=== PATIENT | male | born 1940 | race Caucasian/White ===

== ENCOUNTER 2016-11-13 05:58 | Observation (INO) | payer OTHER ==
[~2016-11-13] VITALS: Ht 172.7 cm; Wt 83.4 kg
[2016-11-13] VITALS (7 sets, daily range): BP systolic 97–130; BP diastolic 65–96; PULSE 62–89; RESP 15–20; TEMP 96–97; O2SAT 95–98
[~2016-11-13 05:58] MED LIST: CHOL50006 PO; COUM1TAB PO; COUM2TAB PO; HYDR12.56 PO; LIPI40TA PO; LISI20TA3 PO; MAGN500T4 PO; METO100T9 PO; OMEP20TA PO; VITA250L BUCCAL
[2016-11-13] MEDS ORDERED: DILTIAZEM HCL 25 MG/5 ML VIAL IV PUSH ONE (06:15)
[2016-11-13] MEDS ORDERED: SODIUM CHLORIDE 0.9% FLUSH 10 ML FLUSH IVF PRN (06:15)
[2016-11-13] MEDS ORDERED: DILTIAZEM INJ 125 MG in SODIUM CHLORIDE 0.9% INJ 100 ML IV PRN (06:15)
--- NOTE | 2016-11-13 06:20 | PD ---
HPI Chief Complaint: chest pain Time Seen by Provider: 06:08 Travel History International Travel<30 days: No Contact w/Intl Traveler<30days: No Traveled to known affect area: No History of Present Illness HPI The patient is a 75-year-old male with a history of coronary artery disease and atrial fibrillation who complains of chest tightness, nausea, palpitations, shortness of breath and diaphoresis for about 24 hours. He normally is in sinus rhythm but apparently is been in atrial fibrillation in the last [address] Fajardo is his construction coordinator and Dr. Harsha Hodge is his primary care physician. He denies any syncopal or near syncopal spells. The fullness is retrosternal. PFSH Past Medical History Hx Anticoagulant Therapy: Yes (COUMADIN) Atrial Fibrillation: Yes Anxiety: Yes Depression: No Heart Rhythm Problems: Yes (HX OF AFIB ) Cancer: No Cardiovascular Problems: No High Cholesterol: Yes Cerebrovascular Accident: Yes Diabetes: No Endocrine: No Genitourinary: No Hypertension: Yes Immune Disorder: No Kidney Stones: Yes Musculoskeletal: No Neurologic: No Psychiatric: Yes Reproductive: No Respiratory: No Thyroid Disease: No Past Surgical History Genitourinary Surgery: Yes Pacemaker: No Other Surgery: Yes (HERNIA SX X3) Social History Alcohol Use: Yes (SOCIALLY) Tobacco Use: No Substance Use: No Allergies-Medications (Allergen,Severity, Reaction): Coded Allergies: No Known Allergies (Unverified , 11/13/16) Reported Meds & Prescriptions Reported Meds & Active Scripts Active Reported Tamsulosin (Tamsulosin HCl) 0.4 Mg Cap 0.4 Mg PO HS Metoprolol Succinate ER 24 HR (Metoprolol Succinate) 100 Mg Tab 100 Mg PO DAILY Omeprazole 20 Mg Tab 20 Mg PO DAILY Lisinopril-Hctz 20-25 Mg Tab 1 Tab PO DAILY Hydrochlorothiazide 12.5 Mg Tab 12.5 Mg PO DAILY Vitamin B-12 (Cyanocobalamin) 250 Mcg Lozg 250 Mcg BUCCAL DAILY Lipitor (Atorvastatin Calcium) 40 Mg Tab 40 Mg PO HS Coumadin (Warfarin) 2 Mg Tab 2 Mg PO TU Coumadin (Warfarin) 1 Mg Tab 1.5 Mg PO MOWETHFRSASU Review of Systems Except as stated in HPI: all other systems reviewed are Neg Physical Exam Narrative GENERAL: The patient is alert, oriented 3 in moderate apparent distress with his nausea, chest discomfort. Blood pressure is 140/101, heart rate 108, chemistry 97% on 2 L nasal cannula, respirations 20, temperature 97.5 SKIN: Focused skin assessment: the skin is cool and diaphoretic.. HEAD: Atraumatic. Normocephalic. EYES: Pupils equal and round. No scleral icterus. No injection or drainage. ENT: No nasal bleeding or discharge. Mucous membranes pink and moist. NECK: Trachea midline. No JVD. No neck vein distention is present. CARDIOVASCULAR: Atrial fibrillation with RVR rhythm. No murmur appreciated. RESPIRATORY: No accessory muscle use. Clear to auscultation. Breath sounds equal bilaterally. GASTROINTESTINAL: Abdomen soft, non-tender, nondistended. Hepatic and splenic margins not palpable. MUSCULOSKELETAL: No obvious deformities. No clubbing. No cyanosis. No edema. NEUROLOGICAL: Awake and alert. No obvious cranial nerve deficits. Motor grossly within normal limits. Normal speech. PSYCHIATRIC: Appropriate mood and affect; insight and judgment normal. Data Data Last Documented VS Vital Signs Date Time Temp Pulse Resp B/P (MAP) Pulse Ox O2 Delivery O2 Flow Rate FiO2 11/13/16 06:45 62 20 102/65 (77) 97 2.00 11/13/16 06:45 Nasal Cannula Orders Orders Vital Signs (Adult) [id number],Q4H (11/13/16 06:08) Telephone Claims Representative / Telemetry [place].Q8H (11/13/16 06:08) Cardiac Rhythm [place].Q8H (11/13/16 06:08) Notify Dr: Other (11/13/16 06:08) Diltiazem Inj (Cardizem Inj) (11/13/16 06:15) Diltiazem Inj (Cardizem Inj) (11/13/16 06:15) Electrocardiogram (11/13/16 06:08) Complete Blood Count With Diff (11/13/16 06:08) Comprehensive Metabolic Panel (11/13/16 06:08) Magnesium (Mg) (11/13/16 06:08) Prothrombin Time / Inr (Pt) (11/13/16 06:08) Troponin I (11/13/16 06:08) Ecg Monitoring (11/13/16 06:08) Iv Access Insert/Monitor (11/13/16 06:08) Oximetry (11/13/16 06:08) Oxygen Administration (11/13/16 06:08) Sodium Chloride 0.9% Flush (Ns Flush) (11/13/16 06:15) Chest, Pa & Lat (11/13/16 06:08) B-Type Natriuretic Peptide (11/13/16 06:23) Potassium Chloride (Kcl) (11/13/16 07:00) Labs Laboratory Tests Test 11/13/16 06:00 White Blood Count 6.0 TH/MM3 Red Blood Count 5.00 MIL/MM3 Hemoglobin 16.0 GM/DL Hematocrit 47.6 % Mean Corpuscular Volume 95.3 FL Mean Corpuscular Hemoglobin 32.0 PG Mean Corpuscular Hemoglobin Concent 33.5 % Red Cell Distribution Width 13.1 % Platelet Count 134 TH/MM3 Mean Platelet Volume 9.4 FL Neutrophils (%) (Auto) 71.0 % Lymphocytes (%) (Auto) 14.1 % Monocytes (%) (Auto) 10.4 % Eosinophils (%) (Auto) 3.6 % Basophils (%) (Auto) 0.9 % Neutrophils # (Auto) 4.3 TH/MM3 Lymphocytes # (Auto) 0.8 TH/MM3 Monocytes # (Auto) 0.6 TH/MM3 Eosinophils # (Auto) 0.2 TH/MM3 Basophils # (Auto) 0.1 TH/MM3 CBC Comment DIFF FINAL Differential Comment Prothrombin Time 28.2 SEC Prothromb Time International Ratio 2.5 RATIO Blood Urea Nitrogen 24 MG/DL Creatinine 1.30 MG/DL Random Glucose 134 MG/DL Total Protein 7.6 GM/DL Albumin 3.9 GM/DL Calcium Level 8.7 MG/DL Magnesium Level 1.5 MG/DL Alkaline Phosphatase 89 U/L Aspartate Amino Transf (AST/SGOT) 27 U/L Alanine Aminotransferase (ALT/SGPT) 29 U/L Total Bilirubin 1.6 MG/DL Sodium Level 141 MEQ/L Potassium Level 3.3 MEQ/L Chloride Level 105 MEQ/L Carbon Dioxide Level 25.9 MEQ/L Anion Gap 10 MEQ/L Estimat Glomerular Filtration Rate 54 ML/MIN Troponin I LESS THAN 0.02 NG/ML MDM Medical Decision Making Medical Screen Exam Complete: Yes Emergency Medical Condition: Yes Medical Record Reviewed: Yes Interpretation(s) The EKG shows atrial fibrillation with RVR, ventricular rate [address] elevation, slight ST depression in V3, V4, V5 and V6. The chest x-ray shows stable mild cardiomegaly. The complete metabolic profile shows potassium 3.3, BUN of 24, GFR of 54, glucose 134 with total bilirubin 1.6 but is otherwise normal. The troponin I is normal. The ProTime is 28.2 with an INR of 2.5. Differential Diagnosis Atrial fibrillation with rapid ventricular response, acute coronary syndrome, esophageal pain, gastrointestinal pain, pleuritic pain, chest wall pain, electrolyte disorder, non-STEMI myocardial infarction Narrative Course Shortly after we gave the patient oxygen and the patient felt much better, his pain went away along with his nausea. He is no longer diaphoretic. It is now 0 640 and the patient was given Cardizem. His heart rate is now approximately 75. He is still in atrial fibrillation. He feels fine without any shortness of breath, chest pain, diaphoresis or nausea. It is now 0708 and the patient is transferred to Dr. Sprague. The patient is still asymptomatic. Diagnosis Primary Impression: Atrial fibrillation with RVR Jagdish Francis MD Nov 13, 2016 06:20
[2016-11-13] MEDS ORDERED: METO100T9 PO (06:22)
[2016-11-13] MEDS ORDERED: TAMS0.4C4 PO (06:22)
[2016-11-13 06:29] LABS: AUTOMATED NEUTROPHIL # 4.3 TH/MM3 (1.8-7.7); BASOPHIL # 0.1 TH/MM3 (0-0.2); BASOPHIL % 0.9 % (0.0-2.0); EOSINOPHIL # 0.2 TH/MM3 (0-0.4); EOSINOPHIL % 3.6 % (0.0-4.0); HEMATOCRIT 47.6 % (39.0-51.0); HEMO FLAGS DIFF FINAL; LYMPH % 14.1 % (9.0-44.0); LYMPHOCYTE # 0.8 TH/MM3 (1.0-4.8); MEAN CELL VOLUME 95.3 FL (80.0-100.0); MEAN CORPUSCULAR HGB CONC 33.5 % (32.0-36.0); MONO % 10.4 % (0.0-8.0); PLATELET COUNT 134 TH/MM3 (150-450); RED CELL DISTRIBUTION WIDTH 13.1 % (11.6-17.2)
[2016-11-13 06:41] LABS: CHLORIDE 105 MEQ/L (98-107); POTASSIUM 3.3 MEQ/L (3.5-5.1); SODIUM (NA) 141 MEQ/L (136-145)
[2016-11-13 06:44] LABS: INTERNATIONAL NORMALIZED RATIO 2.5 RATIO; PROTHROMBIN TIME - PATIENT 28.2 SEC (9.8-11.6)
[2016-11-13 06:45] LABS: ANION GAP 10 MEQ/L (5-15); BICARBONATE 25.9 MEQ/L (21.0-32.0)
[2016-11-13 06:46] LABS: BLOOD UREA NITROGEN 24 MG/DL (7-18); MAGNESIUM 1.5 MG/DL (1.5-2.5)
[2016-11-13 06:48] LABS: ALT (GPT) 29 U/L (12-78)
[2016-11-13 06:49] LABS: AST (GOT) 27 U/L (15-37); GLOMERULAR FILTRATION RATE 54 ML/MIN (>89)
[2016-11-13 06:50] LABS: TOTAL BILIRUBIN ADULT 1.6 MG/DL (0.2-1.0)
[2016-11-13 06:52] LABS: ALKALINE PHOSPHATASE 89 U/L (45-117)
--- NOTE | 2016-11-13 06:54 | RADRPT ---
EXAM DATE/TIME: 11/13/2016 06:24 [facility] COMPARISON: CHEST SINGLE AP, January 22, 2016, 17:39. INDICATIONS : Chest pain. MEDICAL HISTORY : Hypertension. Aneurysm, abdominal. Afib. CVA. SURGICAL HISTORY : Rotator cuff, left. Hernia ENCOUNTER: Initial ACUITY: 1 day PAIN SCORE: 7/10 LOCATION: Bilateral chest FINDINGS: PA and lateral views of the chest demonstrate the lungs to be symmetrically aerated without evidence of mass, infiltrate or effusion. The heart size appears mildly enlarged, stable. Pulmonary vasculatu re is normal.. Osseous structures are intact. CONCLUSION: Stable mild cardiomegaly. No evidence of acute cardiopulmonary disease. Qing Alva MD on November 13, 2016 at 6:50 Board Certified Radiologist. This report was verified electronically.
[2016-11-13] MEDS ORDERED: POTASSIUM CHLORIDE 20 MEQ CONTROLLED RELEASE TAB PO ONE (07:00)
[2016-11-13] MEDS ORDERED: MAGNESIUM HYDROXIDE SUSP 30 ML CUP PO PRN (07:30)
[2016-11-13] MEDS ORDERED: LACTULOSE SYRUP 20 GM/30 ML CUP PO PRN (07:30)
[2016-11-13] MEDS ORDERED: ONDANSETRON HCL 4 MG/2 ML VIAL IVP PRN (07:30)
[2016-11-13] MEDS ORDERED: BISACODYL 10 MG SUPP RECTAL PRN (07:30)
[2016-11-13] MEDS ORDERED: SENNOSIDES 8.6 MG TAB PO PRN (07:30)
[2016-11-13] MEDS ORDERED: MORPHINE SULFATE 4 MG/ML INJ IV PUSH PRN ×2 (07:30)
[2016-11-13] MEDS ORDERED: NITROGLYCERIN 0.4 MG SL 25 TABS/BTL SL PRN (07:30)
[2016-11-13] MEDS ORDERED: SODIUM CHLORIDE 0.9% FLUSH 10 ML FLUSH IV FLUSH PRN (07:30)
[2016-11-13] MEDS ORDERED: NALOXONE HCL 0.4 MG/ML AMP IV PUSH PRN (07:30)
--- NOTE | 2016-11-13 07:57 | PD ---
Physical Exam Narrative GENERAL: Well-nourished, well-developed patient. SKIN: Warm and dry. HEAD: Normocephalic and atraumatic. EYES: No injection or drainage. ENT: No nasal drainage noted. NECK: Supple, trachea midline. CARDIOVASCULAR: irregular rate and rhythm RESPIRATORY: no increased effort. No accessory muscle use. NEUROLOGICAL: Awake and alert. moves all extremities. Normal speech. Data Data Last Documented VS Vital Signs Date Time Temp Pulse Resp B/P (MAP) Pulse Ox O2 Delivery O2 Flow Rate FiO2 11/13/16 07:08 60 20 97 11/13/16 06:45 102/65 (77) 2.00 11/13/16 06:45 Nasal Cannula Orders Orders Vital Signs (Adult) [id number],Q4H (11/13/16 06:08) Manufacture Specialist / Telemetry [place].Q8H (11/13/16 06:08) Cardiac Rhythm [place].Q8H (11/13/16 06:08) Notify Dr: Other (11/13/16 06:08) Diltiazem Inj (Cardizem Inj) (11/13/16 06:15) Diltiazem Inj (Cardizem Inj) (11/13/16 06:15) Electrocardiogram (11/13/16 06:08) Complete Blood Count With Diff (11/13/16 06:08) Comprehensive Metabolic Panel (11/13/16 06:08) Magnesium (Mg) (11/13/16 06:08) Prothrombin Time / Inr (Pt) (11/13/16 06:08) Troponin I (11/13/16 06:08) Ecg Monitoring (11/13/16 06:08) Iv Access Insert/Monitor (11/13/16 06:08) Oximetry (11/13/16 06:08) Oxygen Administration (11/13/16 06:08) Sodium Chloride 0.9% Flush (Ns Flush) (11/13/16 06:15) Chest, Pa & Lat (11/13/16 06:08) B-Type Natriuretic Peptide (11/13/16 06:23) Potassium Chloride (Kcl) (11/13/16 07:00) Admit Order (Ed Use Only) (11/13/16 07:18) Place In Observation (11/13/16 ) Vital Signs (Adult) Q4H (11/13/16 07:18) Activity Oob With Assistance (11/13/16 07:18) Manufacture Specialist / Telemetry .CONTINUOUS (11/13/16 07:18) Diet Heart Healthy (11/13/16 Breakfast) Sodium Chloride 0.9% Flush (Ns Flush) (11/13/16 07:30) Sodium Chloride 0.9% Flush (Ns Flush) (11/13/16 09:00) Ondansetron Inj (Zofran Inj) (11/13/16 07:30) Comprehensive Metabolic Panel (11/14/16 06:00) Complete Blood Count With Diff (11/14/16 06:00) Enoxaparin Inj (Lovenox Inj) (11/13/16 08:00) Morphine Inj (Morphine Inj) (11/13/16 07:30) Morphine Inj (Morphine Inj) (11/13/16 07:30) Naloxone Inj (Narcan Inj) (11/13/16 07:30) Docusate Sodium-Senna (Kelsey-Colace) (11/13/16 09:00) Magnesium Hydroxide Liq (Milk Of Magnesi (11/13/16 07:30) Sennosides (Senokot) (11/13/16 07:30) Bisacodyl Supp (Dulcolax Supp) (11/13/16 07:30) Lactulose Liq (Lactulose Liq) (11/13/16 07:30) Labs Laboratory Tests Test 11/13/16 06:00 White Blood Count 6.0 TH/MM3 Red Blood Count 5.00 MIL/MM3 Hemoglobin 16.0 GM/DL Hematocrit 47.6 % Mean Corpuscular Volume 95.3 FL Mean Corpuscular Hemoglobin 32.0 PG Mean Corpuscular Hemoglobin Concent 33.5 % Red Cell Distribution Width 13.1 % Platelet Count 134 TH/MM3 Mean Platelet Volume 9.4 FL Neutrophils (%) (Auto) 71.0 % Lymphocytes (%) (Auto) 14.1 % Monocytes (%) (Auto) 10.4 % Eosinophils (%) (Auto) 3.6 % Basophils (%) (Auto) 0.9 % Neutrophils # (Auto) 4.3 TH/MM3 Lymphocytes # (Auto) 0.8 TH/MM3 Monocytes # (Auto) 0.6 TH/MM3 Eosinophils # (Auto) 0.2 TH/MM3 Basophils # (Auto) 0.1 TH/MM3 CBC Comment DIFF FINAL Differential Comment Prothrombin Time 28.2 SEC Prothromb Time International Ratio 2.5 RATIO Blood Urea Nitrogen 24 MG/DL Creatinine 1.30 MG/DL Random Glucose 134 MG/DL Total Protein 7.6 GM/DL Albumin 3.9 GM/DL Calcium Level 8.7 MG/DL Magnesium Level 1.5 MG/DL Alkaline Phosphatase 89 U/L Aspartate Amino Transf (AST/SGOT) 27 U/L Alanine Aminotransferase (ALT/SGPT) 29 U/L Total Bilirubin 1.6 MG/DL Sodium Level 141 MEQ/L Potassium Level 3.3 MEQ/L Chloride Level 105 MEQ/L Carbon Dioxide Level 25.9 MEQ/L Anion Gap 10 MEQ/L Estimat Glomerular Filtration Rate 54 ML/MIN Troponin I LESS THAN 0.02 NG/ML MDM Supervised Visit with SOPHIA: No Interpretation(s) CBC & BMP Diagram 11/13/16 06:00 Total Protein 7.6, Albumin 3.9, Calcium Level 8.7, Magnesium Level 1.5, Alkaline Phosphatase 89, Aspartate Amino Transf (AST/SGOT) 27, Alanine Aminotransferase (ALT/SGPT) 29, Total Bilirubin 1.6 H Narrative Course Signed over to me to admit to the hospitalist, patient updated and denies new concerns Physician Communication Physician Communication dr langston agrees to admit Diagnosis Primary Impression: Atrial fibrillation with RVR Admitting Information Admitting Physician Requests: Admit Josefa Lopez MD Nov 13, 2016 07:57
[2016-11-13] MEDS ORDERED: ENOXAPARIN SODIUM 40 MG/0.4 ML SYRINGE SQ SCH (08:00)
--- NOTE | 2016-11-13 08:16 | EKG ---
Date Performed: 11/13/2016 Time Performed: 06:04:18 PTAGE: 75 years EKG: ATRIAL FIBRILLATION WITH RAPID VENTRICULAR RESPONSE LEFT AXIS DEVIATION INCOMPLETE RIGHT BU NDLE BRANCH BLOCK NONSPECIFIC ST DEPRESSION ABNORMAL ECG NO PREVIOUS TRACING DOCTOR: Kev Shirley Interpretating Date/Time 11/13/2016 08:14:46
[2016-11-13] MEDS ORDERED: PILL SPLITTER OTHER PRN (08:45)
[2016-11-13] MEDS ORDERED: HYDROCHLOROTHIAZIDE 12.5 MG CAP PO SCH (09:00)
[2016-11-13] MEDS ORDERED: NON-FORMULARY DRUG (Lisinopril-Hctz 1 TAB) PO SCH (09:00)
[2016-11-13] MEDS ORDERED: LISINOPRIL 20 MG TAB PO SCH (09:00)
[2016-11-13] MEDS: CYANOCOBALAMIN 100 MCG TAB PO SCH (09:00)
[2016-11-13] MEDS ORDERED: METOPROLOL SUCCINATE 50 MG EXTENDED RELEASE TAB PO SCH (09:00)
[2016-11-13] MEDS: DOCUSATE SODIUM 50 MG/SENNA 8.6 MG TAB PO SCH ×2 (09:00→21:00)
--- NOTE | 2016-11-13 11:00 | HHI.HP ---
[facility] Harsha Hodge MD Admission Diagnosis afib with rvr, chest pain Diagnoses: (1) Nausea Diagnosis: Principal (2) Atrial fibrillation with RVR Diagnosis: Principal (3) Atrial fibrillation with rapid ventricular response Diagnosis: Principal (4) Dyspnea Diagnosis: Principal Travel History International Travel<30 Days: No Contact w/Intl Traveler <30 Da: No Traveled to Known Affected Are: No History of Present Illness Mr. Shrestha is a 75-year-old male. He has a history of paroxysmal atrial fibrillation. He reports that he was having shortness of breath, weakness, and nausea/came into the emergency department. At that point he was found to have A. fib RVR. He was treated with diltiazem and has had resolution of his tachyarrhythmia. He is feeling back to baseline when seen with resolution of shortness of breath and nausea. Shortness of breath and nausea could represent ACS, so ACS evaluation has been initiated. As an outpatient he follows with Dr. Shah. Other baseline medical conditions are hypertension and hyperlipidemia. He has a CVA in 2013 and has had abdominal hernia surgeries. Also he's had left shoulder arthroscopy. No other complaints today. Review of Systems Constitutional: COMPLAINS OF: Fatigue, DENIES: Fever, Chills, Dizziness, Change in appetite Endocrine: DENIES: Heat/cold intolerance Eyes: DENIES: Blurred vision, Diplopia, Eye inflammation, Eye pain Ears, nose, mouth, throat: DENIES: Tinnitus, Hearing loss, Vertigo Respiratory: COMPLAINS OF: Shortness of breath, DENIES: Cough, Wheezing, Hemoptysis, Sputum production Cardiovascular: COMPLAINS OF: Dyspnea on Exertion, DENIES: Chest pain, Palpitations, Syncope Gastrointestinal: COMPLAINS OF: Nausea, DENIES: Abdominal pain, Black stools, Bloody stools Musculoskeletal: DENIES: Joint pain, Muscle aches, Stiffness Integumentary: DENIES: Abnormal pigmentation, Nail changes, Pruritus, Rash Hematologic/lymphatic: DENIES: Bruising, Lymphadenopathy Immunologic/allergic: DENIES: Eczema, Urticaria Neurologic: DENIES: Abnormal gait, Headache, Paresthesias Psychiatric: DENIES: Anxiety, Confusion, Hallucinations Past Family Social History Past Medical History Paroxysmal atrial fibrillation Hypertension Hyperlipidemia Past Surgical History Abdominal hernia repair Left shoulder arthroscopy Reported Medications Reported Meds & Active Scripts Active Reported Tamsulosin (Tamsulosin HCl) 0.4 Mg Cap 0.4 Mg PO HS Metoprolol Succinate ER 24 HR (Metoprolol Succinate) 100 Mg Tab 100 Mg PO DAILY Omeprazole 20 Mg Tab 20 Mg PO DAILY Lisinopril-Hctz 20-25 Mg Tab 1 Tab PO DAILY Hydrochlorothiazide 12.5 Mg Tab 12.5 Mg PO DAILY Vitamin B-12 (Cyanocobalamin) 250 Mcg Lozg 250 Mcg BUCCAL DAILY Lipitor (Atorvastatin Calcium) 40 Mg Tab 40 Mg PO HS Coumadin (Warfarin) 2 Mg Tab 2 Mg PO TU Coumadin (Warfarin) 1 Mg Tab 1.5 Mg PO MOWETHFRSASU Allergies: Coded Allergies: No Known Allergies (Unverified , 11/13/16) Active Ordered Medications Administered Medications Medications (Trade) Dose Ordered Sig/Makenna Route PRN Reason Start Time Stop Time Status Last Admin Dose Admin Diltiazem HCl 125 mg/Sodium Chloride 125 ml @ 5 mls/hr TITRATE PRN IV Tachycardia 11/13/16 06:15 11/13/16 06:39 Family History Brother had heart disease Father had an acute CVA Mother had bladder cancer. Social History Social drinking only Past history of smoking, quit 40 years ago. No illicit drug abuse Physical Exam Vital Signs Vital Signs Date Time Temp Pulse Resp B/P (MAP) Pulse Ox O2 Delivery O2 Flow Rate FiO2 11/13/16 09:23 96.6 70 16 118/88 (98) 96 11/13/16 08:22 11/13/16 07:42 74 16 97/65 (76) 98 Room Air 11/13/16 07:08 60 20 97 11/13/16 06:45 62 20 102/65 (77) 97 2.00 11/13/16 06:45 98 Nasal Cannula 2.00 11/13/16 06:39 73 110/84 Physical Exam GENERAL: NAD, A&Ox3 HEAD: Normocephalic. NECK: Supple, trachea midline. No lymphadenopathy. EYES: No scleral icterus. No injection or drainage. CARDIOVASCULAR: Regular rate and rhythm without murmurs, gallops, or rubs. RESPIRATORY: Breath sounds equal bilaterally. No accessory muscle use. GASTROINTESTINAL: Abdomen soft, non-tender, nondistended. MUSCULOSKELETAL: No cyanosis, or edema. SKIN: Warm and dry. NEURO: No focal neurological deficitis. Laboratory Laboratory Tests Test 11/13/16 06:00 White Blood Count 6.0 Red Blood Count 5.00 Hemoglobin 16.0 Hematocrit 47.6 Mean Corpuscular Volume 95.3 Mean Corpuscular Hemoglobin 32.0 Mean Corpuscular Hemoglobin Concent 33.5 Red Cell Distribution Width 13.1 Platelet Count 134 Mean Platelet Volume 9.4 Neutrophils (%) (Auto) 71.0 Lymphocytes (%) (Auto) 14.1 Monocytes (%) (Auto) 10.4 Eosinophils (%) (Auto) 3.6 Basophils (%) (Auto) 0.9 Neutrophils # (Auto) 4.3 Lymphocytes # (Auto) 0.8 Monocytes # (Auto) 0.6 Eosinophils # (Auto) 0.2 Basophils # (Auto) 0.1 CBC Comment DIFF FINAL Differential Comment Prothrombin Time 28.2 Prothromb Time International Ratio 2.5 Blood Urea Nitrogen 24 Creatinine 1.30 Random Glucose 134 Total Protein 7.6 Albumin 3.9 Calcium Level 8.7 Magnesium Level 1.5 Alkaline Phosphatase 89 Aspartate Amino Transf (AST/SGOT) 27 Alanine Aminotransferase (ALT/SGPT) 29 Total Bilirubin 1.6 Sodium Level 141 Potassium Level 3.3 Chloride Level 105 Carbon Dioxide Level 25.9 Anion Gap 10 Estimat Glomerular Filtration Rate 54 Troponin I LESS THAN 0.02 B-Type Natriuretic Peptide 461 Result Diagram: 11/13/16 0611/13/16 06 Imaging Last Impressions Chest X-Ray 11/13/16 0608 Signed Impressions: Service Date/Time: Sunday, November 13, 2016 06:24 - CONCLUSION: Stable mild cardiomegaly. No evidence of acute cardiopulmonary disease. iQng Alva MD Caprini VTE Risk Assessment Caprini VTE Risk Assessment: Mod/High Risk (score >= 2) Caprini Risk Assessment Model Point Value = 1 Point Value = 2 Point Value = 3 Point Value = 5 Age 41-60 Minor surgery BMI > 25 kg/m2 Swollen legs Varicose veins or History of unexplained or recurrent spontaneous Oral contraceptives or hormone replacement Sepsis (< 1 month) Serious lung disease, including pneumonia (< 1 month) Abnormal pulmonary function Acute myocardial infarction Congestive heart failure (< 1 month) History of inflammatory bowel disease Medical patient at bed rest Age 61-74 Arthroscopic surgery Major open surgery (> 45 min) Laparoscopic surgery (> 45 min) Malignancy Confined to bed (> 72 hours) Immobilizing plaster cast Central venous access Age >= 75 History of VTE Family history of VTE Factor V Leiden Prothrombin [id number] Lupus anticoagulant Anticardiolipin antibodies Elevated serum homocysteine Heparin-induced thrombocytopenia Other congenital or acquired thrombophilia Stroke (< 1 month) Elective arthroplasty Hip, pelvis, or leg fracture Acute spinal cord injury (< 1 month) Prophylaxis Regimen Total Risk Factor Score Risk Level Prophylaxis Regimen 0-1 Low Early ambulation 2 Moderate Order ONE of the following: *Sequential Compression Device (SCD) *Heparin 5000 units SQ BID 3-4 Higher Order ONE of the following medications: *Heparin 5000 units SQ TID *Enoxaparin/Lovenox 40 mg SQ daily (WT < 150 kg, CrCl > 30 mL/min) *Enoxaparin/Lovenox 30 mg SQ daily (WT < 150 kg, CrCl > 10-29 mL/min) *Enoxaparin/Lovenox 30 mg SQ BID (WT < 150 kg, CrCl > 30 mL/min) AND/OR *Sequential Compression Device (SCD) 5 or more Highest Order ONE of the following medications: *Heparin 5000 units SQ TID (Preferred with Epidurals) *Enoxaparin/Lovenox 40 mg SQ daily (WT < 150 kg, CrCl > 30 mL/min) *Enoxaparin/Lovenox 30 mg SQ daily (WT < 150 kg, CrCl > 10-29 mL/min) *Enoxaparin/Lovenox 30 mg SQ BID (WT < 150 kg, CrCl > 30 mL/min) AND *Sequential Compression Device (SCD) Assessment and Plan Problem List: (1) Atrial fibrillation with rapid ventricular response ICD Code: I48.91 - Unspecified atrial fibrillation Status: Acute (2) Nausea ICD Code: R11.0 - Nausea (3) Dyspnea ICD Code: R06.00 - Dyspnea, unspecified Status: Acute (4) Atrial fibrillation with RVR ICD Code: I48.91 - Unspecified atrial fibrillation Status: Acute Assessment and Plan Assessment and plan 75-year-old male admitted secondary to A. fib RVR with possible ACS. Possible acute coronary syndrome Evaluate for ACS Follow cardiac enzymes Aspirin daily When necessary oxygen When necessary morphine for pain. When necessary nitroglycerin Follow on telemetry Cardiology consult Paroxysmal atrial fibrillation A. fib RVR RVR has resolved Follow on telemetry Continue Coumadin Monitor for recurrence Cardiology consulted Hypertension Continue baseline blood pressure treatments Monitor blood pressures Adjust if needed Hyperlipidemia Continue statin FLP in a.m. DVT prophylaxis Continue Coumadin Jose F Dawson MD Nov 13, 2016 11:00
[2016-11-13] MEDS: SODIUM CHLORIDE 0.9% FLUSH 10 ML FLUSH IV FLUSH SCH ×2 (11:42→21:00)
[2016-11-13] MEDS: PANTOPRAZOLE SOD 20 MG DELAYED RELEASE TAB PO SCH (11:44)
[2016-11-13] MEDS: HYDROCHLOROTHIAZIDE 25 MG TAB PO SCH (11:52)
[2016-11-13 12:47] LABS: CREATINE KINASE 229 U/L (39-308)
--- NOTE | 2016-11-13 13:53 | EKG ---
Date Performed: 11/13/2016 Time Performed: 12:09:08 PTAGE: 75 years EKG: ATRIAL FIBRILLATION LEFT AXIS DEVIATION INCOMPLETE RIGHT BUNDLE BRANCH BLOCK NONSPECIFIC T WAVE ABNORMALITY ABNORMAL ECG PREVIOUS TRACING : 11/13/2016 06.04 Compared to previous tracing, nonspecific lateral ST depres tej has resolved. DOCTOR: Kev Shirley Interpretating Date/Time 11/13/2016 13:53:01
[2016-11-13] MEDS ORDERED: WARFARIN SOD 1 MG TAB PO SCH (16:00)
--- NOTE | 2016-11-13 16:07 | MB ---
cc: MAURY STOCKTON MD DATE OF CONSULTATION: 11/13/2016. REASON FOR CONSULTATION: Atrial fibrillation. HISTORY OF PRESENT ILLNESS: The patient is a pleasant 75-year-old gentleman known to me who has a history of atrial fibrillation maintained on warfarin. The patient had been in his usual state of good health until a day or two ago when he began feeling more dyspneic on exertion and generally feeling poor but in a quite nonspecific fashion. He denied any specific symptoms like chest pain, lightheadedness, dizziness or syncope. He presented to the emergency department and was found to be in a rapid atrial fibrillation. He was started on Cardizem IV but this has since been discontinued and he is now rate-controlled and feeling well. He denies any residual symptoms whatsoever and again feels at his baseline. PAST MEDICAL HISTORY: 1. Atrial fibrillation maintained on warfarin. 2. CVA. 3. Abdominal aortic aneurysm. 4. Hypertension. 5. Hyperlipidemia. MEDICATIONS: Current medications: 1. Warfarin. 2. Aspirin 325 milligrams daily. 3. Lipitor 40 milligrams at bedtime. 4. Flomax 40 milligrams at bedtime. 5. Hydrochlorothiazide ___.5 milligrams daily. 6. Toprol XL 100 milligrams daily. 7. Protonix 20 milligrams daily. 8. Lisinopril 20 milligrams daily. 9. Hydrochlorothiazide 25 milligrams daily. ALLERGIES: NO KNOWN DRUG ALLERGIES. PHYSICAL EXAMINATION: VITAL SIGNS: Afebrile, pulse 71, respiratory rate 15, blood pressure 130/96, satting 97% on room air. GENERAL: A pleasant well-appearing gentleman in no distress. NECK: No jugular venous distention. LUNGS: Clear to auscultation bilaterally. CARDIOVASCULAR: Irregularly irregular rhythm with a regular rate. No murmurs appreciated. ABDOMEN: Benign. EXTREMITIES: No edema. LABORATORY DATA: White count 6.0, hematocrit 47.6, platelets 134,000. Sodium 141, potassium 3.3, chloride 105, bicarbonate 25.9, BUN 24, creatinine 1.3, glucose 134. Cardiac enzymes are negative x3. BNP is 461. INR is 2.5. EKGS: EKG shows atrial fibrillation with rapid ventricular response with diffuse nonspecific S-T changes. Subsequent EKGs show a rate controlled atrial fibrillation with improvement of previously seen S-T changes. IMPRESSION: 1. Atrial fibrillation. It is unclear why the patient's atrial fibrillation was rapid as he says he was taking all of his medications. He is currently well rate-controlled. I believe he would tolerate a slight increase in his metoprolol just to ensure his rate stays controlled and given some lower blood pressures earlier, I will cut down his lisinopril to compensate. I asked him to ambulate. and if his heart rate is controlled overnight and in the morning. he could be discharged home to follow up with me as an outpatient. Thank you again for the opportunity to participate this patient's care. MD ROEL Rogers/LEONARD /3:35 PM /3:51 PM
[2016-11-13 18:54] LABS: CREATINE KINASE 210 U/L (39-308)
[2016-11-13] MEDS ORDERED: ALPRAZolam 0.25 MG TAB PO ONE (20:15)
[2016-11-13] MEDS ORDERED: ATORVASTATIN 40 MG TAB PO SCH (21:00)
[2016-11-13] MEDS ORDERED: TAMSULOSIN HCL 0.4 MG CAP PO SCH (21:00)
[2016-11-14] VITALS: BP 112/87; PULSE 93; RESP 20; TEMP 96.8; O2SAT 98
--- NOTE | 2016-11-14 01:14 | EKG ---
Date Performed: 11/13/2016 Time Performed: 18:12:30 PTAGE: 75 years EKG: ATRIAL FIBRILLATION WITH RAPID VENTRICULAR RESPONSE LEFT AXIS DEVIATION INCOMPLETE RIGHT BU NDLE BRANCH BLOCK NONSPECIFIC ST DEPRESSION ABNORMAL ECG PREVIOUS TRACING : 11/13/2016 12.09 No significant change from previous tracing noted. DOCTOR: Kev Shirley Interpretating Date/Time 11/14/2016 01:13:10
[2016-11-14 04:00] VITALS: BP 110/85; PULSE 86; RESP 18; TEMP 97.3; O2SAT 97
[2016-11-14 08:05] LABS: AUTOMATED NEUTROPHIL # 4.2 TH/MM3 (1.8-7.7); BASOPHIL % 0.6 % (0.0-2.0); EOSINOPHIL # 0.2 TH/MM3 (0-0.4); EOSINOPHIL % 3.1 % (0.0-4.0); HEMO FLAGS DIFF FINAL; LYMPH % 9.4 % (9.0-44.0); LYMPHOCYTE # 0.5 TH/MM3 (1.0-4.8); MEAN CORPUSCULAR HEMOGLOBIN 32.6 PG (27.0-34.0); MEAN CORPUSCULAR HGB CONC 33.6 % (32.0-36.0); MONO % 9.6 % (0.0-8.0); NEUT % 77.3 % (16.0-70.0); PLATELET COUNT 120 TH/MM3 (150-450); RED BLOOD COUNT 4.85 MIL/MM3 (4.50-5.90); RED CELL DISTRIBUTION WIDTH 13.4 % (11.6-17.2); WHITE BLOOD COUNT 5.4 TH/MM3 (4.0-11.0)
[2016-11-14 08:16] LABS: CHLORIDE 103 MEQ/L (98-107); POTASSIUM 3.3 MEQ/L (3.5-5.1); SODIUM (NA) 139 MEQ/L (136-145)
[2016-11-14 08:25] LABS: ANION GAP 9 MEQ/L (5-15); BICARBONATE 26.7 MEQ/L (21.0-32.0)
[2016-11-14 08:26] LABS: BLOOD UREA NITROGEN 25 MG/DL (7-18)
[2016-11-14 08:28] LABS: ALT (GPT) 28 U/L (12-78)
[2016-11-14 08:29] LABS: AST (GOT) 21 U/L (15-37); GLOMERULAR FILTRATION RATE 72 ML/MIN (>89)
[2016-11-14 08:30] LABS: TOTAL BILIRUBIN ADULT 1.2 MG/DL (0.2-1.0)
[2016-11-14 08:31] LABS: ALKALINE PHOSPHATASE 82 U/L (45-117)
[2016-11-14] MEDS ORDERED: METOPROLOL SUCCINATE 50 MG EXTENDED RELEASE TAB PO SCH (09:00)
[2016-11-14] MEDS ORDERED: ASPIRIN 325 MG TAB PO SCH (09:00)
[2016-11-14] MEDS ORDERED: LISINOPRIL 10 MG TAB PO SCH (09:00)
[2016-11-14] MEDS: SODIUM CHLORIDE 0.9% FLUSH 10 ML FLUSH IV FLUSH SCH (09:28)
[2016-11-14] MEDS: PANTOPRAZOLE SOD 20 MG DELAYED RELEASE TAB PO SCH (09:29)
[2016-11-14] MEDS: DOCUSATE SODIUM 50 MG/SENNA 8.6 MG TAB PO SCH (09:29)
[2016-11-14] MEDS: CYANOCOBALAMIN 100 MCG TAB PO SCH (09:30)
[2016-11-14] MEDS: HYDROCHLOROTHIAZIDE 25 MG TAB PO SCH (09:31)
[2016-11-14 09:50] LABS: HDL CHOLESTEROL 34.6 MG/DL (40.0-60.0); LDL CHOLESTEROL 40 MG/DL (0-99)
[2016-11-14] MEDS ORDERED: LISI10TA3 PO (10:08)
[2016-11-14] MEDS ORDERED: METO50TA11 PO (10:08)
--- NOTE | 2016-11-14 10:13 | HHI.DS ---
Discharge Summary Admission Date Nov 13, 2016 at 07:20 Discharge Date: Nov 14, 2016 Admitting Diagnosis afib with rvr, chest pain (1) Atrial fibrillation with rapid ventricular response ICD Code: I48.91 - Unspecified atrial fibrillation Diagnosis: Principal Status: Acute (2) Nausea ICD Code: R11.0 - Nausea Diagnosis: Secondary (3) Dyspnea ICD Code: R06.00 - Dyspnea, unspecified Diagnosis: Secondary Status: Acute (4) Atrial fibrillation with RVR ICD Code: I48.91 - Unspecified atrial fibrillation Diagnosis: Principal Status: Acute Procedures None Brief History - From Admission Mr. Shrestha is a 75-year-old male. He has a history of paroxysmal atrial fibrillation. He reports that he was having shortness of breath, weakness, and nausea/came into the emergency department. At that point he was found to have A. fib RVR. He was treated with diltiazem and has had resolution of his tachyarrhythmia. He is feeling back to baseline when seen with resolution of shortness of breath and nausea. Shortness of breath and nausea could represent ACS, so ACS evaluation has been initiated. As an outpatient he follows with Dr. Shah. Other baseline medical conditions are hypertension and hyperlipidemia. He has a CVA in 2012 and has had abdominal hernia surgeries. Also he's had left shoulder arthroscopy. No other complaints today. CBC/BMP: 11/14/16 0725 11/14/16 0725 Significant Findings Laboratory Tests Test 11/13/16 06:00 11/13/16 12:00 11/13/16 18:15 11/14/16 07:25 Platelet Count 134 TH/MM3 (150-450) 120 TH/MM3 (150-450) Neutrophils (%) (Auto) 71.0 % (16.0-70.0) 77.3 % (16.0-70.0) Monocytes (%) (Auto) 10.4 % (0.0-8.0) 9.6 % (0.0-8.0) Lymphocytes # (Auto) 0.8 TH/MM3 (1.0-4.8) 0.5 TH/MM3 (1.0-4.8) Prothrombin Time 28.2 SEC (9.8-11.6) Blood Urea Nitrogen 24 MG/DL (7-18) 25 MG/DL (7-18) Random Glucose 134 MG/DL (74-106) 122 MG/DL (74-106) Total Bilirubin 1.6 MG/DL (0.2-1.0) 1.2 MG/DL (0.2-1.0) Potassium Level 3.3 MEQ/L (3.5-5.1) 3.3 MEQ/L (3.5-5.1) Estimat Glomerular Filtration Rate 54 ML/MIN (>89) 72 ML/MIN (>89) Troponin I LESS THAN 0.02 NG/ML LESS THAN 0.02 NG/ML LESS THAN 0.02 NG/ML B-Type Natriuretic Peptide 461 PG/ML (0-100) Cholesterol Level 100 MG/DL (120-200) HDL Cholesterol 34.6 MG/DL (40.0-60.0) Hospital Course Mr. Shrestha is a 75-year-old male. He came in secondary to shortness of breath and nausea. He was found to have A. fib RVR. This responded quickly to diltiazem. He is on metoprolol at baseline. Cardiac enzymes and EKGs were monitored and showed no evidence of ischemic etiology. Cardiology has recommended increasing his metoprolol with decrease in lisinopril to compensate. Patient was monitored again overnight and showed no evidence of recurrence of A. fib RVR. At this point he is cleared by cardiology for discharge home and he is medically stable for discharge today. Pt Condition on Discharge: Stable Discharge Disposition: Discharge Home Discharge Time: <= 30 minutes Discharge Instructions DIET: Follow Instructions for: Heart Healthy Diet Activities you can perform: Regular-No Restrictions Follow up Referrals: PCP Follow-up - 2 Weeks New Medications: Lisinopril (Lisinopril) 10 Mg Tab 10 MG PO DAILY for Blood Pressure Management, #30 TAB Metoprolol Succinate ER 24 HR (Metoprolol Succinate ER 24 HR) 50 Mg Tab 150 MG PO DAILY for Cardiac Arrhythmia, #90 TAB Continued Medications: Atorvastatin (Lipitor) 40 Mg Tab 40 MG PO HS for Cholesterol Management, #30 TAB 0 Refills Cyanocobalamin (Vitamin B-12) 250 Mcg Lozg 250 MCG BUCCAL DAILY for Nutritional Supplement, #1 BOTTLE 0 Refills Hydrochlorothiazide (Hydrochlorothiazide) 12.5 Mg Tab 12.5 MG PO DAILY, #30 TAB 0 Refills Omeprazole (Omeprazole) 20 Mg Tab 20 MG PO DAILY, #30 TAB 0 Refills Tamsulosin (Tamsulosin) 0.4 Mg Cap 0.4 MG PO HS for Manage Prostate Problems, #30 CAP 0 Refills Warfarin (Coumadin) 1 Mg Tab 1.5 MG PO MOWETHFRSASU for Prevent Blood Clot, #30 TAB 0 Refills Warfarin (Coumadin) 2 Mg Tab 2 MG PO TU for Prevent Blood Clot, #30 TAB 0 Refills Discontinued Medications: Lisinopril-Hctz (Lisinopril-Hctz) 20-25 Mg Tab 1 TAB PO DAILY for Blood Pressure Management, #30 TAB 0 Refills Metoprolol Succinate ER 24 HR (Metoprolol Succinate ER 24 HR) 100 Mg Tab 100 MG PO DAILY, #30 TAB 0 Refills Jose F Dawson MD Nov 14, 2016 10:13
[2016-11-14] MEDS ORDERED: WARFARIN SOD 1 MG TAB PO SCH (16:00)
[2016-11-15] MEDS ORDERED: WARFARIN SOD 1 MG TAB PO SCH (16:00)
[2016-11-16] MEDS ORDERED: WARFARIN SOD 2 MG TAB PO SCH (08:30)
[2016-11-18] MEDS ORDERED: WARFARIN SOD 1 MG TAB PO SCH (16:00)
== END 2016-11-14 11:04 | disposition home or self-care (01) ==
LOC: PHED 05:58 → PHEDA 07:20 → PH5A 08:18
PROVIDERS: ADMIT Hospitalist; ATTEND Hospitalist
DX: I48.91 Unspecified atrial fibrillation (principal); R11.0 Nausea; R06.00 Dyspnea, unspecified; I10 Essential (primary) hypertension; I25.10 Atherosclerotic heart disease of native coronary artery without angina pectoris; E78.5 Hyperlipidemia, unspecified; Z79.01 Long term (current) use of anticoagulants; Z86.73 Personal history of transient ischemic attack (TIA), and cerebral infarction without residual deficits; Z87.442 Personal history of urinary calculi; Z87.891 Personal history of nicotine dependence
CPT/HCPCS: 71020; 80053; 80061; 82550; 83735; 83880; 84484; 85025; 85610; 93005; 96374; 99285; G0378

== ENCOUNTER 2016-12-27 04:44 | Emergency (ER) | payer OTHER ==
[~2016-12-27] VITALS: Ht 170.2 cm; Wt 85.4 kg
[~2016-12-27 04:44] MED LIST changes: -CHOL50006 PO; +LISI10TA3 PO; -LISI20TA3 PO; -MAGN500T4 PO; -METO100T9 PO; +METO1TAB9 PO; -OMEP20TA PO; +OMEP20TA93 PO; +TAMS0.4C4 PO
[2016-12-27] MEDS ORDERED: WARF4TAB52 PO (04:57)
[2016-12-27] MEDS ORDERED: METO1TAB43 PO (04:57)
[2016-12-27 04:58] VITALS: BP 148/96; PULSE 128; RESP 18; TEMP 98.5; O2SAT 98
[2016-12-27 05:10] VITALS: O2SAT 97
[2016-12-27] MEDS ORDERED: SODIUM CHLORIDE 0.9% FLUSH 10 ML FLUSH IVF PRN (05:15)
--- NOTE | 2016-12-27 05:21 | PD ---
HPI Chief Complaint: Cardiac Complaint Time Seen by Provider: 04:53 Travel History International Travel<30 days: No Contact w/Intl Traveler<30days: No Traveled to known affect area: No History of Present Illness HPI The patient is a 76-year-old male with a history of intermittent atrial fibrillation and is on metoprolol and Coumadin for this who complains of atrial fibrillation in the last 24 hours. He denies any chest pain but has a very slight shortness of breath. The same thing happened about one month ago he was admitted briefly but his heart rate appeared to be well controlled and was discharged after about a day. Patient states he does not want to be admitted. PFSH Past Medical History Hx Anticoagulant Therapy: Yes Atrial Fibrillation: Yes Anxiety: Yes Depression: No Heart Rhythm Problems: Yes (HX OF AFIB ) Cancer: No Cardiovascular Problems: Yes High Cholesterol: Yes Cerebrovascular Accident: Yes Diabetes: No Diminished Hearing: No Endocrine: No Gastrointestinal Disorders: No Genitourinary: No Hypertension: Yes Immune Disorder: No Implanted Vascular Access Dvce: No Kidney Stones: Yes Musculoskeletal: No Neurologic: No Psychiatric: Yes Reproductive: No Respiratory: No Thyroid Disease: No Tetanus Vaccination: Unknown Influenza Vaccination: Yes Past Surgical History Genitourinary Surgery: Yes Pacemaker: No Other Surgery: Yes (HERNIA SX X3) Social History Alcohol Use: Yes (SOCIALLY) Tobacco Use: No Substance Use: No Allergies-Medications (Allergen,Severity, Reaction): Coded Allergies: No Known Allergies (Unverified Adverse Reaction, Unknown, 12/27/16) Reported Meds & Prescriptions Reported Meds & Active Scripts Active Lisinopril 10 Mg Tab 10 Mg PO DAILY Reported Metoprolol Succinate ER 24 HR (Metoprolol Succinate) 100 Mg Tab 100 Mg PO BID Warfarin 1 Mg Tab 1.5 Mg PO DAILY Tamsulosin (Tamsulosin HCl) 0.4 Mg Cap 0.4 Mg PO HS Omeprazole 20 Mg Tab 20 Mg PO DAILY Hydrochlorothiazide 12.5 Mg Tab 12.5 Mg PO DAILY Vitamin B-12 (Cyanocobalamin) 250 Mcg Lozg 250 Mcg BUCCAL DAILY Lipitor (Atorvastatin Calcium) 40 Mg Tab 40 Mg PO HS Review of Systems Except as stated in HPI: all other systems reviewed are Neg Physical Exam Narrative GENERAL: The patient is alert, oriented 3 and no apparent distress. Specifically, he is in no respiratory distress. Respiratory rate is 18 and oximetry is 98%. His vital signs show blood pressure 148/96 with heart rate of 128 but the rest the vital signs are normal. SKIN: Focused skin assessment warm/dry. HEAD: Atraumatic. Normocephalic. EYES: Pupils equal and round. No scleral icterus. No injection or drainage. ENT: No nasal bleeding or discharge. Mucous membranes pink and moist. NECK: Trachea midline. No JVD. CARDIOVASCULAR: Atrial fibrillation with RVR at a rate in the 120s.. No murmur appreciated. RESPIRATORY: No accessory muscle use. Clear to auscultation. Breath sounds equal bilaterally. GASTROINTESTINAL: Abdomen soft, non-tender, nondistended. Hepatic and splenic margins not palpable. MUSCULOSKELETAL: No obvious deformities. No clubbing. No cyanosis. No edema. NEUROLOGICAL: Awake and alert. No obvious cranial nerve deficits. Motor grossly within normal limits. Normal speech. PSYCHIATRIC: Appropriate mood and affect; insight and judgment normal. Data Data Last Documented VS Vital Signs Date Time Temp Pulse Resp B/P (MAP) Pulse Ox O2 Delivery O2 Flow Rate FiO2 12/27/16 06:55 76 16 110/79 (89) 98 Room Air 12/27/16 04:58 98.5 Orders Orders Electrocardiogram (12/27/16 ) Electrocardiogram (12/27/16 05:03) B-Type Natriuretic Peptide (12/27/16 05:03) Ckmb (Isoenzyme) Profile (12/27/16 05:03) Complete Blood Count With Diff (12/27/16 05:03) Comprehensive Metabolic Panel (12/27/16 05:03) Magnesium (Mg) (12/27/16 05:03) Prothrombin Time / Inr (Pt) (12/27/16 05:03) Act Partial Throm Time (Ptt) (12/27/16 05:03) Troponin I (12/27/16 05:03) Ecg Monitoring (12/27/16 05:03) Bilateral Bp Monitoring (12/27/16 05:03) Iv Access Insert/Monitor (12/27/16 05:03) Oximetry (12/27/16 05:03) Oxygen Administration (12/27/16 05:03) Sodium Chloride 0.9% Flush (Ns Flush) (12/27/16 05:15) Chest, Pa & Lat (12/27/16 05:03) Metoprolol Tartrate Inj (Lopressor Inj) (12/27/16 05:30) CKMB (12/27/16 05:00) CKMB% (12/27/16 05:00) Labs Laboratory Tests Test 12/27/16 05:00 White Blood Count 5.7 TH/MM3 Red Blood Count 4.63 MIL/MM3 Hemoglobin 14.7 GM/DL Hematocrit 44.3 % Mean Corpuscular Volume 95.8 FL Mean Corpuscular Hemoglobin 31.8 PG Mean Corpuscular Hemoglobin Concent 33.2 % Red Cell Distribution Width 12.9 % Platelet Count 135 TH/MM3 Mean Platelet Volume 8.6 FL Neutrophils (%) (Auto) 78.7 % Lymphocytes (%) (Auto) 6.5 % Monocytes (%) (Auto) 9.0 % Eosinophils (%) (Auto) 3.0 % Basophils (%) (Auto) 2.8 % Neutrophils # (Auto) 4.3 TH/MM3 Lymphocytes # (Auto) 0.4 TH/MM3 Monocytes # (Auto) 0.5 TH/MM3 Eosinophils # (Auto) 0.2 TH/MM3 Basophils # (Auto) 0.2 TH/MM3 CBC Comment AUTO DIFF Differential Comment AUTO DIFF CONFIRMED Platelet Estimate LOW Platelet Morphology Comment NORMAL Red Cell Morphology Comment NORMAL Prothrombin Time 24.2 SEC Prothromb Time International Ratio 2.1 RATIO Activated Partial Thromboplast Time 31.4 SEC Blood Urea Nitrogen 16 MG/DL Creatinine 1.10 MG/DL Random Glucose 132 MG/DL Total Protein 7.1 GM/DL Albumin 3.6 GM/DL Calcium Level 8.5 MG/DL Magnesium Level 1.5 MG/DL Alkaline Phosphatase 85 U/L Aspartate Amino Transf (AST/SGOT) 26 U/L Alanine Aminotransferase (ALT/SGPT) 42 U/L Total Bilirubin 1.3 MG/DL Sodium Level 140 MEQ/L Potassium Level 3.6 MEQ/L Chloride Level 105 MEQ/L Carbon Dioxide Level 24.9 MEQ/L Anion Gap 10 MEQ/L Estimat Glomerular Filtration Rate 65 ML/MIN Total Creatine Kinase 102 U/L Creatine Kinase MB 1.5 NG/ML Troponin I LESS THAN 0.02 NG/ML B-Type Natriuretic Peptide 686 PG/ML MDM Medical Decision Making Medical Screen Exam Complete: Yes Emergency Medical Condition: Yes Medical Record Reviewed: Yes Interpretation(s) The chest x-ray shows mild cardiomegaly which is stable compared to previous chest x-rays and no acute cardiopulmonary disease. The complete metabolic profile shows a GFR of 65, glucose 132, total bilirubin 1.3 but is otherwise unremarkable. The CBC is normal. The BNP is 686. The cardiac enzymes are normal. The EKG shows atrial fibrillation with rapid ventricular response of [address] elevation or depression. Differential Diagnosis Atrial fibrillation with RVR, acute coronary syndrome, electrolyte disorder, congestive heart failure Narrative Course The patient has atrial fibrillation with RVR in the 120s. He was given 5 of metoprolol IV and his heart rate is been below 100 and the last hour. He has no chest pain and he thought he might have a slight amount of shortness of breath but he does not appear short of breath at all. His respirations are 18 and oximetry is 98%. I discussed the patient with Dr. Soares and the patient can call his office to set up appointment this morning. Impression: Atrial fib with RVR Plan: The patient will be seen by Dr. Fajadro this morning, I discussed the patient with Dr. Fajardo. Physician Communication Physician Communication Discussed the patient with Dr. Fajardo, the patient will call the office later on this morning to set up an appointment this morning. Additional Instructions: When you get home, call Dr. Fajardo's office to set up appointment this morning. He is expecting to see you this morning. Disposition: 01 DISCHARGE HOME Condition: Stable Jagdish Francis MD Dec 27, 2016 05:21
[2016-12-27] MEDS ORDERED: METOPROLOL TARTRATE 5 MG/5 ML VIAL IVS SCH (05:30)
[2016-12-27 05:32] LABS: AUTOMATED NEUTROPHIL # 4.3 TH/MM3 (1.8-7.7); BASOPHIL # 0.2 TH/MM3 (0-0.2); BASOPHIL % 2.8 % (0.0-2.0); EOSINOPHIL # 0.2 TH/MM3 (0-0.4); HEMATOCRIT 44.3 % (39.0-51.0); LYMPH % 6.5 % (9.0-44.0); LYMPHOCYTE # 0.4 TH/MM3 (1.0-4.8); MEAN CELL VOLUME 95.8 FL (80.0-100.0); MEAN CORPUSCULAR HEMOGLOBIN 31.8 PG (27.0-34.0); MEAN CORPUSCULAR HGB CONC 33.2 % (32.0-36.0); NEUT % 78.7 % (16.0-70.0); PLATELET COUNT 135 TH/MM3 (150-450); RED BLOOD COUNT 4.63 MIL/MM3 (4.50-5.90); RED CELL DISTRIBUTION WIDTH 12.9 % (11.6-17.2); WHITE BLOOD COUNT 5.7 TH/MM3 (4.0-11.0)
[2016-12-27 05:40] VITALS: BP_SYST 138; BP_SYST 148; BP_DIAS 84; BP_DIAS 96
[2016-12-27 05:44] LABS: CHLORIDE 105 MEQ/L (98-107); POTASSIUM 3.6 MEQ/L (3.5-5.1); SODIUM (NA) 140 MEQ/L (136-145)
[2016-12-27 05:48] LABS: ANION GAP 10 MEQ/L (5-15); BICARBONATE 24.9 MEQ/L (21.0-32.0); BLOOD UREA NITROGEN 16 MG/DL (7-18); MAGNESIUM 1.5 MG/DL (1.5-2.5)
[2016-12-27 05:49] LABS: HEMO FLAGS AUTO DIFF
[2016-12-27 05:51] LABS: ALT (GPT) 42 U/L (12-78); AST (GOT) 26 U/L (15-37); GLOMERULAR FILTRATION RATE 65 ML/MIN (>89)
[2016-12-27 05:52] LABS: TOTAL BILIRUBIN ADULT 1.3 MG/DL (0.2-1.0)
[2016-12-27 05:54] LABS: ALKALINE PHOSPHATASE 85 U/L (45-117); CREATINE KINASE 102 U/L (39-308)
[2016-12-27 06:06] LABS: CKMB 1.5 NG/ML (0.5-3.6)
--- NOTE | 2016-12-27 06:06 | RADRPT ---
EXAM DATE/TIME: 12/27/2016 05:20 [facility] COMPARISON: CHEST PA & LAT, November 13, 2016, 6:24. INDICATIONS : Chest pain. MEDICAL HISTORY : Hypertension. Aneurysm, abdominal. Afib. CVA. SURGICAL HISTORY : Rotator cuff, left. Hernia ENCOUNTER: Initial ACUITY: 1 day PAIN SCORE: 4/10 LOCATION: Bilateral chest FINDINGS: PA and lateral views of the chest demonstrate the lungs to be symmetrically aerated without evidence of mass, infiltrate or effusion. The cardiomediastinal contours are unremarkable. Osseous structure s are intact. CONCLUSION: Normal examination. Inderjit Robbins MD on December 27, 2016 at 6:04 Board Certified Radiologist. This report was verified electronically.
[2016-12-27 06:16] LABS: APTT (PATIENT) 31.4 SEC (24.3-30.1); INTERNATIONAL NORMALIZED RATIO 2.1 RATIO; PROTHROMBIN TIME - PATIENT 24.2 SEC (9.8-11.6)
[2016-12-27 06:36] VITALS: BP 116/71; PULSE 89; RESP 18; O2SAT 97
[2016-12-27 06:37] LABS: PLATELET ESTIMATE SMEAR LOW (NORMAL); PLATELET MORPHOLOGY NORMAL (NORMAL); SCAN/DIFF AUTO DIFF CONFIRMED
[2016-12-27 06:55] VITALS: BP 110/79; PULSE 76; RESP 16; O2SAT 98
--- NOTE | 2016-12-27 19:10 | EKG ---
Date Performed: 12/27/2016 Time Performed: 04:57:23 PTAGE: 76 years EKG: ATRIAL FIBRILLATION WITH RAPID VENTRICULAR RESPONSE MARKED LEFT AXIS DEVIATION INCOMPLETE R IGHT BUNDLE BRANCH BLOCK NONSPECIFIC ST & T-WAVE ABNORMALITY ABNORMAL ECG Since PREVIOUS TRACING , no significant change noted PREVIOUS TRACIN11/13/2016 18.12 DOCTOR: Joni Mcintyre Interpretating Date/Time 12/27/2016 19:08:43
== END 2016-12-27 07:39 | disposition home or self-care (01) ==
LOC: PHED 04:44
DX: I48.91 Unspecified atrial fibrillation (principal); I45.10 Unspecified right bundle-branch block; I10 Essential (primary) hypertension; E78.00 Pure hypercholesterolemia, unspecified; Z86.73 Personal history of transient ischemic attack (TIA), and cerebral infarction without residual deficits; Z79.01 Long term (current) use of anticoagulants
CPT/HCPCS: 71020; 80053; 82550; 82552; 83735; 83880; 84484; 85025; 85610; 85730; 93005; 96374

== ENCOUNTER 2017-01-02 02:29 | Emergency (ER) | payer OTHER ==
[~2017-01-02] VITALS: Ht 172.7 cm; Wt 83.5 kg
[~2017-01-02 02:29] MED LIST changes: -COUM1TAB PO; -COUM2TAB PO; +METO1TAB43 PO; -METO1TAB9 PO; +WARF4TAB52 PO
[2017-01-02 02:34] VITALS: BP 137/120; PULSE 128; RESP 22; TEMP 97.6; O2SAT 96
[2017-01-02] MEDS ORDERED: METOPROLOL TARTRATE 5 MG/5 ML VIAL IV PUSH ONE (03:00)
[2017-01-02 03:12] VITALS: BP 155/85; PULSE 79; RESP 18; TEMP 97.6; O2SAT 97
[2017-01-02] MEDS ORDERED: FUROSEMIDE 40 MG/4 ML VIAL IV PUSH ONE (04:07)
[2017-01-02] MEDS ORDERED: AZITHROMYCIN 250 MG TAB PO ONE (04:17)
[2017-01-02] MEDS ORDERED: AZITHROMYCIN 250 MG TAB ONE (04:25)
[2017-01-02 04:42] VITALS: BP 151/100
[2017-01-02 04:45] LABS: INTERNATIONAL NORMALIZED RATIO 2.4 RATIO; PROTHROMBIN TIME - PATIENT 27.4 SEC (9.8-11.6)
[2017-01-02 04:50] LABS: AUTOMATED NEUTROPHIL # 3.3 TH/MM3 (1.8-7.7); BASOPHIL # 0.1 TH/MM3 (0-0.2); EOSINOPHIL # 0.2 TH/MM3 (0-0.4); HEMATOCRIT 49.2 % (39.0-51.0); HEMO FLAGS DIFF FINAL; LYMPH % 17.5 % (9.0-44.0); LYMPHOCYTE # 0.9 TH/MM3 (1.0-4.8); MEAN CELL VOLUME 94.9 FL (80.0-100.0); MEAN CORPUSCULAR HEMOGLOBIN 31.2 PG (27.0-34.0); MEAN CORPUSCULAR HGB CONC 32.8 % (32.0-36.0); MONO % 11.8 % (0.0-8.0); NEUT % 66.7 % (16.0-70.0); PLATELET COUNT 156 TH/MM3 (150-450); RED BLOOD COUNT 5.18 MIL/MM3 (4.50-5.90); RED CELL DISTRIBUTION WIDTH 12.9 % (11.6-17.2); WHITE BLOOD COUNT 5.1 TH/MM3 (4.0-11.0)
[2017-01-02 04:54] LABS: ALKALINE PHOSPHATASE 88 U/L (45-117); ALT (GPT) 66 U/L (12-78); ANION GAP 7 MEQ/L (5-15); AST (GOT) 43 U/L (15-37); BICARBONATE 26.7 MEQ/L (21.0-32.0); BLOOD UREA NITROGEN 22 MG/DL (7-18); CHLORIDE 107 MEQ/L (98-107); CREATINE KINASE 103 U/L (39-308); DIGOXIN 0.3 NG/ML (0.8-2.0); GLOMERULAR FILTRATION RATE 65 ML/MIN (>89); POTASSIUM 3.6 MEQ/L (3.5-5.1); SODIUM (NA) 141 MEQ/L (136-145); TOTAL BILIRUBIN ADULT 1.2 MG/DL (0.2-1.0)
[2017-01-02 04:55] LABS: CKMB 1.6 NG/ML (0.5-3.6)
--- NOTE | 2017-01-02 05:42 | PD ---
HPI Chief Complaint: Cardiac Complaint Time Seen by Provider: 02:40 Travel History International Travel<30 days: No Contact w/Intl Traveler<30days: No Traveled to known affect area: No History of Present Illness HPI The patient is 76-year-old male who has a history of intermittent atrial fibrillation. He states his heart went back into atrial fibrillation at about 12 noon yesterday. He denies any chest pain or shortness of breath. Dr. Fajardo is his digital business analyst and increased his metoprolol to 150 in the morning and 100 in the p.m. He also gave the patient Cardizem but after 2 doses the patient had too many side effects of nausea and discontinued the Cardizem. The patient was then put on digoxin. PFSH Past Medical History Hx Anticoagulant Therapy: Yes Atrial Fibrillation: Yes Anxiety: Yes Depression: No Heart Rhythm Problems: Yes (HX OF AFIB ) Cancer: No Cardiovascular Problems: Yes High Cholesterol: Yes Cerebrovascular Accident: Yes Diabetes: No Diminished Hearing: No Endocrine: No Gastrointestinal Disorders: No Genitourinary: No Hypertension: Yes Immune Disorder: No Implanted Vascular Access Dvce: No Kidney Stones: Yes Musculoskeletal: No Neurologic: No Psychiatric: Yes Reproductive: No Respiratory: No Thyroid Disease: No Past Surgical History Genitourinary Surgery: Yes Pacemaker: No Other Surgery: Yes (HERNIA SX X3) Social History Alcohol Use: Yes (SOCIALLY) Tobacco Use: No Substance Use: No Allergies-Medications (Allergen,Severity, Reaction): Coded Allergies: No Known Allergies (Unverified Allergy, Unknown, 01/02/17) Reported Meds & Prescriptions Reported Meds & Active Scripts Active Lisinopril 10 Mg Tab 10 Mg PO DAILY Reported Metoprolol Succinate ER 24 HR (Metoprolol Succinate) 100 Mg Tab 100 Mg PO BID Warfarin 1 Mg Tab 1.5 Mg PO DAILY Tamsulosin (Tamsulosin HCl) 0.4 Mg Cap 0.4 Mg PO HS Omeprazole 20 Mg Tab 20 Mg PO DAILY Hydrochlorothiazide 12.5 Mg Tab 12.5 Mg PO DAILY Vitamin B-12 (Cyanocobalamin) 250 Mcg Lozg 250 Mcg BUCCAL DAILY Lipitor (Atorvastatin Calcium) 40 Mg Tab 40 Mg PO HS Review of Systems Except as stated in HPI: all other systems reviewed are Neg Physical Exam Narrative GENERAL: The patient is alert, oriented 3 in no apparent distress. The initial blood pressure is 155/85. Temperature 97.6 with pulse rate 128 and respirations 22 and oximetry 97% with Maria Elena Coma Scale 15. SKIN: Focused skin assessment warm/dry. HEAD: Atraumatic. Normocephalic. EYES: Pupils equal and round. No scleral icterus. No injection or drainage. ENT: No nasal bleeding or discharge. Mucous membranes pink and moist. NECK: Trachea midline. No JVD. CARDIOVASCULAR: Regular rate and rhythm. No murmur appreciated. RESPIRATORY: No accessory muscle use. Clear to auscultation. Breath sounds equal bilaterally. GASTROINTESTINAL: Abdomen soft, non-tender, nondistended. Hepatic and splenic margins not palpable. MUSCULOSKELETAL: No obvious deformities. No clubbing. No cyanosis. No edema. NEUROLOGICAL: Awake and alert. No obvious cranial nerve deficits. Motor grossly within normal limits. Normal speech. PSYCHIATRIC: Appropriate mood and affect; insight and judgment normal. Data Data Last Documented VS Vital Signs Date Time Temp Pulse Resp B/P (MAP) Pulse Ox O2 Delivery O2 Flow Rate FiO2 01/02/17 03:12 97.6 79 18 155/85 (108) 97 Room Air Orders Orders Azithromycin (Zithromax) (01/02/17 04:25) Metoprolol Tartrate Inj (Lopressor Inj) (01/02/17 03:00) Furosemide Inj (Lasix Inj) (01/02/17 04:07) Azithromycin (Zithromax) (01/02/17 04:17) Ckmb (Isoenzyme) Profile (01/02/17 02:30) Comprehensive Metabolic Panel (01/02/17 02:30) Digoxin (01/02/17 02:30) Troponin I (01/02/17 02:30) B-Type Natriuretic Peptide (01/02/17 02:30) Complete Blood Count With Diff (01/02/17 02:30) Prothrombin Time / Inr (Pt) (01/02/17 02:30) CKMB (01/02/17 02:30) CKMB% (01/02/17 02:30) Ed Discharge Order (01/02/17 05:30) Labs Laboratory Tests Test 01/02/17 02:30 White Blood Count 5.1 TH/MM3 Red Blood Count 5.18 MIL/MM3 Hemoglobin 16.1 GM/DL Hematocrit 49.2 % Mean Corpuscular Volume 94.9 FL Mean Corpuscular Hemoglobin 31.2 PG Mean Corpuscular Hemoglobin Concent 32.8 % Red Cell Distribution Width 12.9 % Platelet Count 156 TH/MM3 Mean Platelet Volume 9.8 FL Neutrophils (%) (Auto) 66.7 % Lymphocytes (%) (Auto) 17.5 % Monocytes (%) (Auto) 11.8 % Eosinophils (%) (Auto) 3.0 % Basophils (%) (Auto) 1.0 % Neutrophils # (Auto) 3.3 TH/MM3 Lymphocytes # (Auto) 0.9 TH/MM3 Monocytes # (Auto) 0.6 TH/MM3 Eosinophils # (Auto) 0.2 TH/MM3 Basophils # (Auto) 0.1 TH/MM3 CBC Comment DIFF FINAL Differential Comment Prothrombin Time 27.4 SEC Prothromb Time International Ratio 2.4 RATIO Blood Urea Nitrogen 22 MG/DL Creatinine 1.10 MG/DL Random Glucose 123 MG/DL Total Protein 7.2 GM/DL Albumin 3.7 GM/DL Calcium Level 8.4 MG/DL Alkaline Phosphatase 88 U/L Aspartate Amino Transf (AST/SGOT) 43 U/L Alanine Aminotransferase (ALT/SGPT) 66 U/L Total Bilirubin 1.2 MG/DL Sodium Level 141 MEQ/L Potassium Level 3.6 MEQ/L Chloride Level 107 MEQ/L Carbon Dioxide Level 26.7 MEQ/L Anion Gap 7 MEQ/L Estimat Glomerular Filtration Rate 65 ML/MIN Total Creatine Kinase 103 U/L Creatine Kinase MB 1.6 NG/ML Troponin I 0.03 NG/ML B-Type Natriuretic Peptide 904 PG/ML Digoxin Level 0.3 NG/ML MDM Medical Decision Making Medical Screen Exam Complete: Yes Emergency Medical Condition: Yes Medical Record Reviewed: Yes Interpretation(s) The EKG shows atrial fibrillation with response rate of 94. The CBC is normal. The chest x-ray shows non-consolidated infiltrate in the medial left lower lung. The complete metabolic profile is normal and the troponin is normal. The ProTime is 27.4 with an INR of 2.4. The BNP is 1904. Differential Diagnosis Atrial fibrillation with rapid ventricular response, acute coronary syndrome, congestive heart failure, electrolyte disorder, noncompliance to medications Narrative Course The patient has atrial fibrillation with rapid ventricular response. He was given 5 of Lopressor and the pulse rate stayed between 80-90 throughout his course of stay in the emergency department. I discussed the patient with Dr. Fajardo and he told me to have the patient take metoprolol 150 in the morning , 100 mg at noon and 100 mg in the p.m. He then said the patient should call his office Tuesday to set up an appointment. The patient felt comfortable this and the patient is feeling no chest pain or shortness of breath at this time. Diagnosis Primary Impression: Atrial fibrillation with rapid ventricular response Additional Impressions: Noncompliance with medication regimen Adverse reaction to drug Additional Instructions: As we discussed, increase the metoprolol to 150 in the morning, 100 at noon and [address] in [address] p[address]m. Call Dr. Fajardo's office Tuesday to set up an appointment. Med/Other Pt SpecificInfo: Existing Med Changed Disposition: DISCHARGE HOME Condition: Stable Jagdish Francis MD Jan 02, 2017 05:42
--- NOTE | 2017-01-02 07:09 | RADRPT ---
EXAM DATE/TIME: 01/02/2017 03:08 [facility] COMPARISON: CHEST PA & LAT, December 27, 2016, 5:20. CHEST SINGLE AP, January 22, 2016, 17:39. INDICATIONS : Shortness of breath. MEDICAL HISTORY : Hypertension. Aneurysm, abdominal. Afib. CVA SURGICAL HISTORY : Rotator cuff, left. Hernia ENCOUNTER: Initial ACUITY: 1 day PAIN SCORE: 0/10 LOCATION: Bilateral chest FINDINGS: There is an infiltrate in the medial left lower lung without consolidated lesion causing loss of deli neation of the portion of the medial left hemidiaphragm. Right lung is clear. The heart size is sta ble and upper limits normal. Mild tortuosity descending thoracic aorta. The osseous structures are intact. CONCLUSION: Non-consolidative infiltrate in the medial left lower lung. Tom Alexander MD on January 02, 2017 at 4:06 Board Certified Radiologist. This report was verified electronically.
--- NOTE | 2017-01-02 12:29 | EKG ---
Date Performed: 01/02/2017 Time Performed: 02:40:01 PTAGE: 76 years EKG: ATRIAL FIBRILLATION MARKED LEFT AXIS DEVIATION INCOMPLETE RIGHT BUNDLE BRANCH BLOCK MODERAT E ST DEPRESSION Compared to prior tracing no significant change ABNORMAL ECG PREVIOUS TRACING : 12/27/16 @ 0457 DOCTOR: Siddhartha Joyce Interpretating Date/Time 01/02/2017 12:29:18
== END 2017-01-02 04:42 | disposition home or self-care (01) ==
LOC: PHED 02:29
DX: I48.91 Unspecified atrial fibrillation (principal); R11.0 Nausea; T46.1X5A Adverse effect of calcium-channel blockers, initial encounter; Z91.14 Patient's other noncompliance with medication regimen; Z79.01 Long term (current) use of anticoagulants
CPT/HCPCS: 71010; 80053; 80162; 82550; 82552; 83880; 84484; 85025; 85610; 93005; 96374; 96375; 99284; J1940

== ENCOUNTER 2017-01-04 07:22 | Observation (INO) | payer OTHER ==
[2017-01-04] VITALS (7 sets, daily range): BP systolic 139–162; BP diastolic 84–115; PULSE 60–123; RESP 16–21; TEMP 97.3–98.2; O2SAT 94–98
[~2017-01-04] VITALS: Ht 172.7 cm; Wt 82.7 kg
--- NOTE | 2017-01-04 07:44 | PD ---
HPI Chief Complaint: Respiratory Symptoms Time Seen by Provider: 07:30 Travel History International Travel<30 days: No Contact w/Intl Traveler<30days: No Traveled to known affect area: No History of Present Illness HPI Patient is a 76-year-old male with a history of atrial fibrillation with multiple presentations this month under controlled rate presents emergency department for evaluation of shortness of breath and weakness. She clarifies to mean shortness of breath on exertion since last night. The patient states she's also had a tight sensation in his neck. Denies any chest pain denies headache focalized weakness orthopnea. He has been admitted twice this month into the emergency department given a dose of metoprolol both times and then discharged after discussion with his flight simulator teacher Dr. Shah. Patient states she's never had any shortness of breath like this before. He is coming by his who is concerned for his gradual decline. The patient has been on digoxin for the past week after Cardizem causes of headache and nausea and was not tolerated by the patient.. On coumadin. PFSH Past Medical History Hx Anticoagulant Therapy: Yes Atrial Fibrillation: Yes Anxiety: Yes Depression: No Heart Rhythm Problems: Yes (HX OF AFIB ) Cancer: No Cardiovascular Problems: Yes (A. FIB., HTN, CHOL) High Cholesterol: Yes Cerebrovascular Accident: Yes Diabetes: No Diminished Hearing: No Endocrine: No Gastrointestinal Disorders: No Genitourinary: No Hypertension: Yes Immune Disorder: No Implanted Vascular Access Dvce: No Kidney Stones: Yes Musculoskeletal: No Neurologic: No Psychiatric: Yes Reproductive: No Respiratory: No Thyroid Disease: No Tetanus Vaccination: Unknown Past Surgical History Genitourinary Surgery: Yes Pacemaker: No Other Surgery: Yes (HERNIA SX X3) Social History Alcohol Use: Yes (SOCIALLY) Tobacco Use: No Substance Use: No Allergies-Medications (Allergen,Severity, Reaction): Coded Allergies: No Known Allergies (Unverified Allergy, Unknown, 01/04/17) Reported Meds & Prescriptions Reported Meds & Active Scripts Active Lisinopril 10 Mg Tab 10 Mg PO DAILY Reported Diltiazem ER 24 HR 240 Mg Amanda 240 Mg PO DAILY Digoxin 0.125 Mg Tab 0.125 Mg PO DAILY Tamsulosin (Tamsulosin HCl) 0.4 Mg Cap 0.4 Mg PO HS Metoprolol Succinate ER 24 HR (Metoprolol Succinate) 100 Mg Tab 100 Mg PO BID Warfarin 1 Mg Tab 1.5 Mg PO DAILY Tamsulosin (Tamsulosin HCl) 0.4 Mg Cap 0.4 Mg PO HS Omeprazole 20 Mg Tab 20 Mg PO DAILY Hydrochlorothiazide 12.5 Mg Tab 12.5 Mg PO DAILY Vitamin B-12 (Cyanocobalamin) 250 Mcg Lozg 250 Mcg BUCCAL DAILY Lipitor (Atorvastatin Calcium) 40 Mg Tab 40 Mg PO HS Review of Systems Except as stated in HPI: all other systems reviewed are Neg Physical Exam Narrative GENERAL: WD/WN in nad. SKIN: Warm and dry. HEAD: Atraumatic. Normocephalic. EYES: Pupils equal and round. No scleral icterus. No injection or drainage. ENT: No nasal bleeding or discharge. Mucous membranes pink and moist. NECK: Trachea midline. No JVD. CARDIOVASCULAR: Tachycardia with irregularly/irregular. 2+ bilaterally equal pulses in all 4 extremities. RESPIRATORY: No accessory muscle use. Faint bibasilar crackles. Breath sounds equal bilaterally. GASTROINTESTINAL: Abdomen soft, non-tender, nondistended. Hepatic and splenic margins not palpable. MUSCULOSKELETAL: Extremities without clubbing, cyanosis, or edema. No obvious deformities. NEUROLOGICAL: Awake and alert. No obvious cranial nerve deficits. Motor grossly within normal limits. Five out of 5 muscle strength in the arms and legs. Normal speech. PSYCHIATRIC: Appropriate mood and affect; insight and judgment normal. Data Data Last Documented VS Vital Signs Date Time Temp Pulse Resp B/P (MAP) Pulse Ox O2 Delivery O2 Flow Rate FiO2 01/04/17 09:55 97 Nasal Cannula 2.00 01/04/17 09:54 75 16 141/85 (103) 01/04/17 07:30 98.1 Orders Orders B-Type Natriuretic Peptide (01/04/17 07:44) Ckmb (Isoenzyme) Profile (01/04/17 07:44) Complete Blood Count With Diff (01/04/17 07:44) Comprehensive Metabolic Panel (01/04/17 07:44) Digoxin (01/04/17 07:44) Magnesium (Mg) (01/04/17 07:44) Prothrombin Time / Inr (Pt) (01/04/17 07:44) Act Partial Throm Time (Ptt) (01/04/17 07:44) Troponin I (01/04/17 07:44) Chest, Single Ap (01/04/17 07:44) Ecg Monitoring (01/04/17 07:44) Iv Access Insert/Monitor (01/04/17 07:44) Oximetry (01/04/17 07:44) Oxygen Administration (01/04/17 07:44) Sodium Chloride 0.9% Flush (Ns Flush) (01/04/17 07:45) Aspirin Chew (Aspirin Chew) (01/04/17 08:00) Consult Cardiology (01/04/17 ) Admit Order (Ed Use Only) (01/04/17 ) Labs Laboratory Tests Test 01/04/17 08:00 White Blood Count 5.7 TH/MM3 Red Blood Count 5.17 MIL/MM3 Hemoglobin 16.6 GM/DL Hematocrit 49.4 % Mean Corpuscular Volume 95.6 FL Mean Corpuscular Hemoglobin 32.1 PG Mean Corpuscular Hemoglobin Concent 33.5 % Red Cell Distribution Width 12.6 % Platelet Count 176 TH/MM3 Mean Platelet Volume 9.9 FL Neutrophils (%) (Auto) 79.6 % Lymphocytes (%) (Auto) 8.0 % Monocytes (%) (Auto) 8.3 % Eosinophils (%) (Auto) 2.2 % Basophils (%) (Auto) 1.9 % Neutrophils # (Auto) 4.5 TH/MM3 Lymphocytes # (Auto) 0.5 TH/MM3 Monocytes # (Auto) 0.5 TH/MM3 Eosinophils # (Auto) 0.1 TH/MM3 Basophils # (Auto) 0.1 TH/MM3 CBC Comment DIFF FINAL Differential Comment Prothrombin Time 28.2 SEC Prothromb Time International Ratio 2.5 RATIO Activated Partial Thromboplast Time 32.0 SEC Blood Urea Nitrogen 18 MG/DL Creatinine 1.10 MG/DL Random Glucose 121 MG/DL Total Protein 7.2 GM/DL Albumin 3.8 GM/DL Calcium Level 8.9 MG/DL Magnesium Level 1.6 MG/DL Alkaline Phosphatase 87 U/L Aspartate Amino Transf (AST/SGOT) 32 U/L Alanine Aminotransferase (ALT/SGPT) 62 U/L Total Bilirubin 1.5 MG/DL Sodium Level 141 MEQ/L Potassium Level 3.8 MEQ/L Chloride Level 107 MEQ/L Carbon Dioxide Level 28.0 MEQ/L Anion Gap 6 MEQ/L Estimat Glomerular Filtration Rate 65 ML/MIN Total Creatine Kinase 75 U/L Troponin I LESS THAN 0.02 NG/ML B-Type Natriuretic Peptide 723 PG/ML Digoxin Level 0.5 NG/ML MDM Medical Decision Making Medical Screen Exam Complete: Yes Emergency Medical Condition: Yes Interpretation(s) patient's EKG shows atrial fibrillation at a rate of 121, left axis deviation, normal R-wave progression. No concerning ST segment changes. Incomplete right bundle-branch block is noted as well. The patient on telemetry is having a rate of about 70-80 and atrial fibrillation fairly frequently with runs in the 120s and 130s. Differential Diagnosis Afib/rvr, electrolyte abnormality, acs unlikely, ami unlikely. Narrative Course Patient roomed in emergency department, initial heart rate was in the 120s to 130s in nature fibrillation, without pharmacological intervention the patient fairly rate controlled in the 60s to 70s. Oxygen saturations are within normal limits and the patient appears well. It is his third admission to the emergency department the past 2 weeks, the patient was discussed with Dr. Shah who states that at this point the patient should consider being placed into the hospital for consultation with activity specialist for possible ablation. The patient is initially reluctant to stay but ultimately he wants to. Patient was then discussed with Dr. Castillo, will be transferred to the main hospital based on Dr. Shah's recommendations. Diagnosis Primary Impression: Atrial fibrillation with rapid ventricular response Admitting Information Admitting Physician Requests: Admit Condition: Stable Jj Ferro MD Jan 04, 2017 07:44
[2017-01-04] MEDS ORDERED: SODIUM CHLORIDE 0.9% FLUSH 10 ML FLUSH IVF PRN (07:45)
[2017-01-04] MEDS ORDERED: DILT1TAB4 PO (07:55)
[2017-01-04] MEDS ORDERED: DIGO0.12 PO (07:55)
[2017-01-04] MEDS ORDERED: TAMS0.4C4 PO (07:55)
[2017-01-04] MEDS ORDERED: ASPIRIN 81 MG CHEW TAB CHEW ONE (08:00)
[2017-01-04 08:10] LABS: AUTOMATED NEUTROPHIL # 4.5 TH/MM3 (1.8-7.7); BASOPHIL # 0.1 TH/MM3 (0-0.2); BASOPHIL % 1.9 % (0.0-2.0); EOSINOPHIL # 0.1 TH/MM3 (0-0.4); EOSINOPHIL % 2.2 % (0.0-4.0); HEMATOCRIT 49.4 % (39.0-51.0); HEMO FLAGS DIFF FINAL; LYMPHOCYTE # 0.5 TH/MM3 (1.0-4.8); MEAN CELL VOLUME 95.6 FL (80.0-100.0); MEAN CORPUSCULAR HEMOGLOBIN 32.1 PG (27.0-34.0); MEAN CORPUSCULAR HGB CONC 33.5 % (32.0-36.0); MONO % 8.3 % (0.0-8.0); NEUT % 79.6 % (16.0-70.0); PLATELET COUNT 176 TH/MM3 (150-450); RED BLOOD COUNT 5.17 MIL/MM3 (4.50-5.90); RED CELL DISTRIBUTION WIDTH 12.6 % (11.6-17.2); WHITE BLOOD COUNT 5.7 TH/MM3 (4.0-11.0)
[2017-01-04 08:17] LABS: CHLORIDE 107 MEQ/L (98-107); POTASSIUM 3.8 MEQ/L (3.5-5.1); SODIUM (NA) 141 MEQ/L (136-145)
[2017-01-04 08:21] LABS: ANION GAP 6 MEQ/L (5-15); BLOOD UREA NITROGEN 18 MG/DL (7-18); INTERNATIONAL NORMALIZED RATIO 2.5 RATIO; MAGNESIUM 1.6 MG/DL (1.5-2.5); PROTHROMBIN TIME - PATIENT 28.2 SEC (9.8-11.6)
[2017-01-04 08:24] LABS: ALT (GPT) 62 U/L (12-78); AST (GOT) 32 U/L (15-37)
[2017-01-04 08:25] LABS: GLOMERULAR FILTRATION RATE 65 ML/MIN (>89)
[2017-01-04 08:26] LABS: TOTAL BILIRUBIN ADULT 1.5 MG/DL (0.2-1.0)
[2017-01-04 08:27] LABS: ALKALINE PHOSPHATASE 87 U/L (45-117)
--- NOTE | 2017-01-04 08:35 | RADRPT ---
EXAM DATE/TIME: 01/04/2017 08:03 [facility] COMPARISON: CHEST SINGLE AP, January 02, 2017, 3:08. INDICATIONS : Short of breath. MEDICAL HISTORY : Hypertension. Aneurysm, abdominal. Afib. CVA SURGICAL HISTORY : Rotator cuff, left. Hernia ENCOUNTER: Initial ACUITY: 3 days PAIN SCORE: 0/10 LOCATION: Bilateral chest FINDINGS: Improved aeration in the medial left lower lung zone. No new focal pleural or parenchymal opacities. Cardiac silhouette is in the upper limits of normal to mildly enlarged. Remainder of the exam is unch anged. CONCLUSION: 1. Improved aeration in the medial left lower lung zone. 2. Otherwise, no significant change or new acute abnormality Joshua Adan MD on January 04, 2017 at 8:25 Board Certified Radiologist. This report was verified electronically.
[2017-01-04 08:45] LABS: CREATINE KINASE 75 U/L (39-308)
[2017-01-04 09:04] LABS: DIGOXIN 0.5 NG/ML (0.8-2.0)
[2017-01-04] MEDS ORDERED: ACETAMINOPHEN/HYDROcodone 325 MG/5 MG TAB PO PRN (11:30)
[2017-01-04] MEDS ORDERED: RESP: ALBUTEROL 2.5 MG/IPRATROPIUM 0.5 MG NEB (PRN) NEB (11:30)
[2017-01-04] MEDS ORDERED: ACETAMINOPHEN 325 MG TAB PO PRN (11:30)
[2017-01-04] MEDS ORDERED: ONDANSETRON HCL 4 MG/2 ML VIAL IVP PRN (11:30)
[2017-01-04] MEDS ORDERED: MAGNESIUM HYDROXIDE SUSP 30 ML CUP PO PRN (11:30)
[2017-01-04] MEDS ORDERED: SODIUM CHLORIDE 0.9% FLUSH 10 ML FLUSH IV FLUSH PRN (11:30)
[2017-01-04] MEDS ORDERED: NALOXONE HCL 0.4 MG/ML AMP IV PUSH PRN (11:30)
[2017-01-04] MEDS: ACETAMINOPHEN 325 MG TAB PO PRN (13:29)
[2017-01-04 15:46] LABS: CREATINE KINASE 79 U/L (39-308)
--- NOTE | 2017-01-04 19:18 | EKG ---
Date Performed: 01/04/2017 Time Performed: 07:29:29 PTAGE: 76 years EKG: ATRIAL FIBRILLATION WITH RAPID VENTRICULAR RESPONSE MARKED LEFT AXIS DEVIATION INCOMPLETE R IGHT BUNDLE BRANCH BLOCK NONSPECIFIC ST & T-WAVE ABNORMALITY ABNORMAL ECG PREVIOUS TRACING 01/02/17 ST depression consistent with ischemia, but similar to the prior tra cing. DOCTOR: Isreal Peña Interpretating Date/Time 01/04/2017 19:17:05
[2017-01-04] MEDS: METOPROLOL SUCCINATE 50 MG EXTENDED RELEASE TAB PO SCH (20:39)
[2017-01-04] MEDS: TAMSULOSIN HCL 0.4 MG CAP PO SCH (20:39)
[2017-01-04] MEDS: ATORVASTATIN 40 MG TAB PO SCH (20:39)
[2017-01-04] MEDS: SODIUM CHLORIDE 0.9% FLUSH 10 ML FLUSH IV FLUSH SCH (20:40)
[2017-01-05] VITALS (13 sets, daily range): BP systolic 98–167; BP diastolic 60–115; PULSE 48–109; RESP 18–20; TEMP 97.3–98.1; O2SAT 93–97
[2017-01-05 01:22] LABS: CREATINE KINASE 73 U/L (39-308)
[2017-01-05 05:51] LABS: AUTOMATED NEUTROPHIL # 3.2 TH/MM3 (1.8-7.7); BASOPHIL % 0.5 % (0.0-2.0); EOSINOPHIL # 0.1 TH/MM3 (0-0.4); EOSINOPHIL % 3.3 % (0.0-4.0); HEMATOCRIT 42.4 % (39.0-51.0); HEMO FLAGS DIFF FINAL; LYMPH % 9.8 % (9.0-44.0); LYMPHOCYTE # 0.4 TH/MM3 (1.0-4.8); MEAN CELL VOLUME 95.6 FL (80.0-100.0); MEAN CORPUSCULAR HGB CONC 34.6 % (32.0-36.0); MONO % 13.2 % (0.0-8.0); NEUT % 73.2 % (16.0-70.0); PLATELET COUNT 131 TH/MM3 (150-450); RED BLOOD COUNT 4.43 MIL/MM3 (4.50-5.90); RED CELL DISTRIBUTION WIDTH 13.5 % (11.6-17.2); WHITE BLOOD COUNT 4.4 TH/MM3 (4.0-11.0)
[2017-01-05 06:14] LABS: ALT (GPT) 46 U/L (12-78); ANION GAP 8 MEQ/L (5-15); AST (GOT) 22 U/L (15-37); BICARBONATE 26.7 MEQ/L (21.0-32.0); BLOOD UREA NITROGEN 25 MG/DL (7-18); CHLORIDE 107 MEQ/L (98-107); GLOMERULAR FILTRATION RATE 79 ML/MIN (>89); POTASSIUM 3.5 MEQ/L (3.5-5.1); SODIUM (NA) 142 MEQ/L (136-145)
[2017-01-05 06:15] LABS: ALKALINE PHOSPHATASE 71 U/L (45-117); TOTAL BILIRUBIN ADULT 1.3 MG/DL (0.2-1.0)
[2017-01-05] MEDS ORDERED: POTASSIUM CHLORIDE 20 MEQ CONTROLLED RELEASE TAB PO ONE (09:00)
[2017-01-05] MEDS ORDERED: PNEUMOCOCCAL POLYVALENT INJ 25 MCG/0.5 ML SYR IM ONE (09:00)
--- NOTE | 2017-01-05 09:36 | EKG ---
Date Performed: 01/04/2017 Time Performed: 20:34:47 PTAGE: 76 years EKG: ATRIAL FIBRILLATION MARKED LEFT AXIS DEVIATION INCOMPLETE RIGHT BUNDLE BRANCH BLOCK NONSPEC IFIC ST & T-WAVE ABNORMALITY ABNORMAL ECG PREVIOUS TRACING : 01/04/2017 13.58 DOCTOR: Inderjit Bach Interpretating Date/Time 01/05/2017 09:35:17
--- NOTE | 2017-01-05 10:01 | EKG ---
Date Performed: 01/04/2017 Time Performed: 13:58:23 PTAGE: 76 years EKG: ATRIAL FIBRILLATION MARKED LEFT AXIS DEVIATION INCOMPLETE RIGHT BUNDLE BRANCH BLOCK NONSPEC IFIC ST & T-WAVE ABNORMALITY ABNORMAL ECG PREVIOUS TRACING : 01/04/2017 07.29 DOCTOR: Inderjit Bach Interpretating Date/Time 01/05/2017 09:59:13
--- NOTE | 2017-01-05 10:39 | HHI.HP ---
[facility] Primary Care Physician Harsha Hodge MD Admission Diagnosis Atrial fibrillation RVR. Diagnoses: Chief Complaint: Shortness of breath Travel History International Travel<30 Days: No Contact w/Intl Traveler <30 Da: No Traveled to Known Affected Are: No History of Present Illness This is a 68-year-old male with history of A. fib, hypertension, hyperlipidemia and anxiety. He presented to the emergency department complaining of dyspnea on exertion associated with weakness and sensation of anterior neck tightness. Denies chest pain, palpitations, nausea, vomiting and focal weakness. Patient was found to be in A. fib RVR. This is his third ER visit in the past 9 days for the same complaint. His student officer recommended admission for ablation. Patient also complained after receiving pneumonia shot pain in his bilateral hips and upper anterior chest. Denies any other complaints. All other systems reviewed negative. Negative stress tests over a year ago Review of Systems Constitutional: DENIES: Diaphoretic episodes, Fatigue, Fever, Weight gain, Weight loss, Chills, Dizziness, Change in appetite, Night Sweats Endocrine: DENIES: Heat/cold intolerance, Polydipsia, Polyuria, Polyphagia Eyes: DENIES: Blurred vision, Diplopia, Vision loss, Photosensitivity Ears, nose, mouth, throat: DENIES: Tinnitus, Vertigo, Throat pain, Hoarseness, Epistaxis, Odynophagia Respiratory: DENIES: Cough, Wheezing, Hemoptysis, Sputum production, Shortness of breath Cardiovascular: DENIES: Chest pain, Palpitations, Syncope, Dyspnea on Exertion , PND, Lower Extremity Edema, Orthopnea, Claudication Gastrointestinal: DENIES: Abdominal pain, Black stools, Bloody stools, Constipation, Diarrhea, Nausea, Vomiting, Difficulty Swallowing, Anorexia Genitourinary: DENIES: Urinary frequency, Urinary incontinence, Urgency, Hematuria, Dysuria, Nocturia, Penile Discharge Integumentary: DENIES: Rash Neurologic: DENIES: Headache, Localized weakness, Seizures, Tremor, Poor Balance Psychiatric: DENIES: Anxiety, Confusion, Depression, Hallucinations, Agitation , Suicidal Ideation, Homicidal Ideation, Delusions Past Family Social History Past Medical History As previously mentioned. Also has heartburn. Past Surgical History Hernia surgery. Kidney stone surgery Reported Medications Diltiazem ER 24 HR 240 Mg Amanda 240 Mg PO DAILY Digoxin 0.125 Mg Tab 0.125 Mg PO DAILY Tamsulosin (Tamsulosin HCl) 0.4 Mg Cap 0.4 Mg PO HS Metoprolol Succinate ER 24 HR (Metoprolol Succinate) 100 Mg Tab 100 Mg PO BID Warfarin 1 Mg Tab 1.5 Mg PO DAILY Tamsulosin (Tamsulosin HCl) 0.4 Mg Cap 0.4 Mg PO HS Omeprazole 20 Mg Tab 20 Mg PO DAILY Hydrochlorothiazide 12.5 Mg Tab 12.5 Mg PO DAILY Vitamin B-12 (Cyanocobalamin) 250 Mcg Lozg 250 Mcg BUCCAL DAILY Lipitor (Atorvastatin Calcium) 40 Mg Tab 40 Mg PO HS Allergies: Coded Allergies: No Known Allergies (Unverified Allergy, Unknown, 01/04/17) Family History Denies heart disease Social History Occasional alcohol use but does not smoke Physical Exam Vital Signs Vital Signs Date Time Temp Pulse Resp B/P (MAP) Pulse Ox O2 Delivery O2 Flow Rate FiO2 01/05/17 08:00 97.8 60 18 143/81 (101) 96 01/05/17 08:00 Room Air 01/05/17 04:29 Room Air 01/05/17 04:00 98.1 78 20 125/66 (85) 94 01/05/17 03:18 56 01/05/17 00:00 97.8 58 20 110/76 (87) 93 01/04/17 20:45 Room Air 01/04/17 20:00 98.2 73 19 139/92 (108) 96 01/04/17 20:00 82 01/04/17 16:58 Room Air 01/04/17 16:00 97.3 79 21 149/84 (105) 94 01/04/17 13:49 119 01/04/17 12:28 97.4 60 20 154/115 (128) 97 01/04/17 11:13 Physical Exam GENERAL: This is a well-nourished, well-developed patient, in distress due to pain SKIN: No rashes, ecchymoses or lesions. Cool and dry. HEAD: Atraumatic. Normocephalic. No temporal or scalp tenderness. EYES: Pupils equal round and reactive. Extraocular motions intact. No scleral icterus. No injection or drainage. ENT: Nose without bleeding, purulent drainage or septal hematoma. Throat without erythema, tonsillar hypertrophy or exudate. Uvula midline. Airway patent. NECK: Trachea midline. + JVD. No lymphadenopathy. Supple, nontender, no meningeal signs. CARDIOVASCULAR: Irregularly irregular. No chest wall tenderness RESPIRATORY: Clear to auscultation. Decreased Breath sounds equal bilaterally. No wheezes, rales, or rhonchi. GASTROINTESTINAL: Abdomen soft, non-tender, nondistended. No guarding. MUSCULOSKELETAL: Extremities without clubbing, cyanosis, or edema. No joint tenderness, effusion, or edema noted. No calf tenderness. Negative Homans sign bilaterally. NEUROLOGICAL: Awake and alert. Cranial nerves II through XII intact. Motor and sensory grossly within normal limits. Five out of 5 muscle strength in all muscle groups. Normal speech. Laboratory Laboratory Tests Test 01/04/17 14:31 01/04/17 20:42 01/05/17 05:33 Total Creatine Kinase 79 73 Troponin I LESS THAN 0.02 LESS THAN 0.02 White Blood Count 4.4 Red Blood Count 4.43 Hemoglobin 14.7 Hematocrit 42.4 Mean Corpuscular Volume 95.6 Mean Corpuscular Hemoglobin 33.0 Mean Corpuscular Hemoglobin Concent 34.6 Red Cell Distribution Width 13.5 Platelet Count 131 Mean Platelet Volume 9.2 Neutrophils (%) (Auto) 73.2 Lymphocytes (%) (Auto) 9.8 Monocytes (%) (Auto) 13.2 Eosinophils (%) (Auto) 3.3 Basophils (%) (Auto) 0.5 Neutrophils # (Auto) 3.2 Lymphocytes # (Auto) 0.4 Monocytes # (Auto) 0.6 Eosinophils # (Auto) 0.1 Basophils # (Auto) 0.0 CBC Comment DIFF FINAL Differential Comment Blood Urea Nitrogen 25 Creatinine 0.93 Random Glucose 111 Total Protein 6.0 Albumin 3.2 Calcium Level 8.4 Alkaline Phosphatase 71 Aspartate Amino Transf (AST/SGOT) 22 Alanine Aminotransferase (ALT/SGPT) 46 Total Bilirubin 1.3 Sodium Level 142 Potassium Level 3.5 Chloride Level 107 Carbon Dioxide Level 26.7 Anion Gap 8 Estimat Glomerular Filtration Rate 79 Result Diagram: 11/22/17 0533 11/22/17 0533 Imaging Last Impressions Chest X-Ray 01/04/17 0744 Signed Impressions: Service Date/Time: Wednesday, January 04, 2017 08:03 - CONCLUSION: 1. Improved aeration in the medial left lower lung zone. 2. Otherwise, no significant change or new acute abnormality MD Clarissa Arboleda VTE Risk Assessment Clarissa VTE Risk Assessment: Mod/High Risk (score >= 2) Caprini Risk Assessment Model Point Value = 1 Point Value = 2 Point Value = 3 Point Value = 5 Age 41-60 Minor surgery BMI > 25 kg/m2 Swollen legs Varicose veins or History of unexplained or recurrent spontaneous Oral contraceptives or hormone replacement Sepsis (< 1 month) Serious lung disease, including pneumonia (< 1 month) Abnormal pulmonary function Acute myocardial infarction Congestive heart failure (< 1 month) History of inflammatory bowel disease Medical patient at bed rest Age 61-74 Arthroscopic surgery Major open surgery (> 45 min) Laparoscopic surgery (> 45 min) Malignancy Confined to bed (> 72 hours) Immobilizing plaster cast Central venous access Age >= 75 History of VTE Family history of VTE Factor V Leiden Prothrombin [id number] Lupus anticoagulant Anticardiolipin antibodies Elevated serum homocysteine Heparin-induced thrombocytopenia Other congenital or acquired thrombophilia Stroke (< 1 month) Elective arthroplasty Hip, pelvis, or leg fracture Acute spinal cord injury (< 1 month) Prophylaxis Regimen Total Risk Factor Score Risk Level Prophylaxis Regimen 0-1 Low Early ambulation 2 Moderate Order ONE of the following: *Sequential Compression Device (SCD) *Heparin 5000 units SQ BID 3-4 Higher Order ONE of the following medications: *Heparin 5000 units SQ TID *Enoxaparin/Lovenox 40 mg SQ daily (WT < 150 kg, CrCl > 30 mL/min) *Enoxaparin/Lovenox 30 mg SQ daily (WT < 150 kg, CrCl > 10-29 mL/min) *Enoxaparin/Lovenox 30 mg SQ BID (WT < 150 kg, CrCl > 30 mL/min) AND/OR *Sequential Compression Device (SCD) 5 or more Highest Order ONE of the following medications: *Heparin 5000 units SQ TID (Preferred with Epidurals) *Enoxaparin/Lovenox 40 mg SQ daily (WT < 150 kg, CrCl > 30 mL/min) *Enoxaparin/Lovenox 30 mg SQ daily (WT < 150 kg, CrCl > 10-29 mL/min) *Enoxaparin/Lovenox 30 mg SQ BID (WT < 150 kg, CrCl > 30 mL/min) AND *Sequential Compression Device (SCD) Assessment and Plan Problem List: (1) Atrial fibrillation with rapid ventricular response ICD Code: I48.91 - Unspecified atrial fibrillation Status: Acute Assessment and Plan This is a 68-year-old male with history of A. fib, hypertension, hyperlipidemia and anxiety. He presented to the emergency department complaining of dyspnea on exertion associated with weakness and sensation of anterior neck tightness. Denies chest pain, palpitations, nausea, vomiting and focal weakness. Patient was found to be in A. fib RVR. This is his third ER visit in the past 9 days for the same complaint. His student officer recommended admission for ablation. Patient also complained after receiving pneumonia shot pain in his bilateral hips and upper anterior chest. Denies any other complaints. Negative stress tests over a year ago A. fib currently in controlled ventricular response. Continue dig, Cardizem, metoprolol and monitor on telemetry. Restart anticoagulation with Coumadin if okay with cardiology. Await recommendations from cardiology. Check TSH and cardiac enzymes New onset CHF 2/2 RVR. Has JVD and elevated BNP. CHF education, I/O and monitor wt. May need echocardiogram Hyperglycemia. Obtain A1c Possible adverse reaction from pneumonia shot. Continue to monitor DVT prophylaxis with SCD and early ambulation. Patient also on Coumadin Discussed Condition With Patient Dirk Guzman MD Jan 05, 2017 10:39
[2017-01-05 10:58] LABS: MAGNESIUM 1.5 MG/DL (1.5-2.5)
[2017-01-05] MEDS: DIGOXIN 0.125 MG TAB PO SCH (12:19)
[2017-01-05] MEDS: METOPROLOL SUCCINATE 50 MG EXTENDED RELEASE TAB PO SCH ×2 (12:20→21:00)
[2017-01-05] MEDS: DILTIAZEM-CD 240 MG CAP ER PO SCH (12:20)
[2017-01-05] MEDS: HYDROCHLOROTHIAZIDE 12.5 MG CAP PO SCH (12:20)
[2017-01-05] MEDS: PANTOPRAZOLE SOD 20 MG DELAYED RELEASE TAB PO SCH (12:21)
[2017-01-05] MEDS: SODIUM CHLORIDE 0.9% FLUSH 10 ML FLUSH IV FLUSH SCH ×2 (12:21→20:50)
[2017-01-05] MEDS: LISINOPRIL 10 MG TAB PO SCH (12:21)
[2017-01-05 12:49] LABS: HEMOGLOBIN A1a 1.1 %; HEMOGLOBIN Ao 84.6 %; HEMOGLOBIN LA1C 2.1 %
[2017-01-05] MEDS ORDERED: hydrOXYzine PAMOATE 25 MG CAP PO PRN (13:00)
[2017-01-05] MEDS ORDERED: DILTIAZEM INJ 125 MG in SODIUM CHLORIDE 0.9% INJ 100 ML IV PRN (13:00)
[2017-01-05] MEDS ORDERED: ENALAPRILAT 1.25 MG/ML VIAL IV PUSH PRN (13:45)
[2017-01-05] MEDS ORDERED: cloNIDine HCL 0.1 MG TAB PO PRN (13:45)
[2017-01-05 15:40] LABS: PROTHROMBIN TIME - PATIENT 22.9 SEC (9.8-11.6)
[2017-01-05 16:04] LABS: CREATINE KINASE 121 U/L (39-308)
[2017-01-05] MEDS: ATORVASTATIN 40 MG TAB PO SCH (20:50)
[2017-01-05] MEDS: TAMSULOSIN HCL 0.4 MG CAP PO SCH (20:50)
[2017-01-06] VITALS (7 sets, daily range): BP systolic 96–145; BP diastolic 57–78; PULSE 45–77; RESP 18–20; TEMP 97.3–98.5; O2SAT 94–98
[2017-01-06 07:22] LABS: INTERNATIONAL NORMALIZED RATIO 1.7 RATIO; PROTHROMBIN TIME - PATIENT 19.3 SEC (9.8-11.6)
[2017-01-06] MEDS: METOPROLOL SUCCINATE 50 MG EXTENDED RELEASE TAB PO SCH ×2 (08:57→20:37)
[2017-01-06] MEDS: HYDROCHLOROTHIAZIDE 12.5 MG CAP PO SCH (08:57)
[2017-01-06] MEDS: PANTOPRAZOLE SOD 20 MG DELAYED RELEASE TAB PO SCH (08:57)
[2017-01-06] MEDS: DILTIAZEM-CD 240 MG CAP ER PO SCH (08:57)
[2017-01-06] MEDS: LISINOPRIL 10 MG TAB PO SCH (08:57)
[2017-01-06] MEDS: DIGOXIN 0.125 MG TAB PO SCH (08:57)
[2017-01-06] MEDS: SODIUM CHLORIDE 0.9% FLUSH 10 ML FLUSH IV FLUSH SCH ×2 (08:58→20:35)
--- NOTE | 2017-01-06 10:47 | EKG ---
Date Performed: 01/05/2017 Time Performed: 13:07:18 PTAGE: 76 years EKG: Atrial fibrillation Possible left anterior fascicular block Incomplete RBBB Extensive ST-T changes are nonspecific Abnormal ECG PREVIOUS TRACING : 01/04/2017 20.34 DOCTOR: Trace Perez Interpretating Date/Time 01/06/2017 10:45:43
[2017-01-06] MEDS: ENOXAPARIN SODIUM 80 MG/0.8 ML SYRINGE SQ SCH ×2 (12:32→23:29)
[2017-01-06] MEDS: ACETAMINOPHEN 325 MG TAB PO PRN (13:55)
--- NOTE | 2017-01-06 14:52 | HHI.PR ---
Subjective Remarks Follow-up atrial fibrillation. Denies palpitations, shortness of breath, nausea and vomiting. Improving achiness of both shoulders. Discussed with RN, cardiology still has not seen the patient. Consult has been received and confirmed by [facility] Objective Vitals Vital Signs Date Time Temp Pulse Resp B/P (MAP) Pulse Ox O2 Delivery O2 Flow Rate FiO2 01/06/17 12:15 67 01/06/17 12:00 97.8 73 20 145/75 (98) 95 01/06/17 08:00 98.5 77 20 143/78 (99) 97 01/06/17 07:45 Nasal Cannula 2.00 01/06/17 04:00 97.3 59 18 130/76 (94) 94 01/06/17 00:00 Room Air 01/06/17 00:00 97.4 59 19 120/67 (84) 98 01/05/17 20:05 48 01/05/17 20:00 Room Air 01/05/17 20:00 97.3 58 19 98/60 (73) 94 01/05/17 16:00 97.7 84 18 139/89 (106) 94 I/O 01/05/17 01/05/17 01/05/17 01/06/17 01/06/17 01/06/17 07:00 15:00 23:00 07:00 15:00 23:00 Intake Total 400 ml 400 ml Output Total 750 ml 700 ml Balance -350 ml -300 ml Intake Oral 400 ml 400 ml Output Urine Total 750 ml 700 ml # Voids 1 # Bowel Movements 1 0 Result Diagram: 01/05/17 0533 01/05/17 0533 Imaging Last Impressions Chest X-Ray 01/04/17 0744 Signed Impressions: Service Date/Time: Wednesday, January 04, 2017 08:03 - CONCLUSION: 1. Improved aeration in the medial left lower lung zone. 2. Otherwise, no significant change or new acute abnormality Joshua Adan MD Objective Remarks GENERAL: This is a well-nourished, well-developed patient, in no distress SKIN: No rashes, ecchymoses or lesions. Cool and dry. CARDIOVASCULAR: Irregularly irregular. No chest wall tenderness RESPIRATORY: Clear to auscultation. Decreased Breath sounds equal bilaterally. No wheezes, rales, or rhonchi. GASTROINTESTINAL: Abdomen soft, non-tender, nondistended. No guarding. MUSCULOSKELETAL: Extremities without clubbing, cyanosis, or edema. No joint tenderness, effusion, or edema noted. No calf tenderness. Negative Homans sign bilaterally. NEUROLOGICAL: Awake and alert. Cranial nerves II through XII intact. Motor and sensory grossly within normal limits. Five out of 5 muscle strength in all muscle groups. Normal speech. Procedures none A/P Problem List: (1) Atrial fibrillation with rapid ventricular response ICD Code: I48.91 - Unspecified atrial fibrillation Status: Acute Assessment and Plan This is a 68-year-old male with history of A. fib, hypertension, hyperlipidemia and anxiety. He presented to the emergency department complaining of dyspnea on exertion associated with weakness and sensation of anterior neck tightness. Denies chest pain, palpitations, nausea, vomiting and focal weakness. Patient was found to be in A. fib RVR. This is his third ER visit in the past 9 days for the same complaint. His parole hearing officer recommended admission for ablation. Patient also complained after receiving pneumonia shot pain in his bilateral hips and upper anterior chest. Denies any other complaints. Negative stress tests over a year ago A. fib currently in controlled ventricular response. TSH and cardiac enzymes unremarkable. Dig, Cardizem, metoprolol and monitor on telemetry. Restart anticoagulation with Coumadin if okay with cardiology. Subcutaneous Lovenox while INR subtherapeutic. Await recommendations from cardiology. New onset CHF 2/2 RVR. Has JVD and elevated BNP. CHF education, I/O and monitor wt. May need echocardiogram. Stable Hyperglycemia. A1c 6.2. Diabetic education Possible adverse reaction from pneumonia shot. Stable Continue to monitor DVT prophylaxis with SCD and early ambulation. Lovenox Discharge Planning Discharge planning per cardiology Dirk Guzman MD Jan 06, 2017 14:52
--- NOTE | 2017-01-06 17:55 | PD.CONS ---
HPI Consult Requested By Primary Care Physician Harsha Hodge MD History of Present Illness 68-year-old male with history of A. fib on OAC, hypertension, hyperlipidemia, CVA/TIA and anxiety. He presented to the emergency department complaining of dyspnea on exertion associated with fluttering sensation in the chest. Denies chest pain, palpitations, nausea, vomiting and focal weakness. Patient was found to be in A. fib RVR. This is his third ER visit in the past 9 days for the same complaint. He is schedule to see Dr. Kong for Afib ablation. Negative stress tests over a year ago. He reports being compliant with medication therapy. Review of Systems Consitutional: DENIES: Fatigue, Fever, Chills, Weight gain, Weight loss Eyes: DENIES: Amaurosis Fugax, Change in vision HEENT: DENIES: Lightheadedness, Change in hearing Respiratory: DENIES: See HPI, Cough, Snoring, Shortness of breath, Wheezing, Sputum production Cardiovascular: COMPLAINS OF: See HPI, Palpitations, DENIES: Chest pain, Syncope, Tachycardia Gastrointestinal: DENIES: Nausea, Vomiting, Change in bowel habits, Reflux, Bloody stools, Melena Genitourinary: DENIES: Urinary incontinence, Difficulty voiding Integumentary: DENIES: Rash Neurologic: DENIES: Tingling or numbness, Memory problems, Poor Balance, Stroke symptoms Musculoskeletal: DENIES: Joint pain, Muscle pain, Limited range of motion, Back pain Psychiatric: DENIES: Anxiety, Depression, Sleep disturbances Hematologic: DENIES: Bruising tendencies, Bleeding tendencies Endocrine: DENIES: Weight gain, Weight loss, Thyroid disease Past Family Social History Allergies: Coded Allergies: No Known Allergies (Unverified Allergy, Unknown, 01/04/17) Past Medical History As previously mentioned. Past Surgical History Hernia surgery. Kidney stone surgery Reported Medications Reported Meds & Active Scripts Active Lisinopril 10 Mg Tab 10 Mg PO DAILY Reported Diltiazem ER 24 HR 240 Mg Amanda 240 Mg PO DAILY Digoxin 0.125 Mg Tab 0.125 Mg PO DAILY Tamsulosin (Tamsulosin HCl) 0.4 Mg Cap 0.4 Mg PO HS Metoprolol Succinate ER 24 HR (Metoprolol Succinate) 100 Mg Tab 100 Mg PO BID Warfarin 1 Mg Tab 1.5 Mg PO DAILY Tamsulosin (Tamsulosin HCl) 0.4 Mg Cap 0.4 Mg PO HS Omeprazole 20 Mg Tab 20 Mg PO DAILY Hydrochlorothiazide 12.5 Mg Tab 12.5 Mg PO DAILY Vitamin B-12 (Cyanocobalamin) 250 Mcg Lozg 250 Mcg BUCCAL DAILY Lipitor (Atorvastatin Calcium) 40 Mg Tab 40 Mg PO HS Active Ordered Medications Current Medications Medications (Trade) Dose Ordered Sig/Makenna Route Start Time Stop Time Status Last Admin (Lipitor) 40 mg HS PO 01/04/17 21:00 01/05/17 20:50 (Lanoxin) 0.125 mg DAILY PO 01/05/17 09:00 01/06/17 08:57 (Cardizem Cd) 240 mg DAILY PO 01/05/17 09:00 01/06/17 08:57 (Flomax) 0.4 mg HS PO 01/04/17 21:00 01/05/17 20:50 (Toprol Xl) 100 mg BID PO 01/04/17 21:00 01/06/17 08:57 (Protonix) 20 mg DAILY PO 01/05/17 09:00 01/06/17 08:57 (NS Flush) 2 ml UNSCH PRN IV FLUSH 01/04/17 11:30 (NS Flush) 2 ml BID IV FLUSH 01/04/17 21:00 01/06/17 08:58 (Tylenol) 650 mg Q4H PRN PO 01/04/17 11:30 (Zofran Inj) 4 mg Q6H PRN IVP 01/04/17 11:30 (Tylenol) 650 mg Q6H PRN PO 01/04/17 11:30 01/06/17 13:55 ([place] 5-325 Mg) 1 tab Q4H PRN PO 01/04/17 11:30 (Narcan Inj) 0.4 mg UNSCH PRN IV PUSH 01/04/17 11:30 (Milk Of Magnesia Liq) 30 ml Q12H PRN PO 01/04/17 11:30 (Duoneb Neb) 1 ampule Q2HR NEB PRN NEB 01/04/17 11:30 (Microzide) 12.5 mg DAILY PO 01/05/17 09:00 01/06/17 08:57 (Prinivil) 10 mg DAILY PO 01/05/17 09:00 01/06/17 08:57 (Vistaril) 25 mg Q6H PRN PO 01/05/17 13:00 Diltiazem HCl 125 mg/Sodium Chloride 125 ml @ 5 mls/hr TITRATE PRN IV 01/05/17 13:00 (Vasotec Inj) 1.25 mg Q6H PRN IV PUSH 01/05/17 13:45 (Catapres) 0.1 mg Q6H PRN PO 01/05/17 13:45 (Lovenox Inj) 80 mg Q12H SQ 01/06/17 12:00 01/06/17 12:32 Family History Denies heart disease Social History Occasional alcohol use but does not smoke Physical Exam Vital Signs Vital Signs Date Time Temp Pulse Resp B/P (MAP) Pulse Ox O2 Delivery O2 Flow Rate FiO2 01/06/17 16:00 97.8 45 20 96/57 (70) 96 01/06/17 12:15 67 01/06/17 12:00 97.8 73 20 145/75 (98) 95 01/06/17 08:00 98.5 77 20 143/78 (99) 97 01/06/17 07:45 Nasal Cannula 2.00 01/06/17 04:00 97.3 59 18 130/76 (94) 94 01/06/17 00:00 Room Air 01/06/17 00:00 97.4 59 19 120/67 (84) 98 01/05/17 20:05 48 01/05/17 20:00 Room Air 01/05/17 20:00 97.3 58 19 98/60 (73) 94 Physical Exam GENERAL: Well-nourished, well-developed patient. SKIN: Warm and dry. HEAD: Normocephalic. EYES: No scleral icterus. No injection or drainage. NECK: Supple, trachea midline. No JVD or lymphadenopathy. CARDIOVASCULAR:irr irr without murmurs, gallops, or rubs. RESPIRATORY: Breath sounds equal bilaterally. No accessory muscle use. GASTROINTESTINAL: Abdomen soft, non-tender, nondistended. EXTREMITIES: No cyanosis, or edema. NEUROLOGICAL: Awake, alert, and oriented x 3. Non-focal. Laboratory Laboratory Tests Test 01/06/17 06:10 Prothrombin Time 19.3 Prothromb Time International Ratio 1.7 Result Diagram: 01/05/1753201/05/17532 Imaging Last Impressions Chest X-Ray 01/04/17 0744 Signed Impressions: Service Date/Time: Wednesday, January 04, 2017 08:03 - CONCLUSION: 1. Improved aeration in the medial left lower lung zone. 2. Otherwise, no significant change or new acute abnormality Joshua Adan MD Assessment and Plan Problem List: (1) Atrial fibrillation with rapid ventricular response ICD Codes: I48.91 - Unspecified atrial fibrillation Status: Acute Plan: 76 y/o M with known Afib admitted with Afib with RVR which is now resolved. Now having slow afib and low BP. Asymptomatic, ambulating without difficulty dnies CV complaints. He is on BB, CCB, digoxin, ACEi and HCTZ. It is unclear why the patient's atrial fibrillation was rapid as he says he was taking all of his medications. His BP low so I will cut on his ACEi and hold the HCTZ give room for AV blocking agents. Unfortunately Dr. Kong is wont be back until Tuesday, thus if he can ambulate and if his heart rate is controlled he can be d/c home to follow up with Dr. Mckeon and Dr. Kong as an outpatient. Recommendations: 1. Cont rate control 2. Cont OAC 3. Decrease Lisinopril to 5mg PO daily 4. Hold HCTZ 5. If he can ambulate and if his heart rate is controlled he can be d/c home to follow up with Dr. Mckeon and Dr. Kong as an outpatient. Thank you again for the opportunity to participate this patient's care. Trace Perez MD Jan 06, 2017 17:55
[2017-01-06] MEDS: TAMSULOSIN HCL 0.4 MG CAP PO SCH (20:34)
[2017-01-06] MEDS: ATORVASTATIN 40 MG TAB PO SCH (20:35)
[2017-01-07] VITALS: BP 117/70; PULSE 66; RESP 16; TEMP 97.8; O2SAT 97
[2017-01-07 04:00] VITALS: BP 125/84; PULSE 64; RESP 18; TEMP 98.5; O2SAT 94
[2017-01-07 08:09] VITALS: PULSE 75
--- NOTE | 2017-01-07 08:54 | HHI.FF ---
Face to Face Verification Diagnosis: (1) Atrial fibrillation with rapid ventricular response Home Health Nursing Order: Medical education Medication education-adverse effect Nursing assessment with vital signs I have seen patient Perfecto Johnson Jr Fady on 01/07/17. My clinical findings support the need for the requested home health care services because: Deconditioned w/ increased weakness I certify that my clinical findings support that this patient is homebound because: Poor cardiac reserve Dirk Guzman MD Jan 07, 2017 08:54
[2017-01-07] MEDS ORDERED: LISINOPRIL 10 MG TAB PO SCH (09:00)
[2017-01-07] MEDS: PANTOPRAZOLE SOD 20 MG DELAYED RELEASE TAB PO SCH (09:01)
[2017-01-07] MEDS: SODIUM CHLORIDE 0.9% FLUSH 10 ML FLUSH IV FLUSH SCH (09:02)
[2017-01-07] MEDS: DILTIAZEM-CD 240 MG CAP ER PO SCH (09:02)
[2017-01-07] MEDS: DIGOXIN 0.125 MG TAB PO SCH (09:02)
[2017-01-07] MEDS: METOPROLOL SUCCINATE 50 MG EXTENDED RELEASE TAB PO SCH (09:03)
[2017-01-07 11:26] LABS: INTERNATIONAL NORMALIZED RATIO 1.6 RATIO; PROTHROMBIN TIME - PATIENT 18.5 SEC (9.8-11.6)
[2017-01-07] MEDS: ENOXAPARIN SODIUM 80 MG/0.8 ML SYRINGE SQ SCH (12:17)
[2017-01-07] MEDS ORDERED: ENOX80P SQ (12:30)
[2017-01-07] MEDS ORDERED: LISI10TA3 PO (13:29)
--- NOTE | 2017-01-07 13:33 | HHI.DS ---
Discharge Summary Admission Date Jan 04, 2017 at 10:10 Discharge Date: Jan 07, 2017 Admitting Diagnosis Atrial fibrillation RVR. (1) Atrial fibrillation with rapid ventricular response ICD Code: I48.91 - Unspecified atrial fibrillation Diagnosis: Principal Status: Acute Procedures none Brief History - From Admission This is a 68-year-old male with history of A. fib, hypertension, hyperlipidemia and anxiety. He presented to the emergency department complaining of dyspnea on exertion associated with weakness and sensation of anterior neck tightness. Denies chest pain, palpitations, nausea, vomiting and focal weakness. Patient was found to be in A. fib RVR. This is his third ER visit in the past 9 days for the same complaint. His forest aide recommended admission for ablation. Patient also complained after receiving pneumonia shot pain in his bilateral hips and upper anterior chest. Denies any other complaints. All other systems reviewed negative. Negative stress tests over a year ago CBC/BMP: 01/05/17 0533 01/05/17 0533 Significant Findings Laboratory Tests Test 01/04/17 14:31 01/04/17 20:42 01/05/17 05:33 01/05/17 14:55 Troponin I LESS THAN 0.02 NG/ML LESS THAN 0.02 NG/ML LESS THAN 0.02 NG/ML Red Blood Count 4.43 MIL/MM3 (4.50-5.90) Platelet Count 131 TH/MM3 (150-450) Neutrophils (%) (Auto) 73.2 % (16.0-70.0) Monocytes (%) (Auto) 13.2 % (0.0-8.0) Lymphocytes # (Auto) 0.4 TH/MM3 (1.0-4.8) Blood Urea Nitrogen 25 MG/DL (7-18) Random Glucose 111 MG/DL (74-106) Total Protein 6.0 GM/DL (6.4-8.2) Albumin 3.2 GM/DL (3.4-5.0) Calcium Level 8.4 MG/DL (8.5-10.1) Total Bilirubin 1.3 MG/DL (0.2-1.0) Estimat Glomerular Filtration Rate 79 ML/MIN (>89) Hemoglobin A1c 6.2 % (4.3-6.0) Prothrombin Time 22.9 SEC (9.8-11.6) Test 01/06/17 06:10 01/07/17 11:00 Prothrombin Time 19.3 SEC (9.8-11.6) 18.5 SEC (9.8-11.6) Imaging Last Impressions Chest X-Ray 01/04/17 0744 Signed Impressions: Service Date/Time: Wednesday, January 04, 2017 08:03 - CONCLUSION: 1. Improved aeration in the medial left lower lung zone. 2. Otherwise, no significant change or new acute abnormality Joshua Adan MD PE at Discharge GENERAL: This is a well-nourished, well-developed patient, in no distress SKIN: No rashes, ecchymoses or lesions. Cool and dry. CARDIOVASCULAR: Irregularly irregular. No chest wall tenderness RESPIRATORY: Clear to auscultation. Decreased Breath sounds equal bilaterally. No wheezes, rales, or rhonchi. GASTROINTESTINAL: Abdomen soft, non-tender, nondistended. No guarding. MUSCULOSKELETAL: Extremities without clubbing, cyanosis, or edema. No joint tenderness, effusion, or edema noted. No calf tenderness. Negative Homans sign bilaterally. NEUROLOGICAL: Awake and alert. Cranial nerves II through XII intact. Motor and sensory grossly within normal limits. Five out of 5 muscle strength in all muscle groups. Normal speech. Hospital Course This is a 68-year-old male with history of A. fib, hypertension, hyperlipidemia and anxiety. He presented to the emergency department complaining of dyspnea on exertion associated with weakness and sensation of anterior neck tightness. Denies chest pain, palpitations, nausea, vomiting and focal weakness. Patient was found to be in A. fib RVR. This is his third ER visit in the past 9 days for the same complaint. His forest aide recommended admission for ablation. Patient also complained after receiving pneumonia shot pain in his bilateral hips and upper anterior chest. Denies any other complaints. Negative stress tests over a year ago A. fib currently in controlled ventricular response. TSH and cardiac enzymes unremarkable. Stable continue Dig, Cardizem, metoprolol and monitor on telemetry. Restart anticoagulation with Coumadin and continue subcutaneous Lovenox while INR subtherapeutic. Per cardiology, if hemodynamically stable. Patient can be discharged home with outpatient follow-up with Dr. Kong who is not able to do ablation until next week New onset CHF 2/2 RVR. Has JVD and elevated BNP. Stable. CHF education, I/O and monitor wt. May need echocardiogram outpatient Hyperglycemia. A1c 6.2. Diabetic education Possible adverse reaction from pneumonia shot. Stable Continue to monitor DVT prophylaxis with SCD and early ambulation. Lovenox Pt Condition on Discharge: Stable Discharge Disposition: Disch w/ Home Health Serv Discharge Time: > 30 minutes Discharge Instructions DIET: Follow Instructions for: Heart Healthy Diet Activities you can perform: Regular-No Restrictions Activities to Avoid: Driving Follow up Referrals: Cardiology - 1 Week with Saturnino Fajardo MD Cardiology - 1 Week with King Kong MD PCP Follow-up - 2-3 Days New Medications: Enoxaparin Inj (Lovenox Inj) 80 mg/0.8 ML Syr 80 MG SQ Q12H for Prevent Blood Clot, #14 INJECTION dc when INR > 2 Lisinopril (Lisinopril) 10 Mg Tab 5 MG PO DAILY for Blood Pressure Management, #30 TAB Continued Medications: Atorvastatin (Lipitor) 40 Mg Tab 40 MG PO HS for Cholesterol Management, #30 TAB 0 Refills Cyanocobalamin (Vitamin B-12) 250 Mcg Lozg 250 MCG BUCCAL DAILY for Nutritional Supplement, #1 BOTTLE 0 Refills Digoxin (Digoxin) 0.125 Mg Tab 0.125 MG PO DAILY for Regulate Heart Beat, #30 TAB 0 Refills Diltiazem ER 24 HR (Diltiazem ER 24 HR) 240 Mg Amanda 240 MG PO DAILY, #30 TAB 0 Refills Metoprolol Succinate ER 24 HR (Metoprolol Succinate ER 24 HR) 100 Mg Tab 100 MG PO BID, #30 TAB 0 Refills Omeprazole (Omeprazole) 20 Mg Tab 20 MG PO DAILY, #30 TAB 0 Refills Tamsulosin (Tamsulosin) 0.4 Mg Cap 0.4 MG PO HS for Manage Prostate Problems, #30 CAP 0 Refills Warfarin (Warfarin) 1 Mg Tab 1.5 MG PO DAILY for Blood Clot Prevention, #30 TAB 0 Refills Discontinued Medications: Hydrochlorothiazide (Hydrochlorothiazide) 12.5 Mg Tab 12.5 MG PO DAILY, #30 TAB 0 Refills Lisinopril (Lisinopril) 10 Mg Tab 10 MG PO DAILY for Blood Pressure Management, #30 TAB Tamsulosin (Tamsulosin) 0.4 Mg Cap 0.4 MG PO HS for Manage Prostate Problems, #30 CAP 0 Refills Dirk Guzman MD Jan 07, 2017 13:33
[2017-01-07] MEDS ORDERED: WARFARIN SOD 1 MG TAB PO SCH (16:00)
[2017-01-07] MEDS ORDERED: ENOXAPARIN SODIUM 80 MG/0.8 ML SYRINGE SQ SCH (20:00)
== END 2017-01-07 19:35 | disposition home or self-care (01) ==
LOC: PHED 07:22 → PHEDA 10:10 → N04B 12:01
PROVIDERS: ADMIT Internal Medicine; ATTEND Internal Medicine
DX: I48.91 Unspecified atrial fibrillation (principal); R73.9 Hyperglycemia, unspecified; E78.5 Hyperlipidemia, unspecified; Z23 Encounter for immunization; Z86.73 Personal history of transient ischemic attack (TIA), and cerebral infarction without residual deficits; Z87.442 Personal history of urinary calculi; Z79.01 Long term (current) use of anticoagulants
CPT/HCPCS: 71010; 80053; 80162; 82550; 83036; 83735; 83880; 84443; 84484; 85025; 85610; 85730; 90732; 93005; 96372; 97161; 99285; G0378; G8987; G8988; G8989; J1650

== ENCOUNTER 2017-01-10 07:04 | Inpatient (IN) | payer OTHER, MEDICARE ==
[~2017-01-10] VITALS: Ht 172.7 cm; Wt 76.8 kg
[2017-01-10] VITALS (14 sets, daily range): BP systolic 129–161; BP diastolic 87–112; PULSE 69–128; RESP 18–20; TEMP 97.2–99.2; O2SAT 95–99
[~2017-01-10 07:04] MED LIST changes: +DIGO0.12 PO; +DILT1TAB4 PO; +ENOX80P SQ; -HYDR12.56 PO
--- NOTE | 2017-01-10 07:31 | PD ---
HPI Chief Complaint: Musculoskeletal Complaint Time Seen by Provider: 07:30 Travel History International Travel<30 days: No Contact w/Intl Traveler<30days: No Traveled to known affect area: No History of Present Illness HPI 76-year-old male came to the emergency room brought by his for excruciating right hip pain. Patient says that the pain started yesterday and since then he has been having difficult time ambulating or even laying comfortable. He seemed very uncomfortable. No history of fall or injury that he can recall. Patient has history of sciatica on the left side. Patient says that he was discharged home 3 days ago from the main hospital after being admitted for atrial fibrillation. He is supposed to have an ablation done by Dr. Kong that has not been scheduled. Patient is on Lovenox shots and Coumadin currently. Vital signs were relatively stable. Pain is worse when he tries to change his position. Patient has never had this kind of pain in the past. Patient also gives the history that prior to leaving the hospital he was given a "pneumonia shot"which after receiving his whole body instantly went numb. Patient says he's never had this kind of reaction to any shot before. He 's not sure if that has anything to do with this pain. [facility] Past Medical History Narrative Medical List of his past medical, surgical, social and family history is reviewed from the nursing note. Hx Anticoagulant Therapy: Yes Atrial Fibrillation: Yes Anxiety: Yes Depression: No Heart Rhythm Problems: Yes (HX OF AFIB ) Cancer: No Cardiovascular Problems: Yes (A. FIB., HTN, CHOL) High Cholesterol: Yes Cerebrovascular Accident: Yes (2011) Diabetes: No Diminished Hearing: No Endocrine: No Gastrointestinal Disorders: No Genitourinary: No Hypertension: Yes Immune Disorder: No Implanted Vascular Access Dvce: No Kidney Stones: Yes Musculoskeletal: No Neurologic: No Psychiatric: Yes Reproductive: No Respiratory: No Thyroid Disease: No Past Surgical History Genitourinary Surgery: Yes Pacemaker: No Other Surgery: Yes (HERNIA SX X3) Social History Alcohol Use: Yes (SOCIALLY) Tobacco Use: No Substance Use: No Allergies-Medications (Allergen,Severity, Reaction): Coded Allergies: pneumococcal vaccine (Verified Allergy, Severe, Numbness, 01/10/17) Comments List of his allergies reviewed from the nursing note. Reported Meds & Prescriptions Reported Meds & Active Scripts Active Lisinopril 10 Mg Tab 5 Mg PO DAILY Lovenox Inj (Enoxaparin Sodium) 80 mg/0.8 ML Syr 80 Mg SQ Q12H dc when INR > 2 Reported Diltiazem ER 24 HR 240 Mg Amanda 240 Mg PO DAILY Digoxin 0.125 Mg Tab 0.125 Mg PO DAILY Tamsulosin (Tamsulosin HCl) 0.4 Mg Cap 0.4 Mg PO HS Metoprolol Succinate ER 24 HR (Metoprolol Succinate) 100 Mg Tab 100 Mg PO BID Warfarin 1 Mg Tab 1.5 Mg PO DAILY Omeprazole 20 Mg Tab 20 Mg PO DAILY Vitamin B-12 (Cyanocobalamin) 250 Mcg Lozg 250 Mcg BUCCAL DAILY Lipitor (Atorvastatin Calcium) 40 Mg Tab 40 Mg PO HS Narrative Medication List of his home medications reviewed from the nursing note. Review of Systems Except as stated in HPI: all other systems reviewed are Neg Musculoskeletal: Positive: Pain Physical Exam Narrative GENERAL: Awake, alert, elderly, moderate to significant distress SKIN: Focused skin assessment warm/dry. HEAD: Atraumatic. Normocephalic. EYES: Pupils equal and round. No scleral icterus. No injection or drainage. ENT: No nasal bleeding or discharge. Mucous membranes pink and moist. NECK: Trachea midline. No JVD. CARDIOVASCULAR: Regular rate and rhythm. No murmur appreciated. RESPIRATORY: No accessory muscle use. Clear to auscultation. Breath sounds equal bilaterally. GASTROINTESTINAL: Abdomen soft, non-tender, nondistended. Hepatic and splenic margins not palpable. MUSCULOSKELETAL: No obvious deformities. No clubbing. No cyanosis. No edema. NEUROLOGICAL: Awake and alert. No obvious cranial nerve deficits. Motor grossly within normal limits. Normal speech. Decreased range of motion at the right hip joint due to the pain PSYCHIATRIC: Appropriate mood and affect; insight and judgment normal. Data Data Last Documented VS Vital Signs Date Time Temp Pulse Resp B/P (MAP) Pulse Ox O2 Delivery O2 Flow Rate FiO2 01/10/17 10:05 90 18 129/87 (101) 98 Room Air 01/10/17 07:17 97.2 Orders Orders Morphine Inj (Morphine Inj) (01/10/17 07:45) Ketorolac Inj (Toradol Inj) (01/10/17 07:45) Orphenadrine Inj (Norflex Inj) (01/10/17 07:45) Ondansetron Odt (Zofran Odt) (01/10/17 07:45) Basic Metabolic Panel (Bmp) (01/10/17 08:00) Prothrombin Time / Inr (Pt) (01/10/17 08:00) Ct Lumb Spine W/O Contrast (01/10/17 ) Ct Abd/Pel W Iv Contrast(Rout) (01/10/17 ) Iohexol 350 Inj (Omnipaque 350 Inj) (01/10/17 09:27) Complete Blood Count With Diff (01/10/17 09:43) Type And Screen (01/10/17 09:43) Admit Order (Ed Use Only) (01/10/17 10:49) Labs Laboratory Tests Test 01/10/17 08:00 White Blood Count 6.1 TH/MM3 Red Blood Count 4.54 MIL/MM3 Hemoglobin 14.6 GM/DL Hematocrit 43.8 % Mean Corpuscular Volume 96.5 FL Mean Corpuscular Hemoglobin 32.1 PG Mean Corpuscular Hemoglobin Concent 33.2 % Red Cell Distribution Width 12.4 % Platelet Count 138 TH/MM3 Mean Platelet Volume 10.2 FL Neutrophils (%) (Auto) 83.2 % Lymphocytes (%) (Auto) 6.7 % Monocytes (%) (Auto) 7.2 % Eosinophils (%) (Auto) 0.6 % Basophils (%) (Auto) 2.3 % Neutrophils # (Auto) 5.2 TH/MM3 Lymphocytes # (Auto) 0.4 TH/MM3 Monocytes # (Auto) 0.4 TH/MM3 Eosinophils # (Auto) 0.0 TH/MM3 Basophils # (Auto) 0.1 TH/MM3 CBC Comment AUTO DIFF Differential Comment AUTO DIFF CONFIRMED Platelet Estimate LOW Platelet Morphology Comment NORMAL Crenated Cell 2+ Prothrombin Time 21.3 SEC Prothromb Time International Ratio 1.9 RATIO Blood Urea Nitrogen 15 MG/DL Creatinine 0.93 MG/DL Random Glucose 135 MG/DL Calcium Level 8.9 MG/DL Sodium Level 139 MEQ/L Potassium Level 3.5 MEQ/L Chloride Level 106 MEQ/L Carbon Dioxide Level 22.6 MEQ/L Anion Gap 10 MEQ/L Estimat Glomerular Filtration Rate 79 ML/MIN MDM Medical Decision Making Medical Screen Exam Complete: Yes Emergency Medical Condition: Yes Medical Record Reviewed: Yes Differential Diagnosis Sciatica, hip fracture, hip strain Narrative Course 10:24 AM INR is subtherapeutic. Chemistry appears to be within normal limit. CT scan of the lumbar spine that was initially done to rule out lumbar radiculopathy was negative for lumbar radiculopathy but as per the radiologist it was psoas muscle hematoma. Based on this I ordered a CT scan of his abdomen and pelvis with IV contrast. I received a call back from Dr. Sandoval from radiology who alerted me about a large right psoas hematoma and slight free fluid in the pelvis. The patient and his informed about all these test results. Obviously having the anticoagulants on board is not helpful for the hematoma. I've also ordered a CBC to check his H&H. Patient will require admission. Awaiting to discuss this case with the administrative office specialist and hence the right Hospital for admission. I tried calling patient's own administrative office specialist Dr. Shah and it has been close to 40 minutes and I have not heard back yet. Currently trying for the on-call administrative office specialist. Meanwhile patient continues to be atrial fibrillation on the monitor but heart rate is between 70s to 80s. He was initially medicated for pain. I'll order some more pain medication. 10:46 AM I just discussed the case with Dr. Shah who called back and he wants the patient transferred to the [facility]. He agrees withholding the anticoagulant and anticipating a procedure like ablation in the near future. I will discuss this with the hospitalist and the patient will be transferred to the [facility]. Procedures EKG Prior to Arrival: No Physician Communication Physician Communication Dr. Shah Diagnosis Primary Impression: Psoas hematoma, right, secondary to anticoagulant therapy Qualified Codes: S30.1XXA - Contusion of abdominal wall, initial encounter Additional Impressions: Nontraumatic psoas hematoma Hip pain, acute Qualified Codes: M25.551 - Pain in right hip Atrial fibrillation Qualified Codes: I48.1 - Persistent atrial fibrillation Admitting Information Admitting Physician Requests: Dev Meehan MD Jan 10, 2017 07:31
[2017-01-10] MEDS ORDERED: ORPHENADRINE INJ 60 MG/2 ML AMP IM ONE (07:45)
[2017-01-10] MEDS ORDERED: KETOROLAC TROMETHAMINE 60 MG/2 ML (IM) VIAL IM ONE (07:45)
[2017-01-10] MEDS ORDERED: ONDANSETRON ODT 4 MG TAB PO ONE (07:45)
[2017-01-10] MEDS ORDERED: MORPHINE SULFATE 4 MG/ML INJ IM ONE (07:45)
[2017-01-10 08:36] LABS: POTASSIUM 3.5 MEQ/L (3.5-5.1)
[2017-01-10 08:39] LABS: BICARBONATE 22.6 MEQ/L (21.0-32.0); INTERNATIONAL NORMALIZED RATIO 1.9 RATIO; PROTHROMBIN TIME - PATIENT 21.3 SEC (9.8-11.6)
--- NOTE | 2017-01-10 08:54 | RADRPT ---
EXAM DATE/TIME: 01/10/2017 08:19 [place] COMPARISON: No previous studies available for comparison. INDICATIONS : Right lower back pain radiating to right hip. RADIATION DOSE: 30.16 CTDIvol (mGy) MEDICAL HISTORY : Cerebrovascular disease. Hypertension. Renal calculi. SURGICAL HISTORY : Hernia surgery. ENCOUNTER: Initial ACUITY: 3 days PAIN SCALE: 6/10 LOCATION: Right spine TECHNIQUE: Volumetric scanning of the lumbar spine was performed. Multiplanar reconstructions in the sagittal, coronal and oblique axial planes were performed. Using automated exposure control and adjustment of the mA and/or kV according to patient size, radiation dose was kept as low as reasonably achievable t o obtain optimal diagnostic quality images. DICOM format image data is available electronically for review and comparison. FINDINGS: VERTEBRAE: Normal vertebral body height. ALIGNMENT: No evidence of subluxation. The right psoas muscle is partially seen and is enlarged and increased in density suggesting intramus cular hematoma. There is a 4.5 cm cyst involving the posterior aspect of the right kidney. Hounsfield units are 9. T12-L1: The thecal sac has a normal diameter. No evidence of disc bulge or protrusion. The neural foramina are patent bilaterally. L1-L2: The thecal sac has a normal diameter. No evidence of disc bulge or protrusion. The neural foramina are patent bilaterally. L2-L3: There is a mild broad-based disc bulge. Central canal and lateral recesses are patent. Neural foramin a are patent. Mild ligamentum flavum hypertrophy of the facets. L3-L4: There is a mild broad-based disc bulge. Central canal and lateral recesses are patent. Neural foramin a are patent. Mild ligamentum flavum hypertrophy of the facets. L4-L5: There is a broad-based disc bulge. Moderate ligamentum flavum hypertrophy and bony hypertrophy of the facets. Narrowing of the neural foramina bilaterally more pronounced on the left. There is vacuum di sc phenomena seen. A tiny focus of air is seen within the extrathecal space of the left lateral reces s. L5-S1: There is vacuum disc phenomena. Disc space narrowing with left paracentral disc bulge. This narrows t he left lateral recess. The right lateral recess and central canal are patent. Narrowing of the neura l foramina bilaterally. Bony hypertrophy of the facet joints. CONCLUSION: 1. Partial visualization of the right psoas muscle which is abnormal and consistent with an intramusc ular hematoma. 2. Multilevel degenerative changes as detailed above. Tom Delaney Jr., MD on January 10, 2017 at 8:45 Board Certified Radiologist. This report was verified electronically.
[2017-01-10] MEDS ORDERED: IOHEXOL 350 MG/ML 10 ML VIAL (for RAD DIAG) IVCONTRAST ONE (09:27)
--- NOTE | 2017-01-10 09:46 | RADRPT ---
EXAM DATE/TIME: 01/10/2017 09:21 [place] COMPARISON: CT LUMBAR SPINE W/O CONTRAST, January 10, 2017, 8:19. INDICATIONS : Abnormal previous CT lumbar. Evaluate right psoas muscle area. No injury. IV CONTRAST: 95 cc Omnipaque 350 (iohexol) IV ORAL CONTRAST: No oral contrast ingested. RADIATION DOSE: 13.10 CTDIvol (mGy) MEDICAL HISTORY : Cerebrovascular disease. Hypertension. Renal calculi. SURGICAL HISTORY : Hernia surgery. ENCOUNTER: Initial ACUITY: 3 days PAIN SCALE: 6/10 LOCATION: Right abdomen TECHNIQUE: Volumetric scanning of the abdomen and pelvis was performed. Using automated exposure control and ad justment of the mA and/or kV according to patient size, radiation dose was kept as low as reasonably achievable to obtain optimal diagnostic quality images. DICOM format image data is available electro nically for review and comparison. FINDINGS: The lung base is are clear. The liver is free of focal defects. Small gallstones are noted. The spleen and pancreas are unremarkable The adrenal glands appear normal There is an 84.9 cm right renal cyst The left kidney is unremarkable There is large right iliopsoas/psoas apparent hematoma on the right extending to the right hip. Mini mal active extravasation is evident. Trace fluid is evident on the right. There is a 3.6 cm infrarenal abdominal aortic aneurysm Large prostate measuring 6.4 cm is noted. Fracture is not appreciated. CONCLUSION: Large right psoas hematoma on the right extending to the hip. Active extravasation i s evident. Minimal free fluid is present on the right. Etiology is not apparent. Discussed with Dr Rolo Almanza. Emanuel Sandoval MD FACR on January 10, 2017 at 9:37 Board Certified Radiologist. This report was verified electronically.
[2017-01-10 10:21] LABS: AUTOMATED NEUTROPHIL # 5.2 TH/MM3 (1.8-7.7); BASOPHIL # 0.1 TH/MM3 (0-0.2); BASOPHIL % 2.3 % (0.0-2.0); EOSINOPHIL % 0.6 % (0.0-4.0); HEMATOCRIT 43.8 % (39.0-51.0); LYMPH % 6.7 % (9.0-44.0); LYMPHOCYTE # 0.4 TH/MM3 (1.0-4.8); MEAN CELL VOLUME 96.5 FL (80.0-100.0); MEAN CORPUSCULAR HEMOGLOBIN 32.1 PG (27.0-34.0); MEAN CORPUSCULAR HGB CONC 33.2 % (32.0-36.0); MONO % 7.2 % (0.0-8.0); NEUT % 83.2 % (16.0-70.0); PLATELET COUNT 138 TH/MM3 (150-450); RED BLOOD COUNT 4.54 MIL/MM3 (4.50-5.90); RED CELL DISTRIBUTION WIDTH 12.4 % (11.6-17.2); WHITE BLOOD COUNT 6.1 TH/MM3 (4.0-11.0)
[2017-01-10 10:30] LABS: HEMO FLAGS AUTO DIFF
[2017-01-10] MEDS ORDERED: SODIUM CHLORIDE 0.9% FLUSH 10 ML FLUSH IV FLUSH PRN (11:00)
[2017-01-10] MEDS ORDERED: RESP: ALBUTEROL 2.5 MG/IPRATROPIUM 0.5 MG NEB (PRN) NEB (11:00)
[2017-01-10] MEDS ORDERED: ACETAMINOPHEN 325 MG TAB PO PRN ×2 (11:00)
[2017-01-10] MEDS ORDERED: NALOXONE HCL 0.4 MG/ML AMP IV PUSH PRN (11:00)
--- NOTE | 2017-01-10 11:07 | HHI.HP ---
[facility] Service [facility] ([place], [place])ists Primary Care Physician Harsha Hodge MD Admission Diagnosis psoas hematoma, hip pain, A. fib Diagnoses: (1) Hyperlipidemia (2) Benign hypertension (3) Psoas hematoma, right, secondary to anticoagulant therapy (4) Nontraumatic psoas hematoma (5) Atrial fibrillation Chief Complaint: Right hip pain Travel History International Travel<30 Days: No Contact w/Intl Traveler <30 Da: No Traveled to Known Affected Are: No History of Present Illness 76 year-old man with a history of atrial fibrillation, hyperlipidemia and hypertension was brought to the ED for evaluation of worsening symptoms of right lower extremity pain 3 days duration. Patient stated in the evening of 01/09/17 as he was watching TV he suddenly felt severe excruciating right lower extremity pain, localized and rated 10 in intensity denies any time any trauma, fall and he stated he was unable to walk and get up from a sitting position. He Had to use his 's cane to stand up. Over the following day, patient reported worsening pain. As stated earlier patient was recently discharged from [facility] after undergoing treatment for A. fib with RVR for which he was prescribed Coumadin and Lovenox bridge. Patient reports compliance with medications including this morning before coming to the ED. A CT abdomen pelvic revealing large right psoas hematoma on the right extending to the hip. Of note, a call was placed by the ED physician who discussed the case with cardiology regarding patient current need for anticoagulation as well as possible ablation. Review of Systems Except as stated in HPI: all other systems reviewed are Neg Past Family Social History Past Medical History history of A. fib, hypertension, hyperlipidemia and anxiety Past Surgical History Hernia surgery. Kidney stone surgery Reported Medications Lisinopril 10 Mg Tab 5 Mg PO DAILY Lovenox Inj (Enoxaparin Sodium) 80 mg/0.8 ML Syr 80 Mg SQ Q12H dc when INR > 2 Reported Diltiazem ER 24 HR 240 Mg Amanda 240 Mg PO DAILY Digoxin 0.125 Mg Tab 0.125 Mg PO DAILY Tamsulosin (Tamsulosin HCl) 0.4 Mg Cap 0.4 Mg PO HS Metoprolol Succinate ER 24 HR (Metoprolol Succinate) 100 Mg Tab 100 Mg PO BID Warfarin 1 Mg Tab 1.5 Mg PO DAILY Omeprazole 20 Mg Tab 20 Mg PO DAILY Vitamin B-12 (Cyanocobalamin) 250 Mcg Lozg 250 Mcg BUCCAL DAILY Lipitor (Atorvastatin Calcium) 40 Mg Tab 40 Mg PO HS Allergies: Coded Allergies: pneumococcal vaccine (Verified Allergy, Severe, Numbness, 01/10/17) Family History Denies heart disease Father from complication of stroke Social History Occasional alcohol use but does not smoke Physical Exam Vital Signs Vital Signs Date Time Temp Pulse Resp B/P (MAP) Pulse Ox O2 Delivery O2 Flow Rate FiO2 01/10/17 10:05 90 18 129/87 (101) 98 Room Air 01/10/17 08:27 88 18 151/99 (116) 97 Room Air 01/10/17 08:26 18 01/10/17 08:26 18 01/10/17 07:17 97.2 86 20 157/112 (127) 98 Physical Exam GENERAL: This is a well-nourished, well-developed patient, in no apparent distress. SKIN: No rashes, ecchymoses or lesions. Cool and dry. HEAD: Atraumatic. Normocephalic. No temporal or scalp tenderness. EYES: Pupils equal round and reactive. Extraocular motions intact. No scleral icterus. No injection or drainage. ENT: Nose without bleeding, purulent drainage or septal hematoma. Throat without erythema, tonsillar hypertrophy or exudate. Uvula midline. Airway patent. NECK: Trachea midline. No JVD or lymphadenopathy. Supple, nontender, no meningeal signs. CARDIOVASCULAR: Irregular Regular rate and rhythm without murmurs, gallops, or rubs. RESPIRATORY: Clear to auscultation. Breath sounds equal bilaterally. No wheezes , rales, or rhonchi. GASTROINTESTINAL: Abdomen soft, non-tender, nondistended. No hepato-splenomegaly , or palpable masses. No guarding. MUSCULOSKELETAL: Extremities without clubbing, cyanosis, or edema. No joint tenderness, effusion, or edema noted. Right LLE TTP-neurovascular intact NEUROLOGICAL: Awake and alert. Cranial nerves II through XII intact. Motor and sensory grossly within normal limits. Five out of 5 muscle strength in all muscle groups. Normal speech. Laboratory Laboratory Tests Test 01/10/17 08:00 White Blood Count 6.1 Red Blood Count 4.54 Hemoglobin 14.6 Hematocrit 43.8 Mean Corpuscular Volume 96.5 Mean Corpuscular Hemoglobin 32.1 Mean Corpuscular Hemoglobin Concent 33.2 Red Cell Distribution Width 12.4 Platelet Count 138 Mean Platelet Volume 10.2 Neutrophils (%) (Auto) 83.2 Lymphocytes (%) (Auto) 6.7 Monocytes (%) (Auto) 7.2 Eosinophils (%) (Auto) 0.6 Basophils (%) (Auto) 2.3 Neutrophils # (Auto) 5.2 Lymphocytes # (Auto) 0.4 Monocytes # (Auto) 0.4 Eosinophils # (Auto) 0.0 Basophils # (Auto) 0.1 CBC Comment AUTO DIFF Prothrombin Time 21.3 Prothromb Time International Ratio 1.9 Blood Urea Nitrogen 15 Creatinine 0.93 Random Glucose 135 Calcium Level 8.9 Sodium Level 139 Potassium Level 3.5 Chloride Level 106 Carbon Dioxide Level 22.6 Anion Gap 10 Estimat Glomerular Filtration Rate 79 Result Diagram: 01/10/17 0801/10/17 0800 Caprini VTE Risk Assessment Caprini VTE Risk Assessment: Mod/High Risk (score >= 2) VTE Pharm Contraindication: psoas hematoma Caprini Risk Assessment Model Point Value = 1 Point Value = 2 Point Value = 3 Point Value = 5 Age 41-60 Minor surgery BMI > 25 kg/m2 Swollen legs Varicose veins or History of unexplained or recurrent spontaneous Oral contraceptives or hormone replacement Sepsis (< 1 month) Serious lung disease, including pneumonia (< 1 month) Abnormal pulmonary function Acute myocardial infarction Congestive heart failure (< 1 month) History of inflammatory bowel disease Medical patient at bed rest Age 61-74 Arthroscopic surgery Major open surgery (> 45 min) Laparoscopic surgery (> 45 min) Malignancy Confined to bed (> 72 hours) Immobilizing plaster cast Central venous access Age >= 75 History of VTE Family history of VTE Factor V Leiden Prothrombin [id number] Lupus anticoagulant Anticardiolipin antibodies Elevated serum homocysteine Heparin-induced thrombocytopenia Other congenital or acquired thrombophilia Stroke (< 1 month) Elective arthroplasty Hip, pelvis, or leg fracture Acute spinal cord injury (< 1 month) Prophylaxis Regimen Total Risk Factor Score Risk Level Prophylaxis Regimen 0-1 Low Early ambulation 2 Moderate Order ONE of the following: *Sequential Compression Device (SCD) *Heparin 5000 units SQ BID 3-4 Higher Order ONE of the following medications: *Heparin 5000 units SQ TID *Enoxaparin/Lovenox 40 mg SQ daily (WT < 150 kg, CrCl > 30 mL/min) *Enoxaparin/Lovenox 30 mg SQ daily (WT < 150 kg, CrCl > 10-29 mL/min) *Enoxaparin/Lovenox 30 mg SQ BID (WT < 150 kg, CrCl > 30 mL/min) AND/OR *Sequential Compression Device (SCD) 5 or more Highest Order ONE of the following medications: *Heparin 5000 units SQ TID (Preferred with Epidurals) *Enoxaparin/Lovenox 40 mg SQ daily (WT < 150 kg, CrCl > 30 mL/min) *Enoxaparin/Lovenox 30 mg SQ daily (WT < 150 kg, CrCl > 10-29 mL/min) *Enoxaparin/Lovenox 30 mg SQ BID (WT < 150 kg, CrCl > 30 mL/min) AND *Sequential Compression Device (SCD) Assessment and Plan Problem List: (1) Psoas hematoma, right, secondary to anticoagulant therapy ICD Code: S30.1XXA - Contusion of abdominal wall, initial encounter Status: Acute (2) Nontraumatic psoas hematoma ICD Code: M79.81 - Nontraumatic hematoma of soft tissue Status: Acute (3) Atrial fibrillation ICD Code: I48.91 - Unspecified atrial fibrillation Status: Acute (4) Benign hypertension ICD Code: I10 - Essential (primary) hypertension (5) Hyperlipidemia ICD Code: E78.5 - Hyperlipidemia, unspecified Assessment and Plan 76 year-old man with Right psoas hematoma CT abdomen/pelvics noted and review by me with finding of large right psoas hematoma on the right extending to the right hip with active extravasation Hold all oral anticoagulation including Coumadin along with Lovenox Consider evaluation from general surgery for possible evacuation Pain management accordingly Paroxysmal atrial fibrillation Currently rate control Hold Coumadin and Lovenox secondary to above right psoas hematoma with extravasation Resume beta dwaine, Cardizem, digoxin and consult cardiology for further recommendations on anticoagulation versus ablation as was previously plan Telemetry monitoring Hypertension Currently normotensive and resume oral antihypertensive medications Hyperlipidemia Resume statin DVT prophylaxis: Chemical anti-prophylaxis is contraindicated, will use instead bilateral SCDs Code Status Full code Discussed Condition With ELIZABETH Cooper physician Physician Certification 2 Midnight Certification Type: Admission for Inpatient Services Order for Inpatient Services The services are ordered in accordance with Medicare regulations or non- Medicare payer requirements, as applicable. In the case of services not specified as inpatient-only, they are appropriately provided as inpatient services in accordance with the 2-midnight benchmark. Estimated LOS (days): 2 days is the estimated time the patient will need to remain in the hospital, assuming treatment plan goals are met and no additional complications. Post-Hospital Plan: Not yet determined Problem Qualifiers (1) Psoas hematoma, right, secondary to anticoagulant therapy: Qualified Codes: S30.1XXA - Contusion of abdominal wall, initial encounter (2) Atrial fibrillation: Qualified Codes: I48.1 - Persistent atrial fibrillation Miguel A Castillo MD Jan 10, 2017 11:07
[2017-01-10 11:24] LABS: CRENATED RBCS 2+ (NORMAL); PLATELET ESTIMATE SMEAR LOW (NORMAL); PLATELET MORPHOLOGY NORMAL (NORMAL); SCAN/DIFF AUTO DIFF CONFIRMED
[2017-01-10] MEDS: ACETAMINOPHEN/HYDROcodone 325 MG/7.5 MG TAB PO PRN ×2 (19:42→23:24)
[2017-01-10] MEDS: ATORVASTATIN 40 MG TAB PO SCH (20:58)
[2017-01-10] MEDS: TAMSULOSIN HCL 0.4 MG CAP PO SCH (20:58)
[2017-01-10] MEDS: DOCUSATE SODIUM 50 MG/SENNA 8.6 MG TAB PO SCH (20:58)
[2017-01-10] MEDS: SODIUM CHLORIDE 0.9% FLUSH 10 ML FLUSH IV FLUSH SCH (20:58)
[2017-01-10] MEDS: METOPROLOL SUCCINATE 50 MG EXTENDED RELEASE TAB PO SCH (20:59)
[2017-01-10] MEDS: ONDANSETRON HCL 4 MG/2 ML VIAL IVP PRN (23:24)
[2017-01-11] VITALS (26 sets, daily range): BP systolic 92–149; BP diastolic 51–97; PULSE 44–118; RESP 16–20; TEMP 97.6–99; O2SAT 95–97
[2017-01-11] MEDS: ACETAMINOPHEN/HYDROcodone 325 MG/5 MG TAB PO PRN (00:41)
[2017-01-11] MEDS ORDERED: MORPHINE SULFATE 2 MG/ML INJ IV PUSH ONE (01:30)
[2017-01-11] MEDS ORDERED: MORPHINE SULFATE 4 MG/ML INJ IV PUSH PRN (03:15)
[2017-01-11 06:44] LABS: AUTOMATED NEUTROPHIL # 5.6 TH/MM3 (1.8-7.7); BASOPHIL % 0.2 % (0.0-2.0); EOSINOPHIL % 0.4 % (0.0-4.0); HEMATOCRIT 37.6 % (39.0-51.0); HEMO FLAGS DIFF FINAL; LYMPH % 7.1 % (9.0-44.0); LYMPHOCYTE # 0.5 TH/MM3 (1.0-4.8); MEAN CELL VOLUME 95.4 FL (80.0-100.0); MEAN CORPUSCULAR HEMOGLOBIN 32.8 PG (27.0-34.0); MEAN CORPUSCULAR HGB CONC 34.4 % (32.0-36.0); MONO % 11.9 % (0.0-8.0); NEUT % 80.4 % (16.0-70.0); PLATELET COUNT 128 TH/MM3 (150-450); RED BLOOD COUNT 3.94 MIL/MM3 (4.50-5.90); RED CELL DISTRIBUTION WIDTH 13.6 % (11.6-17.2); WHITE BLOOD COUNT 6.9 TH/MM3 (4.0-11.0)
[2017-01-11 07:00] LABS: ANION GAP 9 MEQ/L (5-15); AST (GOT) 35 U/L (15-37); BICARBONATE 27.7 MEQ/L (21.0-32.0); BLOOD UREA NITROGEN 19 MG/DL (7-18); CHLORIDE 106 MEQ/L (98-107); GLOMERULAR FILTRATION RATE 66 ML/MIN (>89); POTASSIUM 3.6 MEQ/L (3.5-5.1); SODIUM (NA) 143 MEQ/L (136-145)
[2017-01-11 07:01] LABS: ALT (GPT) 40 U/L (12-78)
[2017-01-11 07:04] LABS: ALKALINE PHOSPHATASE 66 U/L (45-117); TOTAL BILIRUBIN ADULT 0.8 MG/DL (0.2-1.0)
[2017-01-11] MEDS: DILTIAZEM-CD 240 MG CAP ER PO SCH (08:32)
[2017-01-11] MEDS: SODIUM CHLORIDE 0.9% FLUSH 10 ML FLUSH IV FLUSH SCH ×2 (08:32→21:17)
[2017-01-11] MEDS: METOPROLOL SUCCINATE 50 MG EXTENDED RELEASE TAB PO SCH ×2 (08:32→21:19)
[2017-01-11] MEDS: PANTOPRAZOLE SOD 20 MG DELAYED RELEASE TAB PO SCH (08:33)
[2017-01-11] MEDS: ACETAMINOPHEN/HYDROcodone 325 MG/7.5 MG TAB PO PRN ×3 (08:33→22:09)
[2017-01-11] MEDS: DOCUSATE SODIUM 50 MG/SENNA 8.6 MG TAB PO SCH ×2 (08:33→21:17)
[2017-01-11] MEDS: DIGOXIN 0.125 MG TAB PO SCH (08:34)
[2017-01-11] MEDS: LISINOPRIL 5 MG TAB PO SCH (08:40)
--- NOTE | 2017-01-11 12:26 | HHI.PR ---
Subjective Remarks Follow-up right psoas hematoma/PAF 01/11/17-patient seen and examined, still complains of right lower extremity pain along with back pain. Currently afebrile. Objective Vitals Vital Signs Date Time Temp Pulse Resp B/P (MAP) Pulse Ox O2 Delivery O2 Flow Rate FiO2 01/11/17 11:56 18 01/11/17 10:00 100 01/11/17 09:00 94 01/11/17 08:00 104 01/11/17 07:02 99.0 88 20 147/97 (114) 97 01/11/17 07:00 88 01/11/17 06:05 66 01/11/17 05:00 76 01/11/17 04:00 77 01/11/17 03:02 74 01/11/17 03:02 98.7 85 16 149/96 (113) 95 01/11/17 02:15 16 01/11/17 02:00 75 01/11/17 01:45 18 01/11/17 01:00 78 01/11/17 00:00 118 01/10/17 23:02 99.0 113 18 149/94 (112) 95 01/10/17 23:00 108 01/10/17 22:00 80 01/10/17 21:00 88 01/10/17 20:00 86 01/10/17 19:02 99.2 78 18 150/99 (116) 97 01/10/17 19:00 80 01/10/17 18:06 99 01/10/17 17:09 92 01/10/17 16:21 97.3 128 18 161/91 (114) 96 01/10/17 15:36 01/10/17 12:58 69 18 135/96 (109) 99 Room Air I/O 01/10/17 01/10/17 01/10/17 01/11/17 01/11/17 01/11/17 07:00 15:00 23:00 07:00 15:00 23:00 Intake Total 120 ml 250 ml 240 ml Output Total 400 ml Balance 120 ml -150 ml 240 ml Intake Oral 120 ml 250 ml 240 ml Output Urine Total 400 ml # Voids 1 # Bowel Movements 1 Result Diagram: 01/11/17 0541 01/11/17 0541 Imaging Last Impressions Lumbar Spine CT 01/10/17 0000 Signed Impressions: Service Date/Time: Tuesday, January 10, 2017 08:19 - CONCLUSION: 1. Partial visualization of the right psoas muscle which is abnormal and consistent with an intramuscular hematoma. 2. Multilevel degenerative changes as detailed above. Tom Delaney Jr., MD Abdomen/Pelvis CT 01/10/17 0000 Signed Impressions: Service Date/Time: Tuesday, January 10, 2017 09:21 - CONCLUSION: Large right psoas hematoma on the right extending to the hip. Active extravasation is evident. Minimal free fluid is present on the right. Etiology is not apparent. Discussed with Dr. Almanza. Emanuel Sandoval MD FACR Objective Remarks GENERAL: NAD SKIN: Warm and dry. HEAD: Normocephalic. EYES: No scleral icterus. No injection or drainage. NECK: Supple, trachea midline. No JVD or lymphadenopathy. CARDIOVASCULAR: Irregular Regular rate and rhythm without murmurs, gallops, or rubs. RESPIRATORY: Breath sounds equal bilaterally. No accessory muscle use. GASTROINTESTINAL: Abdomen soft, non-tender, nondistended. MUSCULOSKELETAL: No cyanosis, or edema. Limited ROM RLL BACK: +tender without obvious deformity. No CVA tenderness. A/P Problem List: (1) Psoas hematoma, right, secondary to anticoagulant therapy ICD Code: S30.1XXA - Contusion of abdominal wall, initial encounter Status: Acute (2) Nontraumatic psoas hematoma ICD Code: M79.81 - Nontraumatic hematoma of soft tissue Status: Acute (3) Atrial fibrillation ICD Code: I48.91 - Unspecified atrial fibrillation Status: Acute (4) Benign hypertension ICD Code: I10 - Essential (primary) hypertension (5) Hyperlipidemia ICD Code: E78.5 - Hyperlipidemia, unspecified Assessment and Plan 76 year-old man with Right psoas hematoma CT abdomen/pelvics with finding of large right psoas hematoma on the right extending to the right hip with active extravasation Lumbar spine MRI with intramuscular hematoma Continue to Hold all oral anticoagulation including Coumadin along with Lovenox Will consult surgery for evaluation for possible evacuation of hematoma Pain management accordingly Monitor H&H Paroxysmal atrial fibrillation Hold Coumadin and Lovenox secondary to above right psoas hematoma with extravasation Continue beta dwaine, Cardizem, digoxin and pending cardiology consultation for further recommendations on anticoagulation versus ablation as was previously plan Telemetry monitoring Hypertension Currently normotensive and continue oral antihypertensive medications Hyperlipidemia Continue statin DVT prophylaxis: Chemical anti-prophylaxis is contraindicated, will use instead bilateral SCDs Problem Qualifiers (1) Psoas hematoma, right, secondary to anticoagulant therapy: Qualified Codes: S30.1XXA - Contusion of abdominal wall, initial encounter (2) Atrial fibrillation: Qualified Codes: I48.1 - Persistent atrial fibrillation Miguel A Castillo MD Jan 11, 2017 12:26
[2017-01-11] MEDS ORDERED: CALCIUM CARBONATE 500 MG CHEWABLE TAB CHEW PRN (16:00)
[2017-01-11] MEDS: ATORVASTATIN 40 MG TAB PO SCH (21:16)
[2017-01-11] MEDS: TAMSULOSIN HCL 0.4 MG CAP PO SCH (21:17)
[2017-01-11] MEDS: FAMOTIDINE 20 MG TAB PO SCH (21:17)
--- NOTE | 2017-01-11 21:58 | PD.CONS ---
cc: Jose Cruz Figueroa MD [facility] Service Orthopedic Surgeons Consult Requested By Dr. Castillo Reason for Consult Psoas hematoma Primary Care Physician Harsha Hodge MD Admission Diagnosis psoas hematoma, hip pain, A. fib Diagnoses: (1) Psoas hematoma, right, secondary to anticoagulant therapy (2) Atrial fibrillation (3) Benign hypertension (4) Hyperlipidemia Chief Complaint: Abdominal, right hip and leg pain History of Present Illness 76 year-old man with a history of atrial fibrillation, hyperlipidemia and hypertension was brought to the ED for evaluation of worsening symptoms of right lower extremity pain 3 days duration. Patient stated in the evening of 01/09/17 as he was watching TV he suddenly felt severe excruciating right lower extremity pain, localized and rated 10 in intensity denies any time any trauma, fall and he stated he was unable to walk and get up from a sitting position. He Had to use his 's cane to stand up. Over the following day, patient reported worsening pain. As stated earlier patient was recently discharged from [place] after undergoing treatment for A. fib with RVR for which he was prescribed Coumadin and Lovenox bridge. Patient reports compliance with medications including the morning before coming to the ED. A CT abdomen pelvic revealing large right psoas hematoma on the right extending to the hip. Review of the records reveals consideration was for general surgical consultation for possible evacuation of the hematoma although an orthopedic consultation was also requested. Currently the patient is awake alert and answers questions appropriately. He feels his pain is improving. Review of Systems Reviewed and well outlined in the medical record Past Family Social History Past Medical History history of A. fib, hypertension, hyperlipidemia and anxiety Past Surgical History Hernia surgery. Kidney stone surgery Allergies: Coded Allergies: pneumococcal vaccine (Verified Allergy, Severe, Numbness, 01/10/17) Active Ordered Medications Current Medications Medications (Trade) Dose Ordered Sig/Makenna Route Start Time Stop Time Status Last Admin (Lipitor) 40 mg HS PO 01/10/17 21:00 01/11/17 21:16 (Lanoxin) 0.125 mg DAILY PO 01/11/17 09:00 01/11/17 08:34 (Cardizem Cd) 240 mg DAILY PO 01/11/17 09:00 01/11/17 08:32 (Prinivil) 5 mg DAILY PO 01/11/17 09:00 01/11/17 08:40 (Flomax) 0.4 mg HS PO 01/10/17 21:00 01/11/17 21:17 (Toprol Xl) 100 mg BID PO 01/10/17 21:00 01/11/17 21:19 (Protonix) 20 mg DAILY PO 01/11/17 09:00 01/11/17 08:33 (NS Flush) 2 ml UNSCH PRN IV FLUSH 01/10/17 11:00 (NS Flush) 2 ml BID IV FLUSH 01/10/17 21:00 01/11/17 21:17 (Tylenol) 650 mg Q4H PRN PO 01/10/17 11:00 (Zofran Inj) 4 mg Q6H PRN IVP 01/10/17 11:00 01/10/17 23:24 (Tylenol) 650 mg Q6H PRN PO 01/10/17 11:00 ([place]mont 5-325 Mg) 1 tab Q4H PRN PO 01/10/17 11:00 01/11/17 00:41 ([place] 7.5-325 Mg) 1 tab Q4H PRN PO 01/10/17 11:00 01/11/17 13:54 (Narcan Inj) 0.4 mg UNSCH PRN IV PUSH 01/10/17 11:00 (Kelsey-Colace) 1 tab BID PO 01/10/17 21:00 01/11/17 21:17 (Duoneb Neb) 1 ampule Q2HR NEB PRN NEB 01/10/17 11:00 (Morphine Inj) 3 mg Q3H PRN IV PUSH 01/11/17 03:15 01/11/17 14:17 (Tums Chew) 500 mg Q6H PRN CHEW 01/11/17 16:00 (Pepcid) 20 mg BID PO 01/11/17 21:00 01/11/17 21:17 Reported Meds & Active Scripts Active Lisinopril 10 Mg Tab 5 Mg PO DAILY Lovenox Inj (Enoxaparin Sodium) 80 mg/0.8 ML Syr 80 Mg SQ Q12H dc when INR > 2 Reported Diltiazem ER 24 HR 240 Mg Amanda 240 Mg PO DAILY Digoxin 0.125 Mg Tab 0.125 Mg PO DAILY Tamsulosin (Tamsulosin HCl) 0.4 Mg Cap 0.4 Mg PO HS Metoprolol Succinate ER 24 HR (Metoprolol Succinate) 100 Mg Tab 100 Mg PO BID Warfarin 1 Mg Tab 1.5 Mg PO DAILY Omeprazole 20 Mg Tab 20 Mg PO DAILY Vitamin B-12 (Cyanocobalamin) 250 Mcg Lozg 250 Mcg BUCCAL DAILY Lipitor (Atorvastatin Calcium) 40 Mg Tab 40 Mg PO HS Family History Denies heart disease Father from complication of stroke Social History Occasional alcohol use but does not smoke Physical Exam Vital Signs Vital Signs Date Time Temp Pulse Resp B/P (MAP) Pulse Ox O2 Delivery O2 Flow Rate FiO2 01/11/17 18:36 44 01/11/17 17:11 48 01/11/17 16:22 52 01/11/17 16:22 98.2 80 18 119/76 (90) 97 01/11/17 14:38 18 01/11/17 14:38 18 01/11/17 14:08 65 01/11/17 13:16 80 01/11/17 12:29 90 01/11/17 11:47 98.2 80 18 145/91 (109) 96 01/11/17 11:47 80 01/11/17 10:00 100 01/11/17 09:00 94 01/11/17 08:00 104 01/11/17 07:02 99.0 88 20 147/97 (114) 97 01/11/17 07:00 88 01/11/17 06:05 66 01/11/17 05:00 76 01/11/17 04:00 77 01/11/17 03:02 74 01/11/17 03:02 98.7 85 16 149/96 (113) 95 01/11/17 02:15 16 01/11/17 02:00 75 01/11/17 01:45 18 01/11/17 01:00 78 01/11/17 00:00 118 01/10/17 23:02 99.0 113 18 149/94 (112) 95 01/10/17 23:00 108 01/10/17 22:00 80 Physical Exam The patient is awake alert and answers questions appropriately. He was lying in bed upon entering the room. He sat up easily and without restriction. He complains of pain primarily over the lateral aspect of the right hip. There is no overlying skin change. There is minimal swelling. He has mild discomfort with passive range of motion. He has a negative straight leg raise with 5 out of 5 motor strength and no sensory deficit. Laboratory Laboratory Tests Test 01/11/17 05:41 White Blood Count 6.9 Red Blood Count 3.94 Hemoglobin 12.9 Hematocrit 37.6 Mean Corpuscular Volume 95.4 Mean Corpuscular Hemoglobin 32.8 Mean Corpuscular Hemoglobin Concent 34.4 Red Cell Distribution Width 13.6 Platelet Count 128 Mean Platelet Volume 9.7 Neutrophils (%) (Auto) 80.4 Lymphocytes (%) (Auto) 7.1 Monocytes (%) (Auto) 11.9 Eosinophils (%) (Auto) 0.4 Basophils (%) (Auto) 0.2 Neutrophils # (Auto) 5.6 Lymphocytes # (Auto) 0.5 Monocytes # (Auto) 0.8 Eosinophils # (Auto) 0.0 Basophils # (Auto) 0.0 CBC Comment DIFF FINAL Differential Comment Blood Urea Nitrogen 19 Creatinine 1.08 Random Glucose 117 Total Protein 6.3 Albumin 3.2 Calcium Level 8.4 Alkaline Phosphatase 66 Aspartate Amino Transf (AST/SGOT) 35 Alanine Aminotransferase (ALT/SGPT) 40 Total Bilirubin 0.8 Sodium Level 143 Potassium Level 3.6 Chloride Level 106 Carbon Dioxide Level 27.7 Anion Gap 9 Estimat Glomerular Filtration Rate 66 Result Diagram: 01/11/17 0541 01/11/17 0541 Imaging Last 72 hours Impressions Lumbar Spine CT 01/10/17 0000 Signed Impressions: Service Date/Time: Tuesday, January 10, 2017 08:19 - CONCLUSION: 1. Partial visualization of the right psoas muscle which is abnormal and consistent with an intramuscular hematoma. 2. Multilevel degenerative changes as detailed above. Tom Delaney Jr., MD Abdomen/Pelvis CT 01/10/17 0000 Signed Impressions: Service Date/Time: Tuesday, January 10, 2017 09:21 - CONCLUSION: Large right psoas hematoma on the right extending to the hip. Active extravasation is evident. Minimal free fluid is present on the right. Etiology is not apparent. Discussed with Dr. Almanza. Emanuel Sandoval MD FACR Assessment & Plan Problem List: (1) Psoas hematoma, right, secondary to anticoagulant therapy ICD Codes: S30.1XXA - Contusion of abdominal wall, initial encounter Status: Acute Qualifiers: Qualified Codes: S30.1XXA - Contusion of abdominal wall, initial encounter (2) Atrial fibrillation ICD Codes: I48.91 - Unspecified atrial fibrillation Status: Acute Qualifiers: Qualified Codes: I48.1 - Persistent atrial fibrillation (3) Benign hypertension ICD Codes: I10 - Essential (primary) hypertension (4) Hyperlipidemia ICD Codes: E78.5 - Hyperlipidemia, unspecified Assessment and Plan The findings were discussed. The patient appears to be improving. In most cases, these will resolve with nonoperative management. If the patient does require surgical management it would be appropriate to consult general surgery as it is not typically an orthopedic intervention. Thank you for allowing me to participate in his care. Please reconsult as needed. Jose Cruz Figueroa MD Jan 11, 2017 21:58
--- NOTE | 2017-01-11 22:04 | MB ---
cc: ANIRUDH BUTLER M.D. DATE OF CONSULTATION 01/11/2017 Electrophysiology consult REASON FOR CONSULTATION Atrial fibrillation with rapid ventricular response and psoas muscle hematoma. HISTORY Mr. Shrestha is a 76-year-old gentleman with history of high blood pressure, hyperlipidemia, atrial fibrillation recently admitted at the [facility] due to atrial fibrillation with rapid ventricular response. He was discharged home on Lovenox and Coumadin. He was admitted due to hematoma, atrial fibrillation and hip pain. CT scan was performed, finding psoas hematoma. The patient was transferred to for further management. The chart was reviewed. The patient was evaluated. I discussed extensively with the patient and there was three of the his family in the room. ALLERGIES PNEUMOCOCCAL VACCINE. SOCIAL HISTORY Drinks occasionally. Negative for smoking. FAMILY HISTORY Noncontributory to his current medical condition. MEDICATIONS Currently the patient is on: 1. Acetaminophen. 2. Codeine. 3. The patient is on Lipitor 40 mg a day. 4. Digoxin 0.125 mg a day. 5. Cardizem 240 mg a day. 6. Famotidine. 7. Lisinopril 5 mg a day. 8. Metoprolol 100 mg twice a day. 9. Protonix. REVIEW OF SYSTEMS Currently the patient refers no chest pain or chest discomfort. No vomiting. No fever. PHYSICAL EXAMINATION GENERAL: Alert, fully oriented. VITAL SIGNS: Blood pressure 144/91, pulse 80, respiratory rate 18. LUNGS: Ventilated. CARDIOVASCULAR: S1-S2 irregular. No gallop. ABDOMEN: Soft. No mass. No bruit. There is right hip area with some pain. Hematoma is resolving. EXTREMITIES: No edema. Electrocardiogram on previous hospitalization showed atrial fibrillation. LABORATORY DATA Hemoglobin is 12.9, white blood cell 6.9. Potassium 3.6, creatinine 1.01. INR 1.9. ASSESSMENT AND RECOMMENDATIONS Mr. Shrestha currently is stable. He has atrial fibrillation. He is on multiple medications. Heart rate is controlled, at this point on telemetry. He has a history of CVA. He is a CHADSVASC 4, 5 at the most. He is going to need anticoagulation. Risk factor for another stroke is very high. At this point I am going to let the hematoma resolve. INR is coming down to 1.9. Will be observed. By tomorrow night he will be safe to initiate NOAC and monitor the patient for the next 24 hours before discharge home. Also electrophysiology study ablation discussed with him. I did explain to him and his family he is going to need anticoagulation for least 3 weeks before ablation attempt. MD ISH De La Rosa/SANAM /9:26 PM /9:43 PM
[2017-01-12] VITALS (28 sets, daily range): BP systolic 119–142; BP diastolic 65–91; PULSE 53–96; RESP 16–18; TEMP 97.9–98.8; O2SAT 95–100
[2017-01-12] MEDS: ONDANSETRON HCL 4 MG/2 ML VIAL IVP PRN (04:00)
[2017-01-12] MEDS: ACETAMINOPHEN/HYDROcodone 325 MG/7.5 MG TAB PO PRN (04:35)
[2017-01-12 05:42] LABS: AUTOMATED NEUTROPHIL # 5.9 TH/MM3 (1.8-7.7); BASOPHIL % 0.5 % (0.0-2.0); EOSINOPHIL # 0.1 TH/MM3 (0-0.4); EOSINOPHIL % 1.6 % (0.0-4.0); HEMATOCRIT 35.9 % (39.0-51.0); HEMO FLAGS DIFF FINAL; LYMPH % 5.1 % (9.0-44.0); LYMPHOCYTE # 0.4 TH/MM3 (1.0-4.8); MEAN CORPUSCULAR HEMOGLOBIN 33.1 PG (27.0-34.0); MEAN CORPUSCULAR HGB CONC 34.4 % (32.0-36.0); MONO % 12.8 % (0.0-8.0); PLATELET COUNT 120 TH/MM3 (150-450); RED BLOOD COUNT 3.74 MIL/MM3 (4.50-5.90); RED CELL DISTRIBUTION WIDTH 13.3 % (11.6-17.2); WHITE BLOOD COUNT 7.4 TH/MM3 (4.0-11.0)
[2017-01-12 05:54] LABS: INTERNATIONAL NORMALIZED RATIO 2.5 RATIO; PROTHROMBIN TIME - PATIENT 29.2 SEC (9.8-11.6)
[2017-01-12] MEDS: DILTIAZEM-CD 240 MG CAP ER PO SCH (09:56)
[2017-01-12] MEDS: SODIUM CHLORIDE 0.9% FLUSH 10 ML FLUSH IV FLUSH SCH ×2 (09:56→21:00)
[2017-01-12] MEDS: PANTOPRAZOLE SOD 20 MG DELAYED RELEASE TAB PO SCH (09:57)
[2017-01-12] MEDS: DIGOXIN 0.125 MG TAB PO SCH (09:57)
[2017-01-12] MEDS: DOCUSATE SODIUM 50 MG/SENNA 8.6 MG TAB PO SCH ×2 (09:57→21:43)
[2017-01-12] MEDS: METOPROLOL SUCCINATE 50 MG EXTENDED RELEASE TAB PO SCH ×2 (09:57→21:43)
[2017-01-12] MEDS: LISINOPRIL 5 MG TAB PO SCH (09:57)
[2017-01-12] MEDS: FAMOTIDINE 20 MG TAB PO SCH ×2 (09:57→21:43)
--- NOTE | 2017-01-12 12:34 | HHI.PR ---
Subjective Remarks Follow-up right psoas hematoma/PAF 01/11/17-patient seen and examined, still complains of right lower extremity pain along with back pain. Currently afebrile. 01/12/17-patient seen and examined, still complains of right hip pain and rated 9/10 in intensity. INR up to 2.5 today Objective Vitals Vital Signs Date Time Temp Pulse Resp B/P (MAP) Pulse Ox O2 Delivery O2 Flow Rate FiO2 01/12/17 12:00 79 01/12/17 11:39 98.5 95 18 136/84 (101) 99 01/12/17 11:00 86 01/12/17 10:00 96 01/12/17 09:00 96 01/12/17 08:00 76 01/12/17 07:56 97.9 78 18 142/91 (108) 95 01/12/17 07:00 63 01/12/17 06:05 59 01/12/17 06:04 14 01/12/17 05:00 62 01/12/17 04:00 62 01/12/17 03:02 98.8 83 16 119/81 (94) 99 01/12/17 03:00 62 01/12/17 02:00 60 01/12/17 01:00 56 01/12/17 00:00 58 01/11/17 23:02 97.8 68 18 96/65 (75) 97 01/11/17 23:00 54 01/11/17 22:00 64 01/11/17 21:00 52 01/11/17 20:00 56 01/11/17 19:02 97.6 66 18 92/51 (65) 96 01/11/17 19:00 62 01/11/17 18:36 44 01/11/17 17:11 48 01/11/17 16:22 52 01/11/17 16:22 98.2 80 18 119/76 (90) 97 01/11/17 14:38 18 01/11/17 14:08 65 01/11/17 13:16 80 I/O 01/11/17 01/11/17 01/11/17 01/12/17 01/12/17 01/12/17 07:00 15:00 23:00 07:00 15:00 23:00 Intake Total 240 ml 480 ml 240 ml Output Total 100 ml Balance 240 ml 480 ml 140 ml Intake Oral 240 ml 480 ml 240 ml Output Urine Total 100 ml # Voids 1 3 4 # Bowel Movements 1 1 Result Diagram: 01/12/17 0519 01/11/17 0541 Imaging Last Impressions Lumbar Spine CT 01/10/17 0000 Signed Impressions: Service Date/Time: Tuesday, January 10, 2017 08:19 - CONCLUSION: 1. Partial visualization of the right psoas muscle which is abnormal and consistent with an intramuscular hematoma. 2. Multilevel degenerative changes as detailed above. Tom Delaney Jr., MD Abdomen/Pelvis CT 01/10/17 0000 Signed Impressions: Service Date/Time: Tuesday, January 10, 2017 09:21 - CONCLUSION: Large right psoas hematoma on the right extending to the hip. Active extravasation is evident. Minimal free fluid is present on the right. Etiology is not apparent. Discussed with Dr. Almanza. Emanuel Sandoval MD FACR Objective Remarks GENERAL: NAD SKIN: Warm and dry. HEAD: Normocephalic. EYES: No scleral icterus. No injection or drainage. NECK: Supple, trachea midline. No JVD or lymphadenopathy. CARDIOVASCULAR: Irregular Regular rate and rhythm without murmurs, gallops, or rubs. RESPIRATORY: Breath sounds equal bilaterally. No accessory muscle use. GASTROINTESTINAL: Abdomen soft, non-tender, nondistended. MUSCULOSKELETAL: No cyanosis, or edema. Right LLE TTP BACK: +tender without obvious deformity. No CVA tenderness. A/P Problem List: (1) Psoas hematoma, right, secondary to anticoagulant therapy ICD Code: S30.1XXA - Contusion of abdominal wall, initial encounter Status: Acute (2) Atrial fibrillation ICD Code: I48.91 - Unspecified atrial fibrillation Status: Acute (3) Benign hypertension ICD Code: I10 - Essential (primary) hypertension (4) Hyperlipidemia ICD Code: E78.5 - Hyperlipidemia, unspecified Assessment and Plan 76 year-old man with Right psoas hematoma CT abdomen/pelvics with finding of large right psoas hematoma on the right extending to the right hip with active extravasation Lumbar spine MRI with intramuscular hematoma Continue to Hold all oral anticoagulation including Coumadin along with Lovenox Appreciate input from orthopedic surgery Patient with continued worsening right hip pain along with increasing INR, therefore will repeat CT abdomen/pelvic 01/12/17 Pain management accordingly Monitor H&H Paroxysmal atrial fibrillation Hold Coumadin and Lovenox secondary to above right psoas hematoma with extravasation Continue beta dwaine, Cardizem, digoxin Appreciate input from cardiology, however due to hematoma and INR 2.5, will hold on restarting oral anticoagulation Telemetry monitoring Hypertension Currently normotensive and continue oral antihypertensive medications Hyperlipidemia Continue statin DVT prophylaxis: Chemical anti-prophylaxis is contraindicated, continue bilateral SCDs Problem Qualifiers (1) Psoas hematoma, right, secondary to anticoagulant therapy: Qualified Codes: S30.1XXA - Contusion of abdominal wall, initial encounter (2) Atrial fibrillation: Qualified Codes: I48.1 - Persistent atrial fibrillation Miguel A Castillo MD Jan 12, 2017 12:34
[2017-01-12] MEDS ORDERED: EPINEPHrine HCL (1:10,000) 1 MG/10 ML SYRINGE ONE (16:04)
[2017-01-12] MEDS ORDERED: ATROPINE SULFATE 1 MG/10 ML SYRINGE ONE (16:04)
[2017-01-12] MEDS ORDERED: IOHEXOL 350 MG/ML 10 ML VIAL (for RAD DIAG) IVCONTRAST ONE (16:38)
--- NOTE | 2017-01-12 17:57 | RADRPT ---
EXAM DATE/TIME: 01/12/2017 16:19 [place] COMPARISON: CT ABDOMEN & PELVIS W CONTRAST, January 10, 2017, 9:21. INDICATIONS : Recheck hematoma IV CONTRAST: 76 cc Omnipaque 350 (iohexol) IV ORAL CONTRAST: No oral contrast ingested. RADIATION DOSE: 11.73 CTDIvol (mGy) MEDICAL HISTORY : Renal calculi. Cerebrovascular disease. Afib SURGICAL HISTORY : None. ENCOUNTER: Subsequent ACUITY: 3 days PAIN SCALE: 6/10 LOCATION: Right Abdomen TECHNIQUE: Volumetric scanning of the abdomen and pelvis was performed. Using automated exposure control and ad justment of the mA and/or kV according to patient size, radiation dose was kept as low as reasonably achievable to obtain optimal diagnostic quality images. DICOM format image data is available electro nically for review and comparison. FINDINGS: LOWER LUNGS: Mild, bibasilar dependent atelectatic changes. Otherwise clear LIVER: Homogeneous density without lesion. There is no dilation of the biliary tree. No calcified gallston es. Vicarious excretion of contrast into gallbladder lumen from the previous CT scan. SPLEEN: Normal size without lesion. PANCREAS: Within normal limits. KIDNEYS: Normal in size and shape. There is no mass, stone or hydronephrosis. Stable 4.8 cm cyst in the poste rior midpole the right kidney. ADRENAL GLANDS: 1.5 cm nodule in the right adrenal gland is stable and statistically represents an adenoma. Left adre nal is radiographic normal. VASCULAR: Stable 3.5 cm infrarenal abdominal aortic aneurysm. BOWEL/MESENTERY: The stomach, small bowel, and colon demonstrate no acute abnormality. There is no free intraperitone al air or fluid. Probable 2.5 cm diverticulum off the junction of the second and third portion of the duodenum. ABDOMINAL WALL: Within normal limits. RETROPERITONEUM: On the prior examination, a right psoas hematoma showed active extravasation. There is no evidence of ongoing bleeding however, the psoas hematoma has definitely enlarged previously measuring 5.7 x 8.6 cm in greatest AP and transverse oblique dimensions, respectively and currently measuring 7.1 x 9.6 c m. BLADDER: No wall thickening or mass. A small amount of hyperdense fluid is now seen in the presacral space as well. REPRODUCTIVE: Prostate remains prominent measuring 6.4 cm in greatest AP dimension. INGUINAL: There is no lymphadenopathy or hernia. MUSCULOSKELETAL: Within normal limits for patient age. CONCLUSION: 1. Interval enlargement of the right psoas retroperitoneal hematoma as detailed above. However, I do not see evidence of ongoing active hemorrhage as was present on the prior exam. 2. Small amount of hyperdense fluid is now identified in the presacral space. Again, no findings of a ctive hemorrhage. 3. Stable 3.5 cm infrarenal abdominal aortic aneurysm. 4. Enlarged prostate. 5. 2.5 cm diverticulum at the junction of the second and third portions of the duodenum. Chi Carl MD on January 12, 2017 at 17:36 Board Certified Radiologist. This report was verified electronically.
[2017-01-12] MEDS: ACETAMINOPHEN/HYDROcodone 325 MG/5 MG TAB PO PRN (19:00)
[2017-01-12] MEDS: ATORVASTATIN 40 MG TAB PO SCH (21:43)
[2017-01-12] MEDS: TAMSULOSIN HCL 0.4 MG CAP PO SCH (21:43)
[2017-01-13] VITALS (14 sets, daily range): BP systolic 111–140; BP diastolic 60–89; PULSE 57–96; RESP 18–20; TEMP 98.2–99; O2SAT 97–100
[2017-01-13 08:39] LABS: INTERNATIONAL NORMALIZED RATIO 2.2 RATIO; PROTHROMBIN TIME - PATIENT 24.6 SEC (9.8-11.6)
[2017-01-13] MEDS: DOCUSATE SODIUM 50 MG/SENNA 8.6 MG TAB PO SCH (09:41)
[2017-01-13] MEDS: METOPROLOL SUCCINATE 50 MG EXTENDED RELEASE TAB PO SCH (09:41)
[2017-01-13] MEDS: FAMOTIDINE 20 MG TAB PO SCH (09:41)
[2017-01-13] MEDS: LISINOPRIL 5 MG TAB PO SCH (09:41)
[2017-01-13] MEDS: PANTOPRAZOLE SOD 20 MG DELAYED RELEASE TAB PO SCH (09:41)
[2017-01-13] MEDS: DILTIAZEM-CD 240 MG CAP ER PO SCH (09:41)
[2017-01-13] MEDS: SODIUM CHLORIDE 0.9% FLUSH 10 ML FLUSH IV FLUSH SCH (09:41)
[2017-01-13] MEDS: DIGOXIN 0.125 MG TAB PO SCH (09:42)
--- NOTE | 2017-01-13 10:37 | HHI.PR ---
Subjective Remarks Follow-up right psoas hematoma/PAF 01/11/17-patient seen and examined, still complains of right lower extremity pain along with back pain. Currently afebrile. 01/12/17-patient seen and examined, still complains of right hip pain and rated 9/10 in intensity. INR up to 2.5 today 01/13/17-patient seen and examined, reports improvement of right hip pain and now down to 6/10. INR 2.2. Patient states he is able to ambulate more. Repeat CT abdomen/pelvics finding discussed with patient. He would like to be discharged home Objective Vitals Vital Signs Date Time Temp Pulse Resp B/P (MAP) Pulse Ox O2 Delivery O2 Flow Rate FiO2 01/13/17 08:00 98.2 76 20 140/84 (102) 97 01/13/17 07:00 70 01/13/17 06:32 65 01/13/17 05:19 69 01/13/17 04:44 96 01/13/17 03:18 66 01/13/17 03:15 98.9 57 111/60 (77) 97 01/13/17 02:02 67 01/13/17 01:25 64 01/13/17 00:05 99.0 88 120/78 (92) 100 01/13/17 00:00 60 01/12/17 23:00 61 01/12/17 22:00 60 01/12/17 22:00 98.3 73 132/81 (98) 100 01/12/17 21:00 58 01/12/17 20:00 74 01/12/17 19:00 76 01/12/17 18:14 70 01/12/17 17:14 66 01/12/17 16:48 80 01/12/17 15:07 98.7 68 18 125/65 (85) 97 01/12/17 15:00 62 01/12/17 14:04 53 01/12/17 13:26 77 01/12/17 12:00 79 01/12/17 11:39 98.5 95 18 136/84 (101) 99 01/12/17 11:00 86 I/O 01/12/17 01/12/17 01/12/17 01/13/17 01/13/17 01/13/17 07:00 15:00 23:00 07:00 15:00 23:00 Intake Total 240 ml 1310 ml 240 ml Output Total 100 ml Balance 140 ml 1310 ml 240 ml Intake Oral 240 ml 1310 ml 240 ml Output Urine Total 100 ml # Voids 4 5 4 # Bowel Movements 1 Result Diagram: 01/12/17 0519 01/11/17 0541 Imaging Last Impressions Abdomen/Pelvis CT 01/12/17 0000 Signed Impressions: Service Date/Time: Thursday, January 12, 2017 16:19 - CONCLUSION: 1. Interval enlargement of the right psoas retroperitoneal hematoma as detailed above. However, I do not see evidence of ongoing active hemorrhage as was present on the prior exam. 2. Small amount of hyperdense fluid is now identified in the presacral space. Again, no findings of active hemorrhage. 3. Stable 3.5 cm infrarenal abdominal aortic aneurysm. 4. Enlarged prostate. 5. 2.5 cm diverticulum at the junction of the second and third portions of the duodenum. Chi Carl MD Lumbar Spine CT 01/10/17 0000 Signed Impressions: Service Date/Time: Tuesday, January 10, 2017 08:19 - CONCLUSION: 1. Partial visualization of the right psoas muscle which is abnormal and consistent with an intramuscular hematoma. 2. Multilevel degenerative changes as detailed above. Tom Delaney Jr., MD Objective Remarks GENERAL: NAD SKIN: Warm and dry. HEAD: Normocephalic. EYES: No scleral icterus. No injection or drainage. NECK: Supple, trachea midline. No JVD or lymphadenopathy. CARDIOVASCULAR: Irregular Regular rate and rhythm without murmurs, gallops, or rubs. RESPIRATORY: Breath sounds equal bilaterally. No accessory muscle use. GASTROINTESTINAL: Abdomen soft, non-tender, nondistended. MUSCULOSKELETAL: No cyanosis, or edema. Right LLE TTP BACK: +tender without obvious deformity. No CVA tenderness. Procedures none A/P Problem List: (1) Psoas hematoma, right, secondary to anticoagulant therapy ICD Code: S30.1XXA - Contusion of abdominal wall, initial encounter Status: Acute (2) Atrial fibrillation ICD Code: I48.91 - Unspecified atrial fibrillation Status: Acute (3) Benign hypertension ICD Code: I10 - Essential (primary) hypertension (4) Hyperlipidemia ICD Code: E78.5 - Hyperlipidemia, unspecified Assessment and Plan 76 year-old man with Right psoas hematoma CT abdomen/pelvics with finding of large right psoas hematoma on the right extending to the right hip with active extravasation Repeat CT abdomen/pelvic with finding of interval enlargement of right psoas retroperitoneal hematoma Lumbar spine MRI with intramuscular hematoma Both Coumadin and Lovenox were held, will now resume Coumadin Appreciate input from orthopedic surgery Pain management accordingly Monitor H&H Paroxysmal atrial fibrillation Continue beta dwaine, Cardizem, digoxin Appreciate input from cardiology, Resume Coumadin 1.5 mg daily as patient will needs 3 weeks of oral anticoagulation prior to cardiac ablation Telemetry monitoring Hypertension Currently normotensive and continue oral antihypertensive medications Hyperlipidemia Continue statin DVT prophylaxis: Chemical anti-prophylaxis is contraindicated, continue bilateral SCDs Problem Qualifiers (1) Psoas hematoma, right, secondary to anticoagulant therapy: Qualified Codes: S30.1XXA - Contusion of abdominal wall, initial encounter (2) Atrial fibrillation: Qualified Codes: I48.1 - Persistent atrial fibrillation Miguel A Castillo MD Jan 13, 2017 10:37
--- NOTE | 2017-01-13 10:46 | HHI.DS ---
Discharge Summary Admission Date Jan 10, 2017 at 10:50 Discharge Date: Jan 13, 2017 Admitting Diagnosis psoas hematoma, hip pain, A. fib (1) Psoas hematoma, right, secondary to anticoagulant therapy ICD Code: S30.1XXA - Contusion of abdominal wall, initial encounter Status: Acute (2) Atrial fibrillation ICD Code: I48.91 - Unspecified atrial fibrillation Status: Acute (3) Benign hypertension ICD Code: I10 - Essential (primary) hypertension (4) Hyperlipidemia ICD Code: E78.5 - Hyperlipidemia, unspecified Procedures none Brief History - From Admission 76 year-old man with a history of atrial fibrillation, hyperlipidemia and hypertension was brought to the ED for evaluation of worsening symptoms of right lower extremity pain 3 days duration. Patient stated in the evening of 01/09/17 as he was watching TV he suddenly felt severe excruciating right lower extremity pain, localized and rated 10 in intensity denies any time any trauma, fall and he stated he was unable to walk and get up from a sitting position. He Had to use his 's cane to stand up. Over the following day, patient reported worsening pain. As stated earlier patient was recently discharged from [facility] after undergoing treatment for A. fib with RVR for which he was prescribed Coumadin and Lovenox bridge. Patient reports compliance with medications including this morning before coming to the ED. A CT abdomen pelvic revealing large right psoas hematoma on the right extending to the hip. Of note, a call was placed by the ED physician who discussed the case with cardiology regarding patient current need for anticoagulation as well as possible ablation. CBC/BMP: 01/12/17 0519 01/11/17 0541 Significant Findings Laboratory Tests Test 01/11/17 05:41 01/12/17 05:19 01/13/17 07:22 Red Blood Count 3.94 MIL/MM3 (4.50-5.90) 3.74 MIL/MM3 (4.50-5.90) Hemoglobin 12.9 GM/DL (13.0-17.0) 12.4 GM/DL (13.0-17.0) Hematocrit 37.6 % (39.0-51.0) 35.9 % (39.0-51.0) Platelet Count 128 TH/MM3 (150-450) 120 TH/MM3 (150-450) Neutrophils (%) (Auto) 80.4 % (16.0-70.0) 80.0 % (16.0-70.0) Lymphocytes (%) (Auto) 7.1 % (9.0-44.0) 5.1 % (9.0-44.0) Monocytes (%) (Auto) 11.9 % (0.0-8.0) 12.8 % (0.0-8.0) Lymphocytes # (Auto) 0.5 TH/MM3 (1.0-4.8) 0.4 TH/MM3 (1.0-4.8) Blood Urea Nitrogen 19 MG/DL (7-18) Random Glucose 117 MG/DL (74-106) Total Protein 6.3 GM/DL (6.4-8.2) Albumin 3.2 GM/DL (3.4-5.0) Calcium Level 8.4 MG/DL (8.5-10.1) Estimat Glomerular Filtration Rate 66 ML/MIN (>89) Prothrombin Time 29.2 SEC (9.8-11.6) 24.6 SEC (9.8-11.6) Imaging Last Impressions Abdomen/Pelvis CT 01/12/17 0000 Signed Impressions: Service Date/Time: Thursday, January 12, 2017 16:19 - CONCLUSION: 1. Interval enlargement of the right psoas retroperitoneal hematoma as detailed above. However, I do not see evidence of ongoing active hemorrhage as was present on the prior exam. 2. Small amount of hyperdense fluid is now identified in the presacral space. Again, no findings of active hemorrhage. 3. Stable 3.5 cm infrarenal abdominal aortic aneurysm. 4. Enlarged prostate. 5. 2.5 cm diverticulum at the junction of the second and third portions of the duodenum. Chi Carl MD Lumbar Spine CT 01/10/17 0000 Signed Impressions: Service Date/Time: Tuesday, January 10, 2017 08:19 - CONCLUSION: 1. Partial visualization of the right psoas muscle which is abnormal and consistent with an intramuscular hematoma. 2. Multilevel degenerative changes as detailed above. Tom Delaney Jr., MD PE at Discharge GENERAL: NAD SKIN: Warm and dry. HEAD: Normocephalic. EYES: No scleral icterus. No injection or drainage. NECK: Supple, trachea midline. No JVD or lymphadenopathy. CARDIOVASCULAR: Irregular Regular rate and rhythm without murmurs, gallops, or rubs. RESPIRATORY: Breath sounds equal bilaterally. No accessory muscle use. GASTROINTESTINAL: Abdomen soft, non-tender, nondistended. MUSCULOSKELETAL: No cyanosis, or edema. Right LLE TTP BACK: +tender without obvious deformity. No CVA tenderness. Hospital Course Patient admitted secondary to right psoas hematoma for which all oral anticoagulation were held with monitoring of H&H and INR. Orthopedic surgery was consulted. Due to patient history of paroxysmal A. fib, cardiology was consulted and it was recommended patient be on oral anticoagulation 3 weeks prior to plan cardiac ablation. Repeat CT scan of abdomen/pelvics was obtained prior to discharge. Patient was continued on treatment for other chronic medical conditions. Physical therapy was consulted. Prior to discharge, patient's condition improved and pain decreased to a level acceptable per patient. Pt Condition on Discharge: Stable Discharge Disposition: Discharge Home Discharge Time: <= 30 minutes Discharge Instructions DIET: Follow Instructions for: Heart Healthy Diet Activities you can perform: Regular-No Restrictions Follow up Referrals: Cardiology - 3 Weeks PCP Follow-up - 1 Week New Orders: PT/INR - 2-3 Days New Medications: Hydrocodone/Acetaminophen (Hydrocodone-Acetamin 5-325 mg) 5 Mg-325 Mg Tablet 1 TAB PO Q4H PRN for PAIN SCALE 3 TO 5, #20 TAB Continued Medications: Atorvastatin (Lipitor) 40 Mg Tab 40 MG PO HS for Cholesterol Management, #30 TAB 0 Refills Cyanocobalamin (Vitamin B-12) 250 Mcg Lozg 250 MCG BUCCAL DAILY for Nutritional Supplement, #1 BOTTLE 0 Refills Digoxin (Digoxin) 0.125 Mg Tab 0.125 MG PO DAILY for Regulate Heart Beat, #30 TAB 0 Refills Diltiazem ER 24 HR (Diltiazem ER 24 HR) 240 Mg Amanda 240 MG PO DAILY, #30 TAB 0 Refills Lisinopril (Lisinopril) 10 Mg Tab 5 MG PO DAILY for Blood Pressure Management, #30 TAB Metoprolol Succinate ER 24 HR (Metoprolol Succinate ER 24 HR) 100 Mg Tab 100 MG PO BID, #30 TAB 0 Refills Omeprazole (Omeprazole) 20 Mg Tab 20 MG PO DAILY, #30 TAB 0 Refills Tamsulosin (Tamsulosin) 0.4 Mg Cap 0.4 MG PO HS for Manage Prostate Problems, #30 CAP 0 Refills Warfarin (Warfarin) 1 Mg Tab 1.5 MG PO DAILY for Blood Clot Prevention, #30 TAB 0 Refills Discontinued Medications: Enoxaparin Inj (Lovenox Inj) 80 mg/0.8 ML Syr 80 MG SQ Q12H for Prevent Blood Clot, #14 INJECTION dc when INR > 2 Miguel A Castillo MD Jan 13, 2017 10:46
[2017-01-13] MEDS ORDERED: HYDR-3516 PO (10:48)
[2017-01-13] MEDS ORDERED: PILL SPLITTER OTHER PRN (11:00)
[2017-01-13] MEDS ORDERED: WARFARIN SOD 1 MG TAB PO SCH (16:00)
== END 2017-01-13 12:48 | disposition home or self-care (01) | DRG 556 ==
LOC: PHED 07:04 → PHEDA 10:50 → HCIS 16:07
PROVIDERS: ADMIT Hospitalist; ATTEND Hospitalist
DX: M79.81 Nontraumatic hematoma of soft tissue (principal); I48.0 Paroxysmal atrial fibrillation; T45.515A Adverse effect of anticoagulants, initial encounter; I10 Essential (primary) hypertension; M54.32 Sciatica, left side; F41.9 Anxiety disorder, unspecified; E78.5 Hyperlipidemia, unspecified; Z79.01 Long term (current) use of anticoagulants; Z86.73 Personal history of transient ischemic attack (TIA), and cerebral infarction without residual deficits; Z88.7 Allergy status to serum and vaccine
CPT/HCPCS: 72131; 74177; 80048; 80053; 85025; 85610; 86850; 86900; 86901; 94620; 96372; J0171; J0461; J1885; J2270; J2360; J2405; Q9967

== ENCOUNTER 2017-03-22 06:02 | Day surgery (SDC) | payer OTHER ==
[~2017-03-22] VITALS: Ht 170.2 cm; Wt 81.9 kg
[2017-03-22] VITALS (7 sets, daily range): BP systolic 119–161; BP diastolic 68–112; PULSE 57–80; RESP 16–18; TEMP 97.8–98.3; O2SAT 92–98
[~2017-03-22 06:02] MED LIST changes: -ENOX80P SQ; +HYDR-3516 PO
[2017-03-22] MEDS ORDERED: SODIUM CHLORID 0.9% 500 ML IV PRN (06:30)
[2017-03-22] MEDS ORDERED: LACTATED RINGER'S 1000 ML IV PRN (06:30)
[2017-03-22] MEDS ORDERED: LORazepam 1 MG TAB SL SCH (06:30)
[2017-03-22] MEDS ORDERED: POVIDONE IODINE 5% (ANTISEPSIS KIT) 4 APPLICATIONS EACH NARE PRN (06:30)
[2017-03-22] MEDS ORDERED: CHLORHEXIDINE GLUCONATE 2 % 1 PACK (2 CLOTHS) TOPICAL PRN (06:30)
[2017-03-22] MEDS ORDERED: SODIUM CHLORID 0.9% 500 ML INJ 500 ML IV SCH (06:30)
[2017-03-22] MEDS ORDERED: METOPROLOL TARTRATE 25 MG TAB PO PRN (06:30)
[2017-03-22] MEDS ORDERED: LISI20TA3 PO (07:00)
[2017-03-22] MEDS ORDERED: CHOL5000 PO (07:00)
[2017-03-22] MEDS ORDERED: magnesium PO (07:00)
[2017-03-22] MEDS ORDERED: APIX2.5T PO (07:00)
[2017-03-22] MEDS ORDERED: DILT-8 PO (07:00)
[2017-03-22] MEDS ORDERED: HYDR12.57 PO (07:00)
[2017-03-22 07:01] LABS: BASOPHIL % 0.7 % (0.0-2.0); EOSINOPHIL # 0.2 TH/MM3 (0-0.4); EOSINOPHIL % 3.4 % (0.0-4.0); HEMATOCRIT 44.8 % (39.0-51.0); HEMOGLOBIN 15.5 GM/DL (13.0-17.0); LYMPH % 8.8 % (9.0-44.0); LYMPHOCYTE # 0.5 TH/MM3 (1.0-4.8); MEAN CELL VOLUME 95.2 FL (80.0-100.0); MEAN CORPUSCULAR HGB CONC 34.6 % (32.0-36.0); MEAN PLATELET VOLUME 9.3 FL (7.0-11.0); MONO % 11.5 % (0.0-8.0); MONOCYTE # 0.6 TH/MM3 (0-0.9); NEUT % 75.6 % (16.0-70.0); PLATELET COUNT 138 TH/MM3 (150-450); RED BLOOD COUNT 4.71 MIL/MM3 (4.50-5.90); RED CELL DISTRIBUTION WIDTH 13.8 % (11.6-17.2); WHITE BLOOD COUNT 5.3 TH/MM3 (4.0-11.0)
[2017-03-22] MEDS ORDERED: METO1TAB9 PO (07:02)
[2017-03-22 07:10] LABS: INTERNATIONAL NORMALIZED RATIO 1.2 RATIO; PROTHROMBIN TIME - PATIENT 12.4 SEC (9.8-11.6)
[2017-03-22 07:18] LABS: BICARBONATE 28.5 MEQ/L (21.0-32.0); CALCIUM 8.7 MG/DL (8.5-10.1); CREATININE 0.96 MG/DL (0.60-1.30)
[2017-03-22] MEDS ORDERED: LEVOFLOXACIN 500 MG PREMIX INJ 100 ML IV ONE (10:15)
[2017-03-22] MEDS ORDERED: PROTAMINE SULFATE 50 MG/5 ML VIAL ONE (10:20)
[2017-03-22] MEDS ORDERED: HEPARIN-D5W 25,000 U/250 ML 250 ML ONE (10:20)
[2017-03-22] MEDS ORDERED: ISOPROTERENOL HCL 1 MG/5 ML AMP ONE (10:20)
[2017-03-22] MEDS ORDERED: HEPARIN SODIUM - IV 10,000 UNITS/10 ML VIAL ONE (10:20)
[2017-03-22] MEDS ORDERED: HEPARIN-NS/PF FLUSH BAG 1,000 ML IV FLUSH ONE (10:28)
[2017-03-22] MEDS ORDERED: NEOSTIGMINE 5 MG/5 ML SYRINGE IV PUSH ONE (12:00)
[2017-03-22] MEDS ORDERED: ePHEDrine/NS 25 MG/5 ML SYRINGE IV ONE (12:00)
[2017-03-22] MEDS ORDERED: PROPOFOL 200 MG/20 ML AMP IV ONE (12:00)
[2017-03-22] MEDS ORDERED: ONDANSETRON HCL 4 MG/2 ML VIAL IV ONE (12:00)
[2017-03-22] MEDS ORDERED: ROCURONIUM INJ 50 MG/5 ML SYRINGE IV PUSH ONE (12:00)
[2017-03-22] MEDS ORDERED: DEXAMETHASONE SOD PHOS 4 MG/ML VIAL IV ONE (12:00)
[2017-03-22] MEDS ORDERED: PHENYLEPH/NS 1000 MCG/10 ML SYR IV ONE (12:00)
[2017-03-22] MEDS ORDERED: LIDOCAINE HCL 1% PF 5 ML SYRINGE OTHER ONE (12:00)
[2017-03-22] MEDS ORDERED: GLYCOPYRROLATE 1 MG/5 ML SYRINGE IV PUSH ONE (12:00)
[2017-03-22] MEDS ORDERED: RESP: ALBUTEROL 2.5 MG/3 ML NEB (SCH) ONE (12:58)
[2017-03-22] MEDS ORDERED: DO NOT ADM ANY ANTICOAGULANT DRUGS PRN (13:15)
--- NOTE | 2017-03-22 13:16 | CATHPROC ---
Patient Name: ARTI REECE Study #: [id number] Initial MD: King Kong Date of : 1940 Study Date: 03/22/2017 Cardiac Catheterization Report 03/22/2017 1:16:12 PM Financial #: [id number] 1 of 10 Patient Name: ARTI REECE Study #: [id number] Initial MD: King Kong Date of : 1940 Study Date: 03/22/2017 Entire Case Report Patient Information Patient Name ARTI REECE Date of 1940 Age 76 years Financial # [id number] Gender M AlternateID Lab Number 2 Room Number DC06 Height (in) 68.0 Height (cm) 172.7 BSA 1.96 Weight (lbs) 180.4 Weight (kg) 82.0 Patient Address/Phone Number Home Address [facility] Home Phone Number [address] [facility] [address] Study Information Study Number Admission Scheduled Start Study Start [id number] Mar 22 2017 6:02AM 03/22/2017 Mar 22 2017 6:48AM [place] [facility] Electrophysiology Study Admit Source Facility Department Other [facility] - Foil Stamp Operator Physician and Clinical Staff Initial King Atkinson Sunglass Clip Attacher Katiuska Ross,RT(R) TECH2 Sunglass Clip Attacher Sowmya Guerrero,RETAIL STORE ASSISTANT Other Anesthesia, HIV CTS SPECIALIST Recorder Hortencia Soni,CUATE Recorder Aruna Chew,CUATE Scrub Tara Leach,COMMUNITY SUPPORT ASSOCIATE TECH2 Procedures Performed Procedure Location (Site) Vessel Name Ablation Procedure Cardioversion ICE CATHETER INSERT Fem Vein (left) Femoral Vein RF Ablation LT. ATRIUM LT. ATRIUM 03/22/2017 1:16:12 PM Financial #: [id number] 2 of 10 Patient Name: ARTI REECE Study #: [id number] Initial MD: King Kong Date of : 1940 Study Date: 03/22/2017 Equipment Time Material Requirements Worker Description Size Mfg Part Number Used/Scraped NEEDLE, TRANSSEPTAL NRG 98 [id number] 09:40 [facility] Used C1 *[id number] [employer]/ EP [id number] 09:40 KIT, TRANSDUCER / AFIB Used PACER *[id number] CATHETER, TACTICATH ABLAT BUNDLE 09:40 BUNDLE-ST. REN Used 65 BUNDLE *[id number]- BUNDLE [id number] CATHETER, FR7 OPTIMA SPIRAL 09:40 BUNDLE-ST. REN FR7 *[id number]- Used BUNDLE BUNDLE [id number] 09:40 BUNDLE-ST. REN CATHETER, JSN, QUAD BUNDLE FR 5 *[id number]- Used BUNDLE [id number] 09:40 BUNDLE-ST. REN CATHETER, JSN, QUAD BUNDLE FR 5 *[id number]- Used BUNDLE [id number] SET, COOL POINT TUBING 09:40 BUNDLE-ST. REN *[id number]- Used BUNDLE BUNDLE SHEATH, FR8.5 STEERABLE SM 09:40 BUNDLE-ST. REN 71CM [id number] Used 71CM BUNDLE COVER, TRANSDUCER CABLE 612-113 09:40 [employer] Used ACUNAV *[id number] 09:40 CORDIS/PACER SHEATH, FR10 JOSÉ 11CM FR 10 Used *[id number] 10:33 CORDIS/PACER SHEATH, FR10 JOSÉ 11CM FR 10 Used *[id number] 09:40 [employer] INDUSTRIES PACK, CCL CUSTOM * Used *[id number] 09:40 [employer] PACER JOSHI, LIMB * 2530 *[id number] Used [id number] 09:40 [employer] MEDICAL SHEATH, FR4.5 PRELUDE 11CM FR 4.5 Used [id number] 09:40 NAMIC TUBING, HIGH PRESSURE 48" 48" Used *2730096 [id number] 09:40 NAMIC TUBING, HIGH PRESSURE 48" 48" Used *[id number] [id number] 09:40 [employer] BL[employer]ET,WARM AIR CCL * Used *[id number] [id number] 09:40 ST. REN MEDICAL ELECTRODE KIT, MIRNA X SURFACE * Used *[id number] 173391 09:40 ST. REN MEDICAL SHEATH, EPS, FR6 FAST CATH FR 6 Used *[id number] 09:40 ST. REN MEDICAL SHEATH, EPS, FR7 FAST CATH FR 7 [id number] Used 620802 09:40 [facility]. REN MEDICAL SHEATH, EPS, FR8 FAST CATH FR 8 Used *[id number] CATHETER, ACUNAV FR10 ICE [id number] 11:18 BEVERLEY FR 10 Used (BEVERLEY) *[id number] [facility] PAD, ELECTROSURGICAL 09:40 * [id number] *[id number] Used SURGICAL GROUNDING (BLUE) 03/22/2017 1:16:12 PM Financial #: [id number] 3 of Patient Name: ARTI REECE Study #: [id number] Initial MD: King Kong Date of : 1940 Study Date: 03/22/2017 Insurance Information Insurance Payor Private Health Insurance Third Libertarian Third Libertarian Number HUMANA GOLD PLUS O [facility] History: Allergies Allergy Reaction No Known Allergies Numbness PNEUMONIA VACCINE Numbness pneumococcal vaccine Numbness isosorbide History: Risk Factors Hypertension Dyslipidemia Yes Yes Cerebrovascular Disease Labs Hgb (g/dl) Hct (%) RBC (MIL/MM3) WBC (l/cumm) Platelets (thousands) 11.60-17.00 35.00-51.00 4.00-5.90 4.00-11.00 150.00-450.00 15.0 44 4.7 5.3 138 Glucose (mg/dl) BUN (mg/dl) Creatinine (mg/dl) BUN:Creatinine (1:x) 74.00-106.00 7.00-18.00 0.50-1.30 10.00-20.00 115 15 0.9 16.7 Na (meq/l) K (meq/l) 136.00-145.00 3.50-5.10 143 3.5 INR (PTT:PT) 0.90-1.10 1.2 Medication 03/22/2017 1:16:12 PM Financial #: [id number] 4 of Patient Name: ARTI REECE Study #: [id number] Initial MD: King Kong Date of : 1940 Study Date: 03/22/2017 Medication Total Dose (Bolus/Oral) Medication Total Dosage/Unit 1% XYLOCAINE 40 mL HEPARIN 70010 units LASIX 40 mg PROTAMINE 40 mg Medications (Bolus/Oral) Medication Time Given Dosage/Unit Administered By Reason 1% XYLOCAINE 03/22/2017 11:07:36 AM 20 mL King Kong 20 mL 1% XYLOCAINE given in lab by King Kong in Left Groin via Subcutaneous. Ordered by Hussain Kong 1% XYLOCAINE 03/22/2017 11:12:41 AM 20 mL King Kong 20 mL 1% XYLOCAINE given in lab by King Kong in Right Groin via Subcutaneous. Ordered by Uyen Kong. HEPARIN 03/22/2017 11:19:32 AM 29175 units Anesthesia, HIV CTS SPECIALIST As per physicians v erbal order 54825 units HEPARIN given in lab by Anesthesia, HIV CTS SPECIALIST via Peripheral IV. Ordered by King Kong. Daisha son: As per physicians verbal order. HEPARIN 03/22/2017 11:33:01 AM 4000 units Anesthesia, HIV CTS SPECIALIST As per physicians ve rbal order 4000 units HEPARIN given in lab by Anesthesia, HIV CTS SPECIALIST via Peripheral IV. Ordered by King Kong. Reas on: As per physicians verbal order. LASIX 03/22/2017 12:41:00 PM 40 mg Anesthesia, HIV CTS SPECIALIST As per physicians verba l order 40 mg LASIX given in lab by Anesthesia, HIV CTS SPECIALIST via Peripheral IV. Ordered by King Kong. Reason: As per physicians verbal order. PROTAMINE 03/22/2017 12:43:00 PM 40 mg Anesthesia, HIV CTS SPECIALIST As per physicians barbara bal order 40 mg PROTAMINE given in lab by Anesthesia, HIV CTS SPECIALIST via Peripheral IV. Ordered by King Kong. Reason: As per physicians verbal order. Medication (Drip) Medication Time Given Dosage/Unit Concentration/Unit Diluent (ml) Solution HEPARIN DRIP 03/22/2017 11:35:32 AM 1000 units/hr 96978 units 250 D5W 1000 units/hr HEPARIN DRIP given in lab by Anesthesia, HIV CTS SPECIALIST via Peripheral IV. Pump/Drip Flow = 10 ml /hr using [place] [address] units in 250 ml. Ordered by King Kong. Reason: As per physicians verbal order. ISUPREL 03/22/2017 12:24:03 PM 10 mcg/min 1 mg 250 NaCl .9 10 mcg/min ISUPREL given in lab by Anesthesia, HIV CTS SPECIALIST via Peripheral IV. Pump/Drip Flow = 150 ml/hr usi ng NaCl .9 with a concentration of 1 mg in 250 ml. Ordered by King Kong. Reason: As per physicians verbal order. LEVAQUIN 03/22/2017 10:50:00 AM 100 mL/hr 500 100 NaCl .9 100 mL/hr LEVAQUIN given in lab by Anesthesia, HIV CTS SPECIALIST via Peripheral IV. Pump/Drip Flow = 0 ml/hr using NaCl .9 with a concentration of 500 in 100 ml. Ordered by King Kong. Reason: As per physicians verbal order. 03/22/2017 1:16:12 PM Financial #: [id number] 5 of 10 Patient Name: ARTI REECE Study #: [id number] Initial MD: King Kong Date of : 1940 Study Date: 03/22/2017 Initial Case Assessment Cardiovascular HR Rhythm NIBP Chest Pain 111 AF 170/103 0 Edema Present Skin color Skin None Normal Warm Dry Circulatory - Right Pulses Dorsalis Pedis 1 Scale (0,1,2,3,4,d) Circulatory - Left Pulses Dorsalis Pedis 1 Scale (0,1,2,3,4,d) Circulatory - Lower Extremities Color Lower Right Color Lower Left Normal Normal Neurological State Oriented to time-place- Alert Moves all extremities person Respiration - General Respiration Rate SpO2 (%) (B/min) 20 98 Final Case Assessment Cardiovascular HR Rhythm 77 sr Neurological State Oriented to time-place- Drowsy Moves all extremities person Comment: waking up from general anesthesia Respiration - General Respiration Rate SpO2 (%) O2 (lpm) (B/min) 17 95 10 03/22/2017 1:16:12 PM Financial #: [id number] 6 of 10 Patient Name: ARTI REECE Study #: [id number] Initial MD: King Kong Date of : 1940 Study Date: 03/22/2017 Chronological Log Time Study Chronological Log 10:04:32 Patient arrived via Bed. 10:04:32 Patient Name, D.O.B, / Armband Verified By R.N. 10:04:33 Consent signed by the physician and the patient and verified by the Foil Stamp Operator staff. 10:04:34 Pre-op and post- op instructions given; patient acknowledges understanding of instructions. 10:04:36 Verbal Stimulation=2 Physical Stimulation=2 Airway=2 Respiration=2 TOTAL=8. (0=absent, 1=li mited, 2=present) 10:04:47 Patient has been NPO for More than 6Hrs. 10:04:48 Skin Breakdown- none per pt 10:04:54 Patient Warmer Placed on the Table. 10:04:54 Disposable Defibrillator Pads Placed On Patient. 10:04:56 Bar Prominences Protected 10:04:57 A # 20 IV was noted in the Forearm (right). Grade = 0 0.9ns kvo 10:04:59 A # 20 IV was noted in the Antecubital (left). Grade = 0 0.9ns kvo 10:05:23 History and physical on the chart. 10:13:02 Anesthesia at bedside. Assumes care of patient. 10:13:04 Table restraints applied according to hospital policy Assessment: Initial Case, PQ=311 BPM, Rhythm=AF, KAFW=742/103 mmhg, Chest Pain=0, Edema=None, Color=Normal, Skin = Warm, Dry Right Pulses: Azeem Ped=1 Left Pulses: Azeem Ped=1 10:14:03 Lower Right Extremities: Color=Normal Lower Left Extremities: Color=Normal Neurological: State=Alert, Ox3, PATEL Respiration: Resp=20 B/min, SpO2=98 % 10:29:15 Reference ECG taken 10:41:[address] Cerna here for intubation. A 14 FR light catheter was inserted aseptically with clear ye llow urine returns; bag to 10:41:12 bedside drainage. 10:46:21 Groins prepped with 2% chlorhexidine. 100 mL/hr LEVAQUIN given in lab by Anesthesia, HIV CTS SPECIALIST via Peripheral IV. Pump/Drip Flow = 0 ml/hr using NaCl .9 with 10:50:00 a concentration of 500 in 100 ml. Ordered by King Kong. Reason: As per physicians verbal or kassy. 10:50:49 A sterile drape was applied after a 3 min. waiting time. Time Out. Correct patient, procedure, procedure equipment, site and side verified with physicia n present. Time 11:03:48 concurred by MD, individual staff and HIV CTS SPECIALIST. Time Out #2 - Consents verified, patient in correct position, all results are labled and displa yed, safety precautions 11:04:52 taken, antibiotics administered. Time out concurred by MD, individual staff and HIV CTS SPECIALIST in procedu re 11:04:53 Case Start 11:04:55 DALTON in progress. 11:06:10 DALTON complete. Beginning to EPS. 11:07:36 20 mL 1% XYLOCAINE given in lab by King Kong in Left Groin via Subcutaneous. Ordered by King Kong. 11:08:48 Vascular access was obtained in the Fem Art (left). 03/22/2017 1:16:12 PM Financial #: [id number] Patient Name: ARTI REECE Study #: [id number] Initial MD: King Kong Date of : 1940 Study Date: 03/22/2017 11:08:50 A SHEATH, FR4.5 PRELUDE 11CM FR 4.5 was advanced into the Fem Art (left) using the Modified Seldinger technique. 11:09:04 Vascular access was obtained in the Fem Vein (left). 11:09:18 A SHEATH, EPS, FR6 FAST CATH FR 6 was advanced into the Fem Vein (left) using the Modified Seldinger technique. 11:10:12 Vascular access was obtained in the Fem Vein (left). 11:10:34 A SHEATH, EPS, FR7 FAST CATH FR 7 was advanced into the Fem Vein (left) using the Modified Seldinger technique. 11:12:28 Vascular access was obtained in the Fem Vein (left). 11:12:30 A SHEATH, FR10 JOSÉ 11CM FR 10 was advanced into the Fem Vein (left) using the Modified S eldinger technique. 11:12:41 20 mL 1% XYLOCAINE given in lab by King Kong in Right Groin via Subcutaneous. Ordered b King Hoffmann. 11:12:43 Vascular access was obtained in the Fem Vein (right). 11:12:56 A SHEATH, EPS, FR8 FAST CATH FR 8 was advanced into the Fem Vein (right) using the Modified Seldinger technique. A CATHETER, JSN, QUAD BUNDLE FR 5 was advanced vis Fem Vein (left) and placed in the CS. Placem ent was visually 11:12:59 confirmed under fluoroscopy. A CATHETER, JSN, QUAD BUNDLE FR 5 was advanced vis Fem Vein (left) and placed in the HIS. Place ment was 11:13:55 visually confirmed under fluoroscopy. 11:16:05 CATHETER, ACUNAV FR10 ICE ([employer]) FR 10 Was Postioned. A SHEATH, FR8.5 STEERABLE SM 71CM BUNDLE 71CM was exchanged in the Fem Vein (right). This was n ecessary in 11:17:33 order for catheter support. 11:19:09 Windsor in 8fr steerable sheath rt femoral vein. 11:19:27 A eps was advanced to the right atrium and passed through the septal wall to the left atriu m. 05989 units HEPARIN given in lab by Anesthesia, HIV CTS SPECIALIST via Peripheral IV. Ordered by Clementina Kong Reason: As per 11:19:32 physicians verbal order. 11:20:10 Windsor needle out. A CATHETER, FR7 OPTIMA SPIRAL BUNDLE FR7 was advanced vis Fem Vein (right) and placed in the LA . Placement 11:21:08 was visually confirmed under fluoroscopy. 11:21:15 Mapping in progress. 11:22:00 temp 36.3 11:27:22 Activated Clotting Time Drawn 11:28:12 Mapping complete. Mapping catheter out. A CATHETER, TACTICATH ABLAT 65 BUNDLE was advanced vis Fem Vein (right) and placed in the LA. P lacement was 11:29:00 visually confirmed under fluoroscopy. 11:31:00 RF Ablation of the LT. ATRIUM with a CATHETER, TACTICATH ABLAT 65 BUNDLE. 11:32:43 ACT (Normal Range 90-180) = 257 4000 units HEPARIN given in lab by Anesthesia, HIV CTS SPECIALIST via Peripheral IV. Ordered by King Kong Reason: As per 11:33:01 physicians verbal order. 1000 units/hr HEPARIN DRIP given in lab by Anesthesia, HIV CTS SPECIALIST via Peripheral IV. Pump/Drip Flow = 10 ml/hr using 11:35:32 D5[place] [address] units in 250 ml. Ordered by Hanscy. Luann Reason: As per phcan sicians verbal order. 11:39:45 Activated Clotting Time Drawn 11:47:36 ACT (Normal Range 90-180) = 358 12:16:54 Ablation catheter out. 12:18:18 ECG rhythm of AF noted. Patient cardioverted at 300 joules. Success 12:23:21 Activated Clotting Time Drawn 10 mcg/min ISUPREL given in lab by Anesthesia, HIV CTS SPECIALIST via Peripheral IV. Pump/Drip Flow = 150 ml/ hr using NaCl .9 12:24:03 with a concentration of 1 mg in 250 ml. Ordered by King Kong. Reason: As per physicians barbara bal order. 03/22/2017 1:16:12 PM Financial #: [id number] 8 of 10 Patient Name: ARTI REECE Study #: [id number] Initial MD: King Kong Date of : 1940 Study Date: 03/22/2017 12:27:24 ACT (Normal Range 90-180) = 335 12:34:51 Isuprel off. 12:35:03 Ablation procedure performed: AFIB. 12:35:08 EP Procedure was performed. 12:39:16 All Catheter(s) removed without difficulty A SHEATH, FR10 JOSÉ 11CM FR 10 was exchanged in the Fem Vein (right). This was necessary in order to minimize 12:39:20 site leakage. 12:39:33 Sheath(s) left in place, secured, 0.9na kvo connected and will be removed in Holding Area 12:39:52 PACU called. Spoke to Katiuska. 12:40:08 Bedside Report will be given. 12:40:56 Sterile dressing applied to site 40 mg LASIX given in lab by Anesthesia, HIV CTS SPECIALIST via Peripheral IV. Ordered by King Kong. Reas on: As per physicians 12:41:00 verbal order. 40 mg PROTAMINE given in lab by Anesthesia, HIV CTS SPECIALIST via Peripheral IV. Ordered by King Kong. Reason: As per 12:43:00 physicians verbal order. 12:44:00 Case End 12:50:11 Pt extubated to supplemental O2 mask. 12:53:29 Activated Clotting Time Drawn 12:56:31 ACT (Normal Range 90-180) = 142 13:04:12 No case complications noted. 13:04:14 Cine recording checked. 13:04:20 Patient moved to bed Assessment: Final Case, HR=77 BPM, Rhythm=sr 13:04:54 Neurological: State=Drowsy, Ox3, PATEL, Comment=waking up from general anesthesia Respiration: Resp=17 B/min, SpO2=95 %, O2=10 lpm 13:06:30 Defibrillator and ground pads removed. Skin intact. 13:09:27 Patient transported to PACU. End Study - Contrast Media Used In Study Contrast Total Opened (mL) Total Used (mL) Total Wasted (mL) Unspecified 0 0 0 End Study - Maximum Contrast Load Max Contrast Load (mL) 455.6 03/22/2017 1:16:12 PM Financial #: [id number] Patient Name: ARTI REECE Study #: [id number] Initial MD: King Kong Date of : 1940 Study Date: 03/22/2017 End Study - Radiation Exposure Fluoro Time (minutes) 1.3 End Study - Patient Disposition Complications Transferred To Interventional Outcome No Telemetry Bed successful 03/22/2017 1:16:12 PM Financial #: [id number]
[2017-03-22] MEDS ORDERED: ATROPINE SULFATE 1 MG/ML VIAL IV PUSH PRN (13:45)
[2017-03-22] MEDS ORDERED: ONDANSETRON HCL 4 MG/2 ML VIAL IV PUSH PRN (13:45)
[2017-03-22] MEDS ORDERED: oxyCODONE/ACETAMINOPHEN 5 MG/325 MG TAB PO PRN ×2 (13:45)
[2017-03-22] MEDS ORDERED: SODIUM CHLOR 0.9% 250 ML INJ 250 ML IV PRN (13:45)
[2017-03-22] MEDS ORDERED: BACITRACIN OINT 0.9 GM PKT TOP ONE (13:45)
[2017-03-22] MEDS ORDERED: LIDOCAINE HCL 1% 30 ML VIAL INFIL PRN (13:45)
[2017-03-22] MEDS ORDERED: LORazepam 2 MG/ML VIAL IV PUSH PRN (13:45)
[2017-03-22] MEDS ORDERED: PILL SPLITTER OTHER PRN (14:00)
[2017-03-22] MEDS: AMIODARONE 200 MG TAB PO SCH ×2 (14:36→21:16)
[2017-03-22] MEDS ORDERED: *ONDANSETRON 4 MG VIAL PERIprocedural Use ONLY ONE (15:44)
--- NOTE | 2017-03-22 15:49 | EKG ---
Date Performed: 03/22/2017 Time Performed: 07:03:34 PTAGE: 76 years EKG: Atrial fibrillation. Possible left anterior fascicular block Incomplete RBBB Possible anter ior infarct - age undetermined Inferior/lateral ST-T changes are nonspecific Abnormal ECG Since the p rior tracing, there has been no significant change PREVIOUS TRACING : 01/05/2017 13.07 DOCTOR: Joni Mcintyre Interpretating Date/Time 03/22/2017 15:48:57
[2017-03-22] MEDS ORDERED: *morphine SULFATE 4 MG/ML PERIprocedure ONLY ONE (17:11)
[2017-03-22] MEDS ORDERED: ATORVASTATIN 40 MG TAB PO SCH (21:00)
[2017-03-22] MEDS ORDERED: TAMSULOSIN HCL 0.4 MG CAP PO SCH (21:00)
[2017-03-22] MEDS: APIXABAN 2.5 MG TABLET PO SCH (22:45)
[2017-03-23] VITALS (9 sets, daily range): BP systolic 136–141; BP diastolic 79–81; PULSE 56–89; RESP 16–18; TEMP 97.4–98.2; O2SAT 93–98
[2017-03-23 04:57] LABS: INTERNATIONAL NORMALIZED RATIO 1.3 RATIO; PROTHROMBIN TIME - PATIENT 12.7 SEC (9.8-11.6)
[2017-03-23] MEDS: APIXABAN 2.5 MG TABLET PO SCH (08:46)
[2017-03-23] MEDS: AMIODARONE 200 MG TAB PO SCH (08:47)
[2017-03-23] MEDS ORDERED: METOPROLOL SUCCINATE 50 MG EXTENDED RELEASE TAB PO SCH (09:00)
[2017-03-23] MEDS ORDERED: NON-FORMULARY DRUG (Lisinopril-Hctz 1 TAB) PO SCH (09:00)
[2017-03-23] MEDS ORDERED: CHOLECALCIFEROL (VIT D3) 5000 UNIT CAP PO SCH (09:00)
[2017-03-23] MEDS ORDERED: CYANOCOBALAMIN 100 MCG TAB PO SCH (09:00)
[2017-03-23] MEDS ORDERED: PANTOPRAZOLE SOD 20 MG DELAYED RELEASE TAB PO SCH (09:00)
[2017-03-23] MEDS ORDERED: HYDROCHLOROTHIAZIDE 25 MG TAB PO SCH (09:00)
[2017-03-23] MEDS ORDERED: LISINOPRIL 20 MG TAB PO SCH (09:00)
--- NOTE | 2017-03-23 10:16 | PD.CARD ---
Atrial Fibrillation Ablation PROCEDURE DATE: Mar 22, 2017 PROCEDURES PERFORMED: 1. Electrophysiology study on Isuprel infusion 2. CS cannulation 3. 3-D mapping 4. Transseptal approach 5. Right and left heart catheterization 6. Intracardiac echo 7. Radiofrequency ablation of atrial fibrillation 8. Pulmonary vein isolation 9. Posterior wall ablation 10. Mitral valve isolation 11. Mitral line creation 12. Left atrial tachycardia ablation 13. Roof line creation 14. Floor line creation 15. Anterior wall ablation 16. Cardioversion INDICATIONS FOR THE PROCEDURE Mr. Shrestha is a 76-year-old male with atrial fibrillation, very symptomatic, on anticoagulation referred for electrophysiology study and ablation. The risks, the nature and the benefits of the procedure were clearly stated to him. The risks include pneumothorax, cardiac perforation, stroke, need for open heart surgery and even . The patient understood and agreed to proceed. DESCRIPTION OF THE PROCEDURE IN DETAIL As written informed consent was obtained prior to esophageal echocardiogram, the patient was kept on the table where he was prepped and draped in the usual sterile fashion. Conscious sedation was initiated and maintained throughout the procedure by the anesthesiologist. Once sedation was verified, the right and left inguinal areas were anesthetized with 2% Xylocaine. Using modified Seldinger technique, the left femoral vein was cannulated on three occasions, three guidewires were advanced. Over the wire a 6, 7 and a 10-Lebanese Hemaquet were advanced. Then the left femoral artery was cannulated on one occasion, one guidewire was advanced. Over the wire a 4-Lebanese Hemaquet was advanced. Then the right femoral vein was cannulated on one occasion, one guidewire was advanced. Over the wire a 8-Lebanese Hemaquet was advanced. Then under fluoroscopic guidance through the 6 and 7-Lebanese Hemaquet, two 5-Lebanese Breana curved quadripolar electrophysiology catheters were advanced and placed around the His as well as coronary sinus. Basic interval was measured. The patient was in atrial fibrillation. Through the 10-Lebanese Hemaquet, a [employer] AcuNav intracardiac echo catheter was advanced and placed at the right atrium. Multiple view was obtained. There was no pericardial effusion, pulmonary vein was seen, atrial septal was visualized. Then the 8-Lebanese Hemaquet in the right femoral vein was exchanged for [employer] transseptal sheath that was placed all the way to the superior vena cava. Through the sheath a Cooper needle was advanced, then the sheath, the dilator and the needle were progressed until foci engaged. Once engaged, the needle was advanced. RF was delivered for 2 seconds. I was able to cross into the left atrium. Once the needle crossed, the dilator was advanced. Once the dilator crossed, the sheath was advanced. Once the sheath crossed, the dilator and the needle were removed. At this point I did flood the system and fluid movement was seen in the left atrium the indicates the sheath is in good position. The patient already received 10,000 units of heparin. The goal is to keep an ACT around 350 during ablation. Then through the sheath a St. Jovanny 20 pulse circumferential catheter was advanced. Using Zoodak endocardial solution mapping system, a two-dimensional configuration of the left atrium was obtained. Points were taken at the left superior and inferior veins, right superior and inferior veins, mitral valve, and appendages. Then through the sheath a St. Jovanny TactiCath 65cm 3.5mm irrigated tipped mapping and radiofrequency ablation catheter was advanced. Esophageal probe was placed temperature monitoring during ablation. When it increased to 0.5 degrees Celsius above baseline, I moved to a different area of the atrium. First I did isolate the left superior and inferior vein. I did make a big [place] around the veins. Posterior was ablated. Then a roof line was created, a floor line was created, a mitral line was isolated, then the mitral valve was isolated. At that point the patient was in left atrial tachycardia. I did create a line from the floor to the roof area, passing by the left atrial appendage. Then the right superior and inferior veins were isolated. I did remap the atrium. There is no significant signal in the atrium. At this point I decided to proceed with cardioversion. A 200 sync biphasic joule was delivered that converted the patient into sinus rhythm. At that point I did advance the circumferential catheter again into the vein. There was no signal into the vein, pacing from the vein showed no conduction to the atrium. Isuprel infusion was initiated at 10 mcg for 15 minutes. No tachyarrhythmia was induced, post Isuprel no tachyarrhythmia was induced. At that point the procedure was complete. All catheters were removed, atrial septal sheath was exchanged for 9-Lebanese Hemaquet, intracardiac echo showed no pericardial effusion. There is still good flow in the pulmonary vein. The patient is going to be transferred to the recovery room. No incident report. The patient tolerated the procedure. Blood loss was minimal. FINDINGS 1. Electrocardiogram: At baseline the patient was in atrial fibrillation, post procedure the patient was in sinus rhythm. 2. Basic interval: Base cycle length was around 520. Post ablation she was around 1020 milliseconds. AH at 100 and HV at 60 milliseconds. 3. Tachyarrhythmia: Atrial fibrillation was mapped and ablated. Atrial tachycardia was ablated. The ablation was successful. CONCLUSION Successful electrophysiology study, mapping, radiofrequency ablation of atrial fibrillation, left atrial tachycardia, pulmonary vein isolation, posterior ablation, mitral valve isolation, mitral line creation, roof line creation, floor line creation, left atrial tachycardia, and cardioversion. COMMENTS AND RECOMMENDATIONS The patient is going to be transferred to the telemetry unit. Will be observed and when stable can be discharged home. King Kong MD Mar 23, 2017 10:16
--- NOTE | 2017-03-23 10:19 | HHI.PR ---
Subjective Remarks Doing better Objective Vital Signs Date Time Temp Pulse Resp B/P (MAP) Pulse Ox O2 Delivery O2 Flow Rate FiO2 03/23/17 07:20 62 03/23/17 07:20 97.4 62 18 141/81 (101) 98 03/23/17 06:22 56 03/23/17 05:06 59 03/23/17 04:32 59 03/23/17 03:57 98.2 89 16 136/79 (98) 93 03/23/17 03:39 62 03/23/17 02:32 56 03/23/17 01:17 60 03/23/17 00:03 59 03/22/17 23:43 98.0 60 18 119/68 (85) 92 03/22/17 23:39 60 03/22/17 22:00 57 03/22/17 21:20 61 03/22/17 20:15 98.3 80 16 150/86 (107) 96 03/22/17 20:15 65 03/22/17 19:20 60 03/22/17 19:00 98.4 83 15 160/91 (114) 95 Nasal Cannula 2 03/22/17 18:00 82 17 158/97 (117) 96 Nasal Cannula 2 03/22/17 17:00 66 18 161/91 (114) 95 Nasal Cannula 2 03/22/17 16:00 87 15 153/89 (110) 97 Nasal Cannula 2 03/22/17 15:00 58 16 159/85 (109) 98 Nasal Cannula 2 03/22/17 14:30 59 15 158/88 (111) 95 Nasal Cannula 2 03/22/17 14:00 64 17 152/90 (110) 94 Nasal Cannula 4 03/22/17 13:45 60 19 162/85 (110) 94 Nasal Cannula 4 03/22/17 13:30 65 18 130/84 (99) 94 Nasal Cannula 4 03/22/17 13:14 97.7 62 20 124/71 (88) 93 Simple Mask 6 I/O 03/22/17 03/22/17 03/22/17 03/23/17 03/23/17 03/23/17 07:00 15:00 23:00 07:00 15:00 23:00 Intake Total 125 ml 20 ml 595 ml Output Total 1400 ml 1000 ml 150 ml Balance -1275 ml -980 ml 445 ml Intake Oral 25 ml 20 ml 595 ml IV Total 100 ml Output Urine Total 1400 ml 1000 ml 150 ml # Voids 1 Result Diagram: 03/22/1738 03/22/17637 Imaging Alert, fully oriented Lungs: ventilated Heart: S1, S2 regular Abdomen: soft, no mass Ext: no edema Current Medications Medications (Trade) Dose Ordered Sig/Makenna Route Start Time Stop Time Status Last Admin (Ativan) 1 mg UAT TESTER SL 03/22/17 06:30 03/25/17 06:29 (Lopressor) 25 mg UAT TESTER PRN PO 03/22/17 06:30 03/25/17 06:29 (Betadine 5% Antisepsis Kit) 1 applic UAT TESTER PRN EACH NARE 03/22/17 06:30 03/25/17 06:29 (Chlorhexidine 2% Cloth) 3 pack UAT TESTER PRN TOPICAL 03/22/17 06:30 03/25/17 06:29 (Percocet 5-325 Mg) 1 tab Q4H PRN PO 03/22/17 13:45 03/23/17 06:10 (Percocet 5-325 Mg) 2 tab Q4H PRN PO 03/22/17 13:45 (Ativan Inj) 0.5 mg UNSCH PRN IV PUSH 03/22/17 13:45 03/23/17 13:44 (Atropine Inj) 0.5 mg UNSCH PRN IV PUSH 03/22/17 13:45 Sodium Chloride 250 ml @ 500 mls/hr ONCE PRN IV 03/22/17 13:45 03/23/17 13:44 (Zofran Inj) 4 mg Q4H PRN IV PUSH 03/22/17 13:45 03/22/17 21:14 (Xylocaine 1% Inj) 10 ml UNSCH PRN INFIL 03/22/17 13:45 03/23/17 13:44 (Lipitor) 40 mg HS PO 03/22/17 21:00 03/22/17 21:16 (Vitamin D3) 5,000 units DAILY PO 03/23/17 09:00 03/23/17 08:46 (Vitamin B12) 250 mcg DAILY PO 03/23/17 09:00 03/23/17 08:46 (Toprol Xl) 50 mg DAILY PO 03/23/17 09:00 03/23/17 08:46 (Flomax) 0.4 mg HS PO 03/22/17 21:00 03/22/17 21:16 (Protonix) 20 mg DAILY PO 03/23/17 09:00 03/23/17 08:46 (Eliquis) 2.5 mg BID PO 03/22/17 21:00 03/23/17 08:46 (Cordarone) 400 mg BID PO 03/22/17 13:45 03/28/17 21:01 03/23/17 08:47 (Cordarone) 200 mg DAILY PO 03/29/17 09:00 (Pill Splitter) 1 ea UNSCH PRN OTHER 03/22/17 14:00 (Prinivil) 20 mg DAILY PO 03/23/17 09:00 03/23/17 08:47 (Hydrodiuril) 25 mg DAILY PO 03/23/17 09:00 03/23/17 08:47 Miscellaneous Information ALL NURSING DEPARTME... UNSCH PRN .XX 03/22/17 13:15 03/23/17 13:14 Assessment and Plan Problem List: (1) Atrial fibrillation with rapid ventricular response ICD Codes: I48.91 - Unspecified atrial fibrillation Status: Acute Plan: SP ablation In sinus rhythm Doing well Feeling better OK to Follow up as previously scheduled (2) Dyspnea ICD Codes: R06.00 - Dyspnea, unspecified Status: Acute Plan: Feeling better (3) Benign hypertension ICD Codes: I10 - Essential (primary) hypertension Plan: SBP 136 [place] MD Mar 23, 2017 10:19
[2017-03-23] MEDS ORDERED: AMIO200T PO ×2 (10:23)
[2017-03-23] MEDS ORDERED: APIX2.5T PO (10:23)
--- NOTE | 2017-03-23 10:57 | EKG ---
Date Performed: 03/23/2017 Time Performed: 05:23:12 PTAGE: 76 years EKG: Sinus rhythm Right bundle branch block Possible anterior infarct - age undetermined Inferior/lateral ST-T changes suggest myocardial injury/ischemia Abnormal ECG PREVIOUS TRACING : 03/22/2017 07.03 DOCTOR: Inderjit Bach Interpretating Date/Time 03/23/2017 10:54:16
[2017-03-23] MEDS ORDERED: ESSE250T PO (10:59)
--- NOTE | 2017-03-27 10:55 | ECHRPT ---
Indication: CONCLUSIONS Mild left atrial enlargement. No clot seen in left atrial nor left atrial appendage Adequate left ventricular systolic function. Ejection fraction 60% No right to left shunt BP: / HR: Rhythm: Technical Quality: Medications Conscious sedation was administered by anesthesiology Complications None Proc. Components FINDINGS LEFT VENTRICLE Adequate left ventricular wall contractility Ejection fraction 60-65% LEFT ATRIUM Mild enlargement ATRIAL APPENDAGES No clot seen in left atrial appendage ATRIAL SEPTUM no right to left shunt PERICADIUM No pericardial effusion King [place] MD (Electronically Signed) Final Date:27 March 2017 10:54
[2017-03-29] MEDS ORDERED: AMIODARONE 200 MG TAB PO SCH (09:00)
== END 2017-03-23 11:11 | disposition home or self-care (01) ==
LOC: HCAT 06:02 → HDIC 06:03 → HCPC 19:27 → HCAT 03-23 11:11
PROVIDERS: ATTEND Internal Medicine Interventional Cardiology
DX: I48.91 Unspecified atrial fibrillation (principal); I47.1 Supraventricular tachycardia; I11.9 Hypertensive heart disease without heart failure; I50.9 Heart failure, unspecified; I71.4 Abdominal aortic aneurysm, without rupture; E78.5 Hyperlipidemia, unspecified; Z79.01 Long term (current) use of anticoagulants
CPT/HCPCS: 00537; 80048; 85002; 85025; 85610; 85730; 86850; 86900; 86901; 93005; 93312; 93320; 93325; 93613; 93623; 93656; 93662; C1730; C1731; C1732; C1759; C1766; C2630; J1644; J1956; J2270; J2405; J2720; J3010; J7613; J1100; J2370; J2710